=== PATIENT | male | born 1980 | race African-American/Black ===

== ENCOUNTER 2019-03-03 09:54 | Inpatient (IN) | payer OTHER ==
[2019-03-03 11:10] VITALS: BMI 28.0
--- NOTE | 2019-03-03 14:12 | HP ---
CIWA Score Nausea/Vomitin-No Nausea/No Vomiting Muscle Tremors: 3 Anxiety: 2 Agitation: 0-Normal Activity Paroxysmal Sweats: 2 Orientation: 0-Oriented Tacttile Disturbances: 1-Very Mild Itch/Numbness Auditory Disturbances: 0-None Visual Disturbances: 0-None Headache: 5-Severe (8/10 COLEMAN of frontal) CIWA-Ar Total Score: 13 - Admission Criteria OASAS Guidelines: Admission for Medically Managed Detox: Requires at least one of the followin. CIWA greater than 12 2. Seizures within the past 24 hours 3. Delirium tremens within the past 24 hours 4. Hallucinations within the past 24 hours 5. Acute intervention needed for co occurring medical disorder 6. Acute intervention needed for co occurring psychiatric disorder 7. Severe withdrawal that cannot be handled at a lower level of care (continued vomiting, continued diarrhea, abnormal vital signs) requiring intravenous medication and/or fluids 8. Admission ROS S - [facility] Chief Complaint: Detox from EtOH and cocaine Allergies/Adverse Reactions: Allergies Allergy/AdvReac Type Severity Reaction Status Date / Time No Known Allergies Allergy Verified 03/03/19 11:05 History of Present Illness: 38M w/ pmh of eczema, depression, bipolar, insomonia presenting to [facility] for detox from EtOH, cocaine. Yesterday, seen at [facility] for chest pain but testing was all neg except for blood in urine. Drinks x8-10 24oz cans. Last drink ~2300. Started drinking at 14y/o. Starts drinking after lunch. Crashed bike once, CT H neg. Denies blackouts, tremors, seizures. Uses cocaine(nasal), $ 20 x2bags; once every 6mo. Started cocaine at 29y/o. Last cocaine was 1wk prior. Occasional MJ for insomnia. Smokes 1/2ppd. Denies IVDU. Incarcerated from 2009 - 2013 for armed bank robbery. Not on probation. Has relapsed in last few year. Has a that drinks. Last detox was ~late 90's. Lives with but has been undomiciled for ~1week. Does not currently work. Exam Limitations: No Limitations - Ebola screening Have you traveled outside of the country in the last 21 days: No Have you had contact with anyone from an Ebola affected area: No Do you have a fever: No - Review of Systems EENT: denies: Blurred Vision, Double Vision Respiratory: denies: Cough, Wheezing Cardiac: denies: Chest Pain, Chest Tightness GI: denies: Abdominal Distended, Nausea, Vomiting : reports: Dysuria. denies: Urgency Neuro: reports: Headache (9/10 pain in the frontal and top of head) Endocrine: denies: [place] Psychiatric: reports: Orientated x3, Agitated, Anxious Patient History - Patient Medical History Hx Cancer: No Hx Cardiac Disorders: No Hx Hypercholesterolemia: No HX Cerebrovascular Accident: No Hx Seizures: No Hx Diabetes: No Hx Gastrointestinal Disorders: No - Patient Surgical History Past Surgical History: No Hx Neurologic Surgery: No Hx Appendectomy: No Hx Cholecystectomy: No - Smoking Cessation Smoking history: Current every day smoker Have you smoked in the past 12 months: Yes Aproximately how many cigarettes per day: 10 Initiated information on smoking cessation: No - Substance & Tx. History Hx Alcohol Use: Yes Hx Substance Use: Yes Substance Use Type: Cocaine, Marijuana - Substances abused Alcohol Substance route: Oral Frequency: Daily Amount used: LIQUOR- 4PTS/ 5- 24OZ BEERS Age of first use: 14 Date of last use: 03/02/19 Family Disease History - Family Disease History Family Disease History: Heart Disease: Mother ([place] [id number]), Other: Daughter Other Family History: Uncle with lung and oral Ca Admission Physical Exam S - Vital Signs Vital Signs: Vital Signs - 24 hr 03/03/19 11:05 Temperature 98.2 F Pulse Rate 52 L Respiratory 18 Rate Blood Pressure 122/79 - Physical General Appearance: Yes: No Apparent Distress, Nourished, Appropriately Dressed HEENTM: Yes: Normocephalic, Pale Conjunctivae R, Pale Conjunctivae L, Scleral Ictenus R, Scleral Ictenus L Respiratory: Yes: Within Normal Limits, Chest Non-Tender, Lungs Clear, No Respiratory Distress, No Accessory Muscle Use. No: Wheezing Neck: Yes: Trachea in good position Cardiology: Yes: S1, S2, Tachycardia. No: Bradycardia, Systolic Murmur Abdominal: Yes: Non Tender, Flat, Soft Extremities: Yes: Normal Range of Motion Neurological: Yes: Fully Oriented, Alert Breathalyzer - Breathalyzer Breathalyzer: 0 Urine Drug Screen - Test Device Lot number: [id number] Expiration date: 11/14/20 - Control Is test valid?: Yes - Results Drug screen NEGATIVE: Yes Urine drug screen results: THC-Marijuana Inpatient Rehab Admission - Rehab Decision to Admit Inpatient rehab admission?: No
[2019-03-03] MEDS ORDERED: MAGNESIUM HYDROX 2400MG/30ML ORAL SUSPENSION 30 ML CUP PO PRN (14:35)
[2019-03-03] MEDS ORDERED: diazePAM 5 MG TABLET PO PRN (14:35)
[2019-03-03] MEDS ORDERED: hydrOXYzine PAMOATE 25 MG CAPSULE (FP) PO PRN (14:35)
[2019-03-03] MEDS ORDERED: MAG HYDROX/AL HYDROX/SIMETH 30 ML UNIT-DOSE CUP PO PRN (14:35)
[2019-03-03] MEDS ORDERED: NICOTINE POLACRILEX 2 MG GUM BUC PRN (14:35)
[2019-03-03] MEDS ORDERED: MENTHOL/PHENOL 1 EACH UD MM PRN (14:35)
[2019-03-03] MEDS ORDERED: MAGNESIUM CITRATE 300 ML BOTTLE PO PRN (14:35)
[2019-03-03] MEDS ORDERED: ACETAMINOPHEN 325 MG TABLET (FP) PO PRN ×2 (14:35)
[2019-03-03] MEDS ORDERED: METHOCARBAMOL 500 MG TABLET PO PRN (14:35)
[2019-03-03] MEDS ORDERED: IBUPROFEN 400 MG TABLET (FP) PO PRN (14:35)
[2019-03-03] MEDS ORDERED: BISMUTH SUBSALICYLATE 524 MG/30 ML UD PO PRN (14:35)
--- NOTE | 2019-03-03 14:40 | PN ---
Teaching Attending Note Name of Resident: Romaine Naik ATTENDING PHYSICIAN STATEMENT I saw and evaluated the patient. I reviewed the resident's note and discussed the case with the resident. I agree with the resident's findings and plan as documented. SUBJECTIVE: 38 Y.O. MALE W/ ETOH DEPENDENCE , REPORTS DAILY ETOH USE , CURRENT SYMPTOMS ABOVE , DENIES SEIZURES / BLACKOUTS/ OCCASIONAL TREMORS . PT IS HOSTILE, IRRITABLE AND ALEX , STATES NOT INTERESTED IN OUTPT PROGRAM OR INPT REHAB . STATES WENT TO [facility] 1 WEEK AGO 2/2 CHEST PAIN , PER PT ALL WNL , WENT AGAIN LAST NIGHT AND DECIDED TO COME TO DETOX INSTEAD. OBJECTIVE: WNWD Vital Signs - 24 hr 03/03/19 11:05 Temperature 98.2 F Pulse Rate 52 L Respiratory 18 Rate Blood Pressure 122/79 ASSESSMENT AND PLAN: ETOH DEPENDENCE - VALIUM TAPER .
[2019-03-03] MEDS: diazePAM 5 MG TABLET PO SCH ×2 (15:33→22:03)
[2019-03-03 16:39] LABS: HEMOGLOBIN 12.6 GM/dL (11.7-16.9); MCH 27.6 pg (25.7-33.7); MCHC 32.3 g/dl (32.0-35.9); MEAN CELL VOLUME 85.5 fl (80-96); MEAN PLT VOLUME 8.4 fl (7.5-11.1); PLATELET COUNT 252 K/MM3 (134-434); RBC 4.56 M/mm3 (4.00-5.60); RDW 13.2 % (11.9-15.9); WHITE BLOOD COUNT 5.8 K/mm3 (4.0-10.0)
[2019-03-03 16:54] LABS: ALBUMIN 3.9 g/dl (3.4-5.0); BILIRUBIN,TOTAL 0.4 mg/dL (0.2-1); CALCIUM 8.9 mg/dL (8.5-10.1); CREATININE 0.9 mg/dL (0.55-1.3); POTASSIUM 4.3 mmol/L (3.5-5.1); TOT PROT 7.5 g/dl (6.4-8.2)
[2019-03-03] MEDS: THIAMINE HCL 100 MG TABLET (FP) PO SCH (22:02)
[2019-03-03] MEDS: MELATONIN 5 MG TABLETS PO PRN (22:03)
[2019-03-04] MEDS: diazePAM 5 MG TABLET PO SCH ×3 (05:52→22:05)
[2019-03-04] MEDS: PRENATAL VITAMINS W/ FOLIC ACID TABLET (FP) PO SCH (10:23)
--- NOTE | 2019-03-04 11:44 | PN ---
[facility] CIWA - CIWA Score Nausea/Vomitin-Mild Nausea/No Vomiting Muscle Tremors: 3 Anxiety: 1-Mildly Anxious Agitation: 1-Slight > Activity Paroxysmal Sweats: 2 Orientation: 0-Oriented Tacttile Disturbances: 1-Very Mild Itch/Numbness Auditory Disturbances: 0-None Visual Disturbances: 0-None Headache: 1-Very Mild CIWA-Ar Total Score: 10 S Progress Note (SOAP) Subjective: doing well with valium detox regimen resting on bed comfortably tremor and sweating Objective: 03/04/19 11:43 Vital Signs Temperature 97.0 F L 03/04/19 09:33 Pulse Rate 80 03/04/19 09:33 Respiratory Rate 18 03/04/19 09:33 Blood Pressure 115/61 03/04/19 09:33 O2 Sat by Pulse Oximetry (%) Laboratory Last Values WBC 5.8 K/mm3 (4.0-10.0) 03/03/19 15:00 RBC 4.56 M/mm3 (4.00-5.60) 03/03/19 15:00 Hgb 12.6 GM/dL (11.7-16.9) 03/03/19 15:00 Hct 39.0 % (35.4-49) 03/03/19 15:00 MCV 85.5 fl (80-96) 03/03/19 15:00 MCH 27.6 pg (25.7-33.7) 03/03/19 15:00 MCHC 32.3 g/dl (32.0-35.9) 03/03/19 15:00 RDW 13.2 % (11.9-15.9) 03/03/19 15:00 Plt Count 252 K/MM3 (134-434) 03/03/19 15:00 MPV 8.4 fl (7.5-11.1) 03/03/19 15:00 Sodium 139 mmol/L (136-145) 03/03/19 15:00 Potassium 4.3 mmol/L (3.5-5.1) 03/03/19 15:00 Chloride 105 mmol/L (98-107) 03/03/19 15:00 Carbon Dioxide 30 mmol/L (21-32) 03/03/19 15:00 Anion Gap 5 MMOL/L (8-16) L 03/03/19 15:00 BUN 8.0 mg/dL (7-18) 03/03/19 15:00 Creatinine 0.9 mg/dL (0.55-1.3) 03/03/19 15:00 Est GFR (CKD-EPI)AfAm 124.26 03/03/19 15:00 Est GFR (CKD-EPI)NonAf 107.21 03/03/19 15:00 Random Glucose 80 mg/dL (74-106) 03/03/19 15:00 Calcium 8.9 mg/dL (8.5-10.1) 03/03/19 15:00 Total Bilirubin 0.4 mg/dL (0.2-1) 03/03/19 15:00 AST 14 U/L (15-37) L 03/03/19 15:00 ALT 18 U/L (13-61) 03/03/19 15:00 Alkaline Phosphatase 54 U/L (45-117) 03/03/19 15:00 Total Protein 7.5 g/dl (6.4-8.2) 03/03/19 15:00 Albumin 3.9 g/dl (3.4-5.0) 03/03/19 15:00 RPR Titer Nonreactive (NONREACTIVE) 03/03/19 15:00 lab noted Assessment: 03/04/19 11:43 alcohol withdrawal sx Plan: continue valium detox regimen
[2019-03-04] MEDS: MELATONIN 5 MG TABLETS PO PRN (22:05)
[2019-03-04] MEDS: THIAMINE HCL 100 MG TABLET (FP) PO SCH (22:05)
[2019-03-05] MEDS ORDERED: diazePAM 5 MG TABLET PO ONE (06:00)
[2019-03-05] MEDS ORDERED: diazePAM 5 MG TABLET PO SCH (06:00)
[2019-03-05] MEDS: PRENATAL VITAMINS W/ FOLIC ACID TABLET (FP) PO SCH (10:33)
--- NOTE | 2019-03-05 12:58 | PN ---
[facility] CIWA - CIWA Score Nausea/Vomitin-No Nausea/No Vomiting Muscle Tremors: 2 Anxiety: 2 Agitation: 2 Paroxysmal Sweats: No Perspiration Orientation: 0-Oriented Tacttile Disturbances: 1-Very Mild Itch/Numbness Auditory Disturbances: 0-None Visual Disturbances: 0-None Headache: 0-None Present CIWA-Ar Total Score: 7 S Progress Note (SOAP) Subjective: doing well with valium detox regimen discuss aftercare with staff prefers [facility] Objective: 03/05/19 12:59 Vital Signs Temperature 97.0 F L 03/05/19 10:00 Pulse Rate 84 03/05/19 10:00 Respiratory Rate 16 03/05/19 10:00 Blood Pressure 103/62 03/05/19 10:00 O2 Sat by Pulse Oximetry (%) Laboratory Last Values WBC 5.8 K/mm3 (4.0-10.0) 03/03/19 15:00 RBC 4.56 M/mm3 (4.00-5.60) 03/03/19 15:00 Hgb 12.6 GM/dL (11.7-16.9) 03/03/19 15:00 Hct 39.0 % (35.4-49) 03/03/19 15:00 MCV 85.5 fl (80-96) 03/03/19 15:00 MCH 27.6 pg (25.7-33.7) 03/03/19 15:00 MCHC 32.3 g/dl (32.0-35.9) 03/03/19 15:00 RDW 13.2 % (11.9-15.9) 03/03/19 15:00 Plt Count 252 K/MM3 (134-434) 03/03/19 15:00 MPV 8.4 fl (7.5-11.1) 03/03/19 15:00 Sodium 139 mmol/L (136-145) 03/03/19 15:00 Potassium 4.3 mmol/L (3.5-5.1) 03/03/19 15:00 Chloride 105 mmol/L (98-107) 03/03/19 15:00 Carbon Dioxide 30 mmol/L (21-32) 03/03/19 15:00 Anion Gap 5 MMOL/L (8-16) L 03/03/19 15:00 BUN 8.0 mg/dL (7-18) 03/03/19 15:00 Creatinine 0.9 mg/dL (0.55-1.3) 03/03/19 15:00 Est GFR (CKD-EPI)AfAm 124.26 03/03/19 15:00 Est GFR (CKD-EPI)NonAf 107.21 03/03/19 15:00 Random Glucose 80 mg/dL (74-106) 03/03/19 15:00 Calcium 8.9 mg/dL (8.5-10.1) 03/03/19 15:00 Total Bilirubin 0.4 mg/dL (0.2-1) 03/03/19 15:00 AST 14 U/L (15-37) L 03/03/19 15:00 ALT 18 U/L (13-61) 03/03/19 15:00 Alkaline Phosphatase 54 U/L (45-117) 03/03/19 15:00 Total Protein 7.5 g/dl (6.4-8.2) 03/03/19 15:00 Albumin 3.9 g/dl (3.4-5.0) 03/03/19 15:00 RPR Titer Nonreactive (NONREACTIVE) 03/03/19 15:00 TB (QFT) Incubation (.) 03/03/19 15:00 TB Test (QFT) Nil 0.03 IU/mL (.) 03/03/19 15:00 TB Test (QFT) Mitogen >10.00 IU/mL (.) 03/03/19 15:00 TB Test (QFT) Antigen 0.03 IU/mL (.) 03/03/19 15:00 TB Test (QFT) Negative (Negative) 03/03/19 15:00 TB Positive Criteria (.) 03/03/19 15:00 lab noted Assessment: 03/05/19 12:59 alcohol withdrawal sx Plan: continue valium detox regimen
[2019-03-05] MEDS: THIAMINE HCL 100 MG TABLET (FP) PO SCH (22:04)
[2019-03-05] MEDS: MELATONIN 5 MG TABLETS PO PRN (22:04)
[2019-03-06] MEDS ORDERED: diazePAM 5 MG TABLET PO ONE (06:00)
[2019-03-06 09:35] VITALS: BP 134/78; PULSE 84; TEMP 98.1
--- NOTE | 2019-03-06 19:27 | DS ---
[facility] Detox Discharge Summary Admission Date: 03/03/19 Discharge Date: 03/06/19 - History Present History: Alcohol Dependence Additional Comments: PATIENT RETURNING HOME. PATIENT ADVISED TO CONSIDER LOCAL 12-STEP / AA OUTPATIENT SUPPORT GROUP PROGRAMS FOR AFTERCARE. PATIENT VERBALIZED UNDERSTANDING OF RECOMMENDATION. PATIENT WAS DISCHARGED FROM DETOX UNIT IN STABLE MEDICAL CONDITION. Pertinent Past History: Eczema, Depression, Bipolar Disorder, Insomnia. - Physical Exam Results Vital Signs: Vital Signs Temperature 98.1 F 03/06/19 09:34 Pulse Rate 84 03/06/19 09:34 Respiratory Rate 18 03/06/19 09:34 Blood Pressure 134/78 03/06/19 09:34 O2 Sat by Pulse Oximetry (%) Pertinent Admission Physical Exam Findings: WITHDRAWAL SYMPTOMS. Laboratory Tests 03/03/19 03/03/19 03/03/19 15:00 15:00 15:00 WBC 5.8 RBC 4.56 Hgb 12.6 Hct 39.0 MCV 85.5 MCH 27.6 MCHC 32.3 RDW 13.2 Plt Count 252 MPV 8.4 Sodium 139 Potassium 4.3 Chloride 105 Carbon Dioxide 30 Anion Gap 5 L BUN 8.0 Creatinine 0.9 Est GFR (CKD-EPI)AfAm 124.26 Est GFR (CKD-EPI)NonAf 107.21 Random Glucose 80 Calcium 8.9 Total Bilirubin 0.4 AST 14 L ALT 18 Alkaline Phosphatase 54 Total Protein 7.5 Albumin 3.9 RPR Titer TB (QFT) Incubation TB Test (QFT) Nil 0.03 TB Test (QFT) Mitogen >10.00 TB Test (QFT) Antigen 0.03 TB Test (QFT) Negative TB Positive Criteria 03/03/19 15:00 WBC RBC Hgb Hct MCV MCH MCHC RDW Plt Count MPV Sodium Potassium Chloride Carbon Dioxide Anion Gap BUN Creatinine Est GFR (CKD-EPI)AfAm Est GFR (CKD-EPI)NonAf Random Glucose Calcium Total Bilirubin AST ALT Alkaline Phosphatase Total Protein Albumin RPR Titer Nonreactive TB (QFT) Incubation TB Test (QFT) Nil TB Test (QFT) Mitogen TB Test (QFT) Antigen TB Test (QFT) TB Positive Criteria LABS NOTED. - Treatment Hospital Course: Detox Protocol Followed, Detoxed Safely, Responded well, Discharged Condition Good Patient has Accepted a Rehab Referral to: PATIENT ADVISED TO CONSIDER LOCAL 12- STEP/AA OUTPATIENT SUPPORT GROUPS. - Medication Discharge Medications: Ambulatory Orders NK [No Known Home Medication] 03/03/19 - Diagnosis (1) Alcohol dependence with uncomplicated withdrawal Status: Acute - AMA Did Patient Leave Against Medical Advice: No S CIWA - CIWA Score Nausea/Vomitin-No Nausea/No Vomiting Muscle Tremors: None Anxiety: 0-No Anxiety, at Ease Agitation: 0-Normal Activity Paroxysmal Sweats: No Perspiration Orientation: 0-Oriented Tacttile Disturbances: 0-None Auditory Disturbances: 0-None Visual Disturbances: 0-None Headache: 0-None Present CIWA-Ar Total Score: 0
== END 2019-03-06 09:00 | disposition home or self-care (01) | DRG 774 ==
LOC: YASAS 09:54 → Y3N 14:45
PROVIDERS: ADMIT Surgery; ATTEND Surgery
PROC: HZ2ZZZZ Detoxification Services for Substance Abuse Treatment (ICD-10-PCS; principal; 2019-03-03)
DX: F10.230 Alcohol dependence with withdrawal, uncomplicated (principal); F14.20 Cocaine dependence, uncomplicated; F17.210 Nicotine dependence, cigarettes, uncomplicated; F31.9 Bipolar disorder, unspecified; G47.00 Insomnia, unspecified; L30.9 Dermatitis, unspecified
CPT/HCPCS: 36415; 80053; 85027; 86480; 86593

== ENCOUNTER 2019-03-20 12:36 | Inpatient (IN) | payer OTHER ==
[2019-03-20 14:22] VITALS: BMI 28.0
--- NOTE | 2019-03-20 16:12 | HP ---
CIWA Score Nausea/Vomitin-No Nausea/No Vomiting Muscle Tremors: 2 Anxiety: 2 Agitation: 0-Normal Activity Paroxysmal Sweats: 2 Orientation: 0-Oriented Tacttile Disturbances: 3-Moderate Itch/Numb/Burn Auditory Disturbances: 0-None Visual Disturbances: 1-Very Mild Sensitivity Headache: 3-Moderate CIWA-Ar Total Score: 13 - Admission Criteria OASAS Guidelines: Admission for Medically Managed Detox: Requires at least one of the followin. CIWA greater than 12 2. Seizures within the past 24 hours 3. Delirium tremens within the past 24 hours 4. Hallucinations within the past 24 hours 5. Acute intervention needed for co occurring medical disorder 6. Acute intervention needed for co occurring psychiatric disorder 7. Severe withdrawal that cannot be handled at a lower level of care (continued vomiting, continued diarrhea, abnormal vital signs) requiring intravenous medication and/or fluids 8. Patient presents the following: CIWA greater than 12 Admission Criteria Met: Admission criteria met Admitting History and Physical - Smoking History Smoking history: Current every day smoker Have you smoked in the past 12 months: Yes Aproximately how many cigarettes per day: 10 - Alcohol/Substance Use Hx Alcohol Use: Yes Admission ROS BHS - HPI Chief Complaint: alcohol withdrawal Allergies/Adverse Reactions: Allergies Allergy/AdvReac Type Severity Reaction Status Date / Time No Known Allergies Allergy Verified 03/20/19 14:08 History of Present Illness: Patient is a 38 yo AA, male, homeless, unemployed, with history of alcohol dependence is here seeking inpatient detox d/t withdrawal sx, patient was referred from [facility] after evaluated for chest pain. Denies hx of seizures and blackouts. Reports four year sobriety but relapse in 2013, patient is motivated at this time to attend rehab post detox. Last detox [facility] 03/03/19 -. PMHX: eczema. Psych: Bipolar and depression, denies SI/HI Denies hx of suicide attempt. Exam Limitations: No Limitations - Ebola screening Have you traveled outside of the country in the last 21 days: No Have you had contact with anyone from an Ebola affected area: No Do you have a fever: No - Review of Systems Constitutional: Changes in sleep, Unintentional Wgt. Loss EENT: reports: No Symptoms Reported Respiratory: reports: No Symptoms reported Cardiac: reports: See HPI, Lightheadedness GI: reports: Poor Appetite, Poor Fluid Intake : reports: No Symptoms Reported Musculoskeletal: reports: Back Pain Integumentary: reports: See HPI, Dryness, Pruritus Neuro: reports: Headache Endocrine: reports: No Symptoms Reported Hematology: reports: No Symptoms Reported Psychiatric: reports: Orientated x3, Anxious Other Systems: Reviewed and Negative Patient History - Patient Medical History Hx Anemia: No Hx Asthma: No Hx Chronic Obstructive Pulmonary Disease (COPD): No Hx Cancer: No Hx Cardiac Disorders: No Hx Congestive Heart Failure: No Hx Hypertension: No Hx Hypercholesterolemia: No Hx Pacemaker: No HX Cerebrovascular Accident: No Hx Seizures: No Hx Diabetes: No Hx Gastrointestinal Disorders: No Hx Liver Disease: No Hx Genitourinary Disorders: No Hx Sexually Transmitted Disorders: No Hx Renal Disease (ESRD): No Hx Thyroid Disease: No Hx Human Immunodeficiency Virus (HIV): No Hx Hepatitis C: No Hx Depression: Yes Hx Suicide Attempt: No Hx Bipolar Disorder: Yes Hx Schizophrenia: No - Patient Surgical History Past Surgical History: No Hx Neurologic Surgery: No Hx Cataract Extraction: No Hx Cardiac Surgery: No Hx Lung Surgery: No Hx Breast Surgery: No Hx Breast Biopsy: No Hx Abdominal Surgery: No Hx Appendectomy: No Hx Cholecystectomy: No Hx Genitourinary Surgery: No Hx Section: No Hx Orthopedic Surgery: No Anesthesia Reaction: No - PPD History Previous Implant?: No (NEgative Quantiferon 02/2019) Documented Results: Negative w/proof PPD to be Administered?: No - Smoking Cessation Smoking history: Current every day smoker Have you smoked in the past 12 months: Yes Aproximately how many cigarettes per day: 10 Hx Chewing Tobacco Use: No Initiated information on smoking cessation: Yes 'Breaking Loose' booklet given: 03/20/19 - Substance & Tx. History Hx Alcohol Use: Yes Hx Substance Use: Yes Substance Use Type: Alcohol, Cocaine, Marijuana Hx Substance Use Treatment: Yes ([facility] 03/03/19 -03/06/19) - Substances abused Alcohol Substance route: Oral Frequency: Daily Amount used: 2- 3 cans x 24 ounces of beer + 1/4 pint liquor Age of first use: 14 Date of last use: 03/19/19 Cocaine Substance route: Inhalation Frequency: 1-3 times last 30 days Amount used: 1 to 2 dime bag Age of first use: 29 Date of last use: 03/04/19 Marijuana/Hashish Substance route: Smoking Frequency: Daily Amount used: 3 bags Age of first use: 14 Date of last use: 03/17/19 Admission Physical Exam BHS - Vital Signs Vital Signs: Vital Signs - 24 hr 03/20/19 14:06 Temperature 97.7 F Pulse Rate 69 Respiratory 18 Rate Blood Pressure 109/69 - Physical General Appearance: Yes: Appropriately Dressed, Mild Distress, Anxious HEENTM: Yes: EOMI, Hearing grossly Normal, Normal ENT Inspection, Pharynx Normal , Tm's normal Respiratory: Yes: Chest Non-Tender, Lungs Clear, Normal Breath Sounds, No Respiratory Distress, No Accessory Muscle Use Neck: Yes: Within Normal Limits Breast: Yes: Breast Exam Deferred Cardiology: Yes: Regular Rhythm, Regular Rate Abdominal: Yes: Normal Bowel Sounds, Non Tender, Flat, Soft Genitourinary: Yes: Within Normal Limits Back: Yes: Normal Inspection Musculoskeletal: Yes: full range of Motion, Gait Steady, Pelvis Stable Extremities: Yes: Normal Capillary Refill, Normal Inspection, Normal Range of Motion, Non-Tender Neurological: Yes: batching operator II-XII NML intact, Fully Oriented, Alert, Motor Strength 5/5, Normal Mood/Affect, Normal Response Integumentary: Yes: Normal Color, Dry, Warm Lymphatic: Yes: Within Normal Limits - Diagnostic (1) Psychiatric disorder Current Visit: Yes Status: Suspected Comment: psych consult ordered (2) Eczema Current Visit: Yes Status: Chronic Qualifiers: Eczema type: flexural Qualified Code(s): L20.82 - Flexural eczema (3) Alcohol dependence with uncomplicated withdrawal Current Visit: Yes Status: Acute Comment: detox follow with rehab eductaed on MAT re: vivitrol benefits and risks harm reduction reviewed Breathalyzer - Breathalyzer Breathalyzer: 0 Urine Drug Screen - Test Device Lot number: [id number] Expiration date: 11/14/20 - Control Is test valid?: Yes - Results Drug screen NEGATIVE: Yes Urine drug screen results: THC-Marijuana Inpatient Rehab Admission - Rehab Decision to Admit Inpatient rehab admission?: No
[2019-03-20] MEDS ORDERED: MAG HYDROX/AL HYDROX/SIMETH 30 ML UNIT-DOSE CUP PO PRN (16:19)
[2019-03-20] MEDS ORDERED: chlordiazePOXIDE HCL 10 MG CAPSULE PO PRN (16:19)
[2019-03-20] MEDS ORDERED: MAGNESIUM HYDROX 2400MG/30ML ORAL SUSPENSION 30 ML CUP PO PRN (16:19)
[2019-03-20] MEDS ORDERED: hydrOXYzine PAMOATE 25 MG CAPSULE (FP) PO PRN (16:19)
[2019-03-20] MEDS ORDERED: METHOCARBAMOL 500 MG TABLET PO PRN (16:19)
[2019-03-20] MEDS ORDERED: ACETAMINOPHEN 325 MG TABLET (FP) PO PRN ×2 (16:19)
[2019-03-20] MEDS ORDERED: BISMUTH SUBSALICYLATE 524 MG/30 ML UD PO PRN (16:19)
[2019-03-20] MEDS ORDERED: IBUPROFEN 400 MG TABLET (FP) PO PRN (16:19)
[2019-03-20] MEDS ORDERED: MENTHOL/PHENOL 1 EACH UD MM PRN (16:19)
[2019-03-20] MEDS ORDERED: MAGNESIUM CITRATE 300 ML BOTTLE PO PRN (16:19)
[2019-03-20] MEDS ORDERED: diphenhydrAMINE HCL 50 MG CAPSULE PO PRN (16:20)
[2019-03-20] MEDS: chlordiazePOXIDE HCL 25 MG CAPSULE PO SCH (22:14)
[2019-03-20] MEDS: MELATONIN 5 MG TABLETS PO PRN (22:14)
[2019-03-20] MEDS: THIAMINE HCL 100 MG TABLET (FP) PO SCH (22:14)
[2019-03-21] MEDS: chlordiazePOXIDE HCL 25 MG CAPSULE PO SCH ×2 (05:53→13:10)
--- NOTE | 2019-03-21 09:47 | EKG ---
Test Reason : Blood Pressure : / mmHG Vent. Rate : 063 BPM Atrial Rate : 063 BPM P-R Int : 144 ms QRS Dur : 080 ms QT Int : 430 ms P-R-T Axes : 024 045 -09 degrees QTc Int : 440 ms NORMAL SINUS RHYTHM WITH SINUS ARRHYTHMIA NONSPECIFIC ST ABNORMALITY NO PREVIOUS ECGS AVAILABLE Confirmed by TIMOTHY SANCHEZ, DARRIN ([id number]) on 03/21/2019 9:47:29 AM Referred By: BHARATH LUNDY Confirmed By:DARRIN AGUIRRE MD
[2019-03-21] MEDS: PRENATAL VITAMINS W/ FOLIC ACID TABLET (FP) PO SCH (10:35)
[2019-03-21 11:20] LABS: HEMATOCRIT 36.7 % (35.4-49); HEMOGLOBIN 12.3 GM/dL (11.7-16.9); MCH 28.1 pg (25.7-33.7); MCHC 33.5 g/dl (32.0-35.9); MEAN PLT VOLUME 8.3 fl (7.5-11.1); PLATELET COUNT 250 K/MM3 (134-434); RBC 4.37 M/mm3 (4.00-5.60); RDW 13.6 % (11.9-15.9); WHITE BLOOD COUNT 5.5 K/mm3 (4.0-10.0)
[2019-03-21 11:26] LABS: ALBUMIN 3.6 g/dl (3.4-5.0); BILIRUBIN,TOTAL 0.4 mg/dL (0.2-1); BLOOD UREA NITROGEN 11.1 mg/dL (7-18); CALCIUM 8.4 mg/dL (8.5-10.1); CREATININE 0.9 mg/dL (0.55-1.3); TOT PROT 6.5 g/dl (6.4-8.2)
--- NOTE | 2019-03-21 14:21 | CONSULT ---
[facility] Psychiatric Consult - Data Date of interview: 03/21/19 Admission source: [facility] Identifying data: Patient is a 38 year old single male, without children, unemployed, domiciled, and is supported by food stamps. This is one of multiple admissions for patient. Patient admitted to for alcohol and cocaine dependence. Substance Abuse History: Smoking Cessation. Smoking history: Current every day smoker. Have you smoked in the past 12 months: Yes. Aproximately how many cigarettes per day: 10. Hx Chewing Tobacco Use: No. Initiated information on smoking cessation: Yes. 'Breaking Loose' booklet given: 03/20/19. - Substance & Tx. History. Hx Alcohol Use: Yes. Hx Substance Use: Yes. Substance Use Type : Alcohol, Cocaine, Marijuana. Hx Substance Use Treatment: Yes ([facility] 03/03/19 -). - Substances abused. Alcohol. Substance route: Oral. Frequency: Daily. Amount used: 2- 3 cans x 24 ounces of beer + 1/4 pint liquor. Age of first use: 14. Date of last use: 03/19/19. Cocaine. Substance route: Inhalation. Frequency: 1-3 times last 30 days. Amount used: 1 to 2 dime bag. Age of first use: 29. Date of last use: 03/04/19. Marijuana/Hashish. Substance route: Smoking. Frequency: Daily. Amount used: 3 bags. Age of first use: 14. Date of last use: 03/17/19 Medical History: denies. Psychiatric History: Patient denies history of psychiatric hospitalizations and suicide attempt. Mr. Andrade reports seeing a psychiatrist one time while in his 20's and reports being diagnosed with bipolar depression. Patient unable to recall the medications prescribed to him. At present patient reports stable mood but is experiencing diffficulty sleeping. Physical/Sexual Abuse/Trauma History: denies. Mental Status Exam - Mental Status Exam Alert and Oriented to: Time, Place, Person Cognitive Function: Good Patient Appearance: Well Groomed Mood: Euthymic Affect: Mood Congruent Patient Behavior: Cooperative Speech Pattern: Appropriate Voice Loudness: Normal Thought Process: Goal Oriented Thought Disorder: Not Present Hallucinations: Denies Suicidal Ideation: Denies Homicidal Ideation: Denies Insight/Judgement: Poor Sleep: Poorly Appetite: Fair Muscle strength/Tone: Normal Gait/Station: Normal Psychiatric Findings - Problem List ([place] 1, 2,3) (1) Cocaine dependence Current Visit: Yes Status: Acute (2) Alcohol dependence with uncomplicated withdrawal Current Visit: Yes Status: Acute Comment: detox follow with rehab eductaed on MAT re: vivitrol benefits and risks harm reduction reviewed (3) Substance-induced sleep disorder Current Visit: Yes Status: Acute (4) Substance induced mood disorder Current Visit: Yes Status: Suspected - Initial Treatment Plan Initial Treatment Plan: Psychoeducation provided. Detoxification in progress. Will order Seroquel 50mg (as per patient's requst) for insomnia. Patient reports favorable effects from previously accepting seroquel in the past. Benefits and side effects discussed. Verbal consent given.
[2019-03-21] MEDS ORDERED: diazePAM 5 MG TABLET PO ONE (14:34)
--- NOTE | 2019-03-21 14:44 | PN ---
S CIWA - CIWA Score Nausea/Vomitin-No Nausea/No Vomiting Muscle Tremors: 3 Anxiety: 3 Agitation: 0-Normal Activity Paroxysmal Sweats: No Perspiration Orientation: 0-Oriented Tacttile Disturbances: 1-Very Mild Itch/Numbness Auditory Disturbances: 0-None Visual Disturbances: 2-Mild Sensitivity Headache: 3-Moderate CIWA-Ar Total Score: 12 BHS Progress Note (SOAP) Subjective: Anxious, Tremors, Fatigue, H/A. Objective: PATIENT A & O X 3. IN NO ACUTE DISTRESS. 03/21/19 14:41 Vital Signs Temperature 98.1 F 03/21/19 14:38 Pulse Rate 68 03/21/19 14:38 Respiratory Rate 18 03/21/19 14:38 Blood Pressure 123/75 03/21/19 14:38 O2 Sat by Pulse Oximetry (%) Laboratory Tests 03/21/19 03/21/19 08:10 08:10 WBC 5.5 RBC 4.37 Hgb 12.3 Hct 36.7 MCV 84.0 MCH 28.1 MCHC 33.5 RDW 13.6 Plt Count 250 MPV 8.3 Sodium 141 Potassium 4.0 Chloride 105 Carbon Dioxide 29 Anion Gap 7 L BUN 11.1 Creatinine 0.9 Est GFR (CKD-EPI)AfAm 124.26 Est GFR (CKD-EPI)NonAf 107.21 Random Glucose 64 L Calcium 8.4 L Total Bilirubin 0.4 AST 19 ALT 23 Alkaline Phosphatase 59 Total Protein 6.5 Albumin 3.6 LABS NOTED. DETOX ADMISSION RPR RESULT PENDING. 03/21/19 14:44 Assessment: 03/21/19 14:41 WITHDRAWAL SYMPTOMS. Plan: CONTINUE DETOX. PATIENT REPORTS THAT LIBRIUM IS CAUSING HIM TO HAVE A HEADACHE AND THAT HAS HAPPENED IN THE PAST WHEN HE HAS TAKEN LIBRIUM, WELL. AT PATIENT'S REQUEST, LIBRIUM MEDICATION REGIMEN CHANGED TO VALIUM MEDICATION REGIMEN.
[2019-03-21] MEDS: MELATONIN 5 MG TABLETS PO PRN (22:22)
[2019-03-21] MEDS: THIAMINE HCL 100 MG TABLET (FP) PO SCH (22:22)
[2019-03-21] MEDS: QUEtiapine FUMARATE 50 MG TABLET PO SCH (22:22)
[2019-03-21] MEDS: diazePAM 5 MG TABLET PO SCH (22:22)
[2019-03-22] MEDS ORDERED: chlordiazePOXIDE 5 MG CAPSULE PO SCH (05:00)
[2019-03-22] MEDS: diazePAM 5 MG TABLET PO SCH ×3 (05:54→22:16)
[2019-03-22] MEDS: diazePAM 5 MG TABLET PO PRN (10:24)
[2019-03-22] MEDS: PRENATAL VITAMINS W/ FOLIC ACID TABLET (FP) PO SCH (10:24)
--- NOTE | 2019-03-22 10:38 | PN ---
[facility] CIWA - CIWA Score Nausea/Vomitin-No Nausea/No Vomiting Muscle Tremors: 2 Anxiety: 3 Agitation: 2 Paroxysmal Sweats: 1-Minimal Palms Moist Orientation: 0-Oriented Tacttile Disturbances: 0-None Auditory Disturbances: 0-None Visual Disturbances: 0-None Headache: 0-None Present CIWA-Ar Total Score: 8 S Progress Note (SOAP) Subjective: doing well with valium detox regimen ambulating on hallway social with peers in day room less tremor mild anxiety Objective: 03/22/19 10:38 Vital Signs Temperature 96.8 F L 03/22/19 09:09 Pulse Rate 83 03/22/19 09:09 Respiratory Rate 18 03/22/19 09:09 Blood Pressure 110/75 03/22/19 09:09 O2 Sat by Pulse Oximetry (%) Laboratory Last Values WBC 5.5 K/mm3 (4.0-10.0) 03/21/19 08:10 RBC 4.37 M/mm3 (4.00-5.60) 03/21/19 08:10 Hgb 12.3 GM/dL (11.7-16.9) 03/21/19 08:10 Hct 36.7 % (35.4-49) 03/21/19 08:10 MCV 84.0 fl (80-96) 03/21/19 08:10 MCH 28.1 pg (25.7-33.7) 03/21/19 08:10 MCHC 33.5 g/dl (32.0-35.9) 03/21/19 08:10 RDW 13.6 % (11.9-15.9) 03/21/19 08:10 Plt Count 250 K/MM3 (134-434) 03/21/19 08:10 MPV 8.3 fl (7.5-11.1) 03/21/19 08:10 Sodium 141 mmol/L (136-145) 03/21/19 08:10 Potassium 4.0 mmol/L (3.5-5.1) 03/21/19 08:10 Chloride 105 mmol/L (98-107) 03/21/19 08:10 Carbon Dioxide 29 mmol/L (21-32) 03/21/19 08:10 Anion Gap 7 MMOL/L (8-16) L 03/21/19 08:10 BUN 11.1 mg/dL (7-18) 03/21/19 08:10 Creatinine 0.9 mg/dL (0.55-1.3) 03/21/19 08:10 Est GFR (CKD-EPI)AfAm 124.26 03/21/19 08:10 Est GFR (CKD-EPI)NonAf 107.21 03/21/19 08:10 Random Glucose 64 mg/dL (74-106) L 03/21/19 08:10 Calcium 8.4 mg/dL (8.5-10.1) L 03/21/19 08:10 Total Bilirubin 0.4 mg/dL (0.2-1) 03/21/19 08:10 AST 19 U/L (15-37) 03/21/19 08:10 ALT 23 U/L (13-61) 03/21/19 08:10 Alkaline Phosphatase 59 U/L (45-117) 03/21/19 08:10 Total Protein 6.5 g/dl (6.4-8.2) 03/21/19 08:10 Albumin 3.6 g/dl (3.4-5.0) 03/21/19 08:10 RPR Titer Nonreactive (NONREACTIVE) 03/21/19 08:10 lab noted Assessment: 03/22/19 10:38 alcohol withdrawal sx Plan: continue valium detox regimen
[2019-03-22] MEDS: QUEtiapine FUMARATE 50 MG TABLET PO SCH (22:16)
[2019-03-22] MEDS: THIAMINE HCL 100 MG TABLET (FP) PO SCH (22:16)
[2019-03-22] MEDS: MELATONIN 5 MG TABLETS PO PRN (22:17)
[2019-03-23] MEDS ORDERED: chlordiazePOXIDE HCL 10 MG CAPSULE PO PRN
[2019-03-23] MEDS ORDERED: chlordiazePOXIDE HCL 10 MG CAPSULE PO SCH (05:00)
[2019-03-23] MEDS: diazePAM 5 MG TABLET PO SCH ×2 (05:46→17:28)
[2019-03-23] MEDS: diazePAM 5 MG TABLET PO PRN ×2 (08:39→13:32)
[2019-03-23] MEDS: PRENATAL VITAMINS W/ FOLIC ACID TABLET (FP) PO SCH (10:15)
[2019-03-23 13:17] VITALS: PULSE 75
--- NOTE | 2019-03-23 14:54 | PN ---
S CIWA - CIWA Score Nausea/Vomitin-No Nausea/No Vomiting Muscle Tremors: 2 Anxiety: 2 Agitation: 1-Slight > Activity Paroxysmal Sweats: 3 Orientation: 0-Oriented Tacttile Disturbances: 0-None Auditory Disturbances: 0-None Visual Disturbances: 0-None Headache: 0-None Present CIWA-Ar Total Score: 8 BHS Progress Note (SOAP) Subjective: Sweating, Anxious, Tremors. Patient reports That Current Withdrawal / Detox Symptoms have Subsided considerably in severity since time of admission to Detox Unit. Objective: PATIENT A & O X 3, OBSERVED AMBULATING ON DETOX UNIT UNASSISTED. IN NO ACUTE DISTRESS. 03/23/19 14:53 Vital Signs Temperature 99.3 F 03/23/19 13:16 Pulse Rate 75 03/23/19 13:16 Respiratory Rate 18 03/23/19 13:16 Blood Pressure 118/71 03/23/19 13:16 O2 Sat by Pulse Oximetry (%) Laboratory Tests 03/21/19 03/21/19 03/21/19 08:10 08:10 08:10 WBC 5.5 RBC 4.37 Hgb 12.3 Hct 36.7 MCV 84.0 MCH 28.1 MCHC 33.5 RDW 13.6 Plt Count 250 MPV 8.3 Sodium 141 Potassium 4.0 Chloride 105 Carbon Dioxide 29 Anion Gap 7 L BUN 11.1 Creatinine 0.9 Est GFR (CKD-EPI)AfAm 124.26 Est GFR (CKD-EPI)NonAf 107.21 Random Glucose 64 L Calcium 8.4 L Total Bilirubin 0.4 AST 19 ALT 23 Alkaline Phosphatase 59 Total Protein 6.5 Albumin 3.6 RPR Titer Nonreactive LABS NOTED. Assessment: 03/23/19 14:53 WITHDRAWAL SYMPTOMS. Plan: CONTINUE DETOX. PATIENT SCHEDULED FOR D/C FROM DETOX UNIT TOMORROW.
[2019-03-23 17:02] VITALS: BP 106/64; TEMP 97.7
--- NOTE | 2019-03-23 18:42 | PN ---
S Progress Note Note: Patient requesting to leave tonight instead of in a.m. Patient alert and oriented. Gait steady. CIWA-AR Score = 0. Vital Signs 03/23/19 03/23/19 13:16 17:01 Temperature 99.3 F 97.7 F Pulse Rate 75 75 Respiratory 18 18 Rate Blood Pressure 118/71 106/64 Laboratory Last Values WBC 5.5 K/mm3 (4.0-10.0) 03/21/19 08:10 RBC 4.37 M/mm3 (4.00-5.60) 03/21/19 08:10 Hgb 12.3 GM/dL (11.7-16.9) 03/21/19 08:10 Hct 36.7 % (35.4-49) 03/21/19 08:10 MCV 84.0 fl (80-96) 03/21/19 08:10 MCH 28.1 pg (25.7-33.7) 03/21/19 08:10 MCHC 33.5 g/dl (32.0-35.9) 03/21/19 08:10 RDW 13.6 % (11.9-15.9) 03/21/19 08:10 Plt Count 250 K/MM3 (134-434) 03/21/19 08:10 MPV 8.3 fl (7.5-11.1) 03/21/19 08:10 Sodium 141 mmol/L (136-145) 03/21/19 08:10 Potassium 4.0 mmol/L (3.5-5.1) 03/21/19 08:10 Chloride 105 mmol/L (98-107) 03/21/19 08:10 Carbon Dioxide 29 mmol/L (21-32) 03/21/19 08:10 Anion Gap 7 MMOL/L (8-16) L 03/21/19 08:10 BUN 11.1 mg/dL (7-18) 03/21/19 08:10 Creatinine 0.9 mg/dL (0.55-1.3) 03/21/19 08:10 Est GFR (CKD-EPI)AfAm 124.26 03/21/19 08:10 Est GFR (CKD-EPI)NonAf 107.21 03/21/19 08:10 Random Glucose 64 mg/dL (74-106) L 03/21/19 08:10 Calcium 8.4 mg/dL (8.5-10.1) L 03/21/19 08:10 Total Bilirubin 0.4 mg/dL (0.2-1) 03/21/19 08:10 AST 19 U/L (15-37) 03/21/19 08:10 ALT 23 U/L (13-61) 03/21/19 08:10 Alkaline Phosphatase 59 U/L (45-117) 03/21/19 08:10 Total Protein 6.5 g/dl (6.4-8.2) 03/21/19 08:10 Albumin 3.6 g/dl (3.4-5.0) 03/21/19 08:10 RPR Titer Nonreactive (NONREACTIVE) 03/21/19 08:10 Discussed alcohol use and risks for relapse. Patient encourage to continue cessation of illicit drugs. Discussed nicotine use and encouraged continued cessation. Patient agrees to NRT prescriptions. Patient requesting sleep aide and discussed w/ patient behavioral and dietary changes to promote sleep. Will provide a script for Melatonin. Patient has eczema and requesting cortisone cream.
--- NOTE | 2019-03-23 18:55 | DS ---
[facility] Detox Discharge Summary Admission Date: 03/20/19 Discharge Date: 03/23/19 - History Present History: Alcohol Dependence Additional Comments: patient admitted w/ alcohol withdrawal symptoms requesting detox. Pertinent Past History: Patient w/ co-occurring hx cannabis use disorder cocaine use. Patient w/ hx eczema and c/o insomnia. - Physical Exam Results Vital Signs: Vital Signs Temperature 97.7 F 03/23/19 17:01 Pulse Rate 75 03/23/19 17:01 Respiratory Rate 18 03/23/19 17:01 Blood Pressure 106/64 03/23/19 17:01 O2 Sat by Pulse Oximetry (%) Pertinent Admission Physical Exam Findings: Patient admitted to detox w/ alcohol withdrawal symptoms. Laboratory Last Values WBC 5.5 K/mm3 (4.0-10.0) 03/21/19 08:10 RBC 4.37 M/mm3 (4.00-5.60) 03/21/19 08:10 Hgb 12.3 GM/dL (11.7-16.9) 03/21/19 08:10 Hct 36.7 % (35.4-49) 03/21/19 08:10 MCV 84.0 fl (80-96) 03/21/19 08:10 MCH 28.1 pg (25.7-33.7) 03/21/19 08:10 MCHC 33.5 g/dl (32.0-35.9) 03/21/19 08:10 RDW 13.6 % (11.9-15.9) 03/21/19 08:10 Plt Count 250 K/MM3 (134-434) 03/21/19 08:10 MPV 8.3 fl (7.5-11.1) 03/21/19 08:10 Sodium 141 mmol/L (136-145) 03/21/19 08:10 Potassium 4.0 mmol/L (3.5-5.1) 03/21/19 08:10 Chloride 105 mmol/L (98-107) 03/21/19 08:10 Carbon Dioxide 29 mmol/L (21-32) 03/21/19 08:10 Anion Gap 7 MMOL/L (8-16) L 03/21/19 08:10 BUN 11.1 mg/dL (7-18) 03/21/19 08:10 Creatinine 0.9 mg/dL (0.55-1.3) 03/21/19 08:10 Est GFR (CKD-EPI)AfAm 124.26 03/21/19 08:10 Est GFR (CKD-EPI)NonAf 107.21 03/21/19 08:10 Random Glucose 64 mg/dL (74-106) L 03/21/19 08:10 Calcium 8.4 mg/dL (8.5-10.1) L 03/21/19 08:10 Total Bilirubin 0.4 mg/dL (0.2-1) 03/21/19 08:10 AST 19 U/L (15-37) 03/21/19 08:10 ALT 23 U/L (13-61) 03/21/19 08:10 Alkaline Phosphatase 59 U/L (45-117) 03/21/19 08:10 Total Protein 6.5 g/dl (6.4-8.2) 03/21/19 08:10 Albumin 3.6 g/dl (3.4-5.0) 03/21/19 08:10 RPR Titer Nonreactive (NONREACTIVE) 03/21/19 08:10 labs reviewed. - Treatment Hospital Course: Detox Protocol Followed, Detoxed Safely, Responded well, Discharged Condition Good - Medication Discharge Medications: Ambulatory Orders Diphenhydramine [Benadryl Capsule -] 50 mg PO HS PRN 03/20/19 Hydrocortisone 1% Cream [Hytone 1% Cream -] 1 applic TP BID #1 tube 03/23/19 Melatonin 10 mg PO HS PRN #30 tab 03/23/19 Nicotine Polacrilex [Nicotine Gum] 2 mg BC Q2H PRN #90 gum 03/23/19 Nicotine [Nicotine Patch 21 mg/24 hr] 1 each TD DAILY #30 patch.td24 03/23/19 - Diagnosis (1) Insomnia Status: Chronic Qualifiers: Insomnia type: unspecified Qualified Code(s): G47.00 - Insomnia, unspecified (2) Alcohol dependence with uncomplicated withdrawal Status: Acute (3) Cocaine dependence Status: Chronic Qualifiers: Substance use status: uncomplicated Qualified Code(s): F14.20 - Cocaine dependence, uncomplicated (4) Eczema Status: Chronic Qualifiers: Eczema type: unspecified Qualified Code(s): L30.9 - Dermatitis, unspecified - AMA Did Patient Leave Against Medical Advice: No (Discharge medications provided.)
[2019-03-24] MEDS ORDERED: chlordiazePOXIDE HCL 10 MG CAPSULE PO ONE (05:00)
[2019-03-24] MEDS ORDERED: diazePAM 5 MG TABLET PO ONE (06:00)
== END 2019-03-23 18:42 | disposition home or self-care (01) | DRG 774 ==
LOC: YASAS 12:36 → Y3N 16:49
PROVIDERS: ADMIT Allergy & Immunology; ATTEND Allergy & Immunology
PROC: HZ2ZZZZ Detoxification Services for Substance Abuse Treatment (ICD-10-PCS; principal; 2019-03-20)
DX: F10.230 Alcohol dependence with withdrawal, uncomplicated (principal); F14.20 Cocaine dependence, uncomplicated; F17.210 Nicotine dependence, cigarettes, uncomplicated; F19.24 Other psychoactive substance dependence with psychoactive substance-induced mood disorder; F19.282 Other psychoactive substance dependence with psychoactive substance-induced sleep disorder; F99 Mental disorder, not otherwise specified; G47.00 Insomnia, unspecified; L30.9 Dermatitis, unspecified; Z56.0 Unemployment, unspecified; Z59.0 Homelessness
CPT/HCPCS: 36415; 80053; 85027; 86593; 93005; 93010

== ENCOUNTER 2019-12-14 11:53 | Inpatient (IN) | payer OTHER ==
[2019-12-14 12:09] VITALS: BMI 28.7
--- NOTE | 2019-12-14 12:17 | PDOC ---
History of Present Illness - General Chief Complaint: Chest Pain Stated Complaint: Chest Pain - History of Present Illness Initial Comments: 12/14/19 12:27 39 year old man with a history of alcohol, cocaine and K2 dependence who presents from [facility] with nonradiating, pressure like 7/10 chest pain that started last night. The patient reports that pain initally at a 10/10, has persisted but subsided. The patient reports that he has had this pain on and off for hte past 6 months that occurs when walking and worse with walking uphill, resolved with sleeping, however this time his pain has persisted more than past episodes. He reports some shortness of breath on past episodes but not currently and he endorses some nausea. He has no other complaints. He last used K2 and cocaine two days ago He normally drinks 10 cans of 24oz beer, last drank was last night. ROS GENERAL/CONSTITUTIONAL: No fever or chills. No weakness. HEAD, EYES, EARS, NOSE AND THROAT: No change in vision. No ear pain or discharge. No sore throat. CARDIOVASCULAR: + chest pain or shortness of breath RESPIRATORY: No cough, wheezing, or hemoptysis. GASTROINTESTINAL: No nausea, vomiting, diarrhea or constipation. GENITOURINARY: No dysuria, frequency, or change in urination. MUSCULOSKELETAL: No joint or muscle swelling or pain. No neck or back pain. SKIN: No rash NEUROLOGIC: No headache, vertigo, loss of consciousness, or change in strength/sensation. ENDOCRINE: No increased thirst. No abnormal weight change HEMATOLOGIC/LYMPHATIC: No anemia, easy bleeding, or history of blood clots. ALLERGIC/IMMUNOLOGIC: No hives or skin allergy. PE GENERAL: Awake, alert, and fully oriented, in no acute distress HEAD: No signs of trauma, normocephalic, atraumatic EYES: EOMI, sclera anicteric, conjunctiva clear ENT: oropharynx clear without exudates. Moist mucosa, very slight tongue tremor NECK: Normal ROM, supple LUNGS: No distress, speaks full sentences, clear to auscultation bilaterally HEART: Regular rate and rhythm, normal S1 and S2, no murmurs, rubs or gallops, peripheral pulses normal and equal bilaterally. CHEST: nonreproducible on chest wall palpation ABDOMEN: Soft, nontender. No guarding, no rebound. No masses EXTREMITIES : Normal inspection, Normal range of motion, no edema. No clubbing or cyanosis. NEUROLOGICAL: Cranial nerves II through XII grossly intact. Normal speech, normal gait, no focal sensorimotor deficits SKIN: Warm, Dry, normal turgor, no rashes or lesions noted Assessment and Plan 39 year old man with a history of alcohol, cocaine and K2 dependence who presents from [facility] with nonradiating, pressure like 7/10 chest pain that started last night. Consider unstable anging/ACS vs gerd vs msk - cbc, cmp, ekg, cxr, trop, bnp CIWA 1 EKG: nsr @ 59bpm, T wave inversions in II, aVF - more prominent inversion in aVF from prior as last ekg showed flattening, QTc 433 labs wnl cxr wnl Plan for admission Ruchi Dye PGY2 Emergency Medicine Past History - Medical History Allergies/Adverse Reactions: Allergies Allergy/AdvReac Type Severity Reaction Status Date / Time acetaminophen [From Tylenol] Allergy Verified 12/15/19 14:45 chlordiazepoxide Allergy Verified 12/15/19 14:45 [From Librium] Home Medications: Ambulatory Orders NK [No Known Home Medication] 12/15/19 Anemia: No Asthma: No Cancer: No Cardiac Disorders: No CVA: No COPD: No CHF: No Diabetes: No GI Disorders: No Disorders: No HTN: No Hypercholesterolemia: No Kidney Stones: No Liver Disease: No Seizures: No Thyroid Disease: No - Surgical History Abdominal Surgery: No Appendectomy: No Cardiac Surgery: No Cholecystectomy: No Lung Surgery: No Neurologic Surgery: No Orthopedic Surgery: No - Reproductive History Testicular Surgery: No - Psycho-Social/Smoking History Smoking History: Current every day smoker Have you smoked in the past 12 months: Yes Number of Cigarettes Smoked Daily: 3 Information on smoking cessation initiated: Yes 'Breaking Loose' booklet given: 04/05/19 - Substance Abuse Hx (Audit-C & DAST Scrn) How often the patient has a drink containing alcohol: 4 0r more times/wk Number of drinks the patient has on a typical day: 7 to 9 How often the patient has six or more drinks on one occasion: Daily or almost daily Score: In Men: 4 or > Positive; In Women: 3 or > Positive: 11 Screen Result (Pos requires Nsg. Audit-10AR): Positive In the last yr the pt used illegal drug/Rx for NonMed reason: No Score: Yes response is considered Positive: 0 Screen Result (Positive result requires Nsg. DAST-10): Negative *Physical Exam - Vital Signs Last Vital Signs Temp Pulse Resp BP Pulse Ox 97.6 F 55 L 18 111/66 100 12/14/19 12:06 12/14/19 12:06 12/14/19 12:06 12/14/19 12:06 12/14/19 12:06 ED Treatment Course - LABORATORY CBC & Chemistry Diagram: 12/14/19 12:30 12/14/19 12:17 Discharge - Discharge Information Problems reviewed: Yes Clinical Impression/Diagnosis: Chest pain Qualifiers: Chest pain type: unspecified Qualified Code(s): R07.9 - Chest pain, unspecified Condition: Stable Disposition: HOME - Follow up/Referral - Patient Discharge Instructions - Post Discharge Activity
--- NOTE | 2019-12-14 12:26 | EKG ---
Test Reason : Blood Pressure : / mmHG Vent. Rate : 059 BPM Atrial Rate : 059 BPM P-R Int : 144 ms QRS Dur : 078 ms QT Int : 438 ms P-R-T Axes : 027 022 -20 degrees QTc Int : 433 ms SINUS BRADYCARDIA T WAVE ABNORMALITY, CONSIDER INFERIOR ISCHEMIA ABNORMAL ECG WHEN COMPARED WITH ECG OF 20-MAR-2019 17:12, NO SIGNIFICANT CHANGE WAS FOUND Confirmed by DARRIN AGUIRRE MD ([id number]) on 12/14/2019 12:25:42 PM Referred By: Confirmed By:DARRIN AGUIRRE MD
[2019-12-14 13:06] LABS: BASO % 0.8 % (0-2.0); EOS % 9.4 % (0-4.5); HEMATOCRIT 39.6 % (35.4-49); HEMOGLOBIN 12.7 GM/dL (11.7-16.9); MCH 27.3 pg (25.7-33.7); MCHC 32.1 g/dl (32.0-35.9); MEAN CELL VOLUME 84.8 fl (80-96); MEAN PLT VOLUME 7.9 fl (7.5-11.1); MONO % 14.2 % (3.8-10.2); NEUT % 48.6 % (42.8-82.8); PLATELET COUNT 215 K/MM3 (134-434); RBC 4.66 M/mm3 (4.00-5.60); RDW 13.4 % (11.9-15.9); WHITE BLOOD COUNT 5.1 K/mm3 (4.0-10.0)
[2019-12-14] MEDS ORDERED: LORazepam 2 MG/ML SDV VIAL ONE (13:11)
[2019-12-14 13:42] LABS: ALBUMIN 3.5 g/dl (3.4-5.0); ALK PHOS 55 U/L (45-117); ANION GAP 5 MMOL/L (8-16); BILIRUBIN,TOTAL 0.8 mg/dL (0.2-1); BLOOD UREA NITROGEN 12.2 mg/dL (7-18); CALCIUM 8.4 mg/dL (8.5-10.1); CHLORIDE 106 mmol/L (98-107); CO2 29 mmol/L (21-32); CREATININE 0.9 mg/dL (0.55-1.3); GLUCOSE,RANDOM 91 mg/dL (74-106); POTASSIUM 4.2 mmol/L (3.5-5.1); SGOT/AST 55 U/L (15-37); SGPT/ALT 39 U/L (13-61); SODIUM 140 mmol/L (136-145)
[2019-12-14 13:43] LABS: N-TERMINAL BNP 35.3 pg/ml (5-125)
[2019-12-14 15:30] LABS: CHOLESTEROL 144 mg/dL (50-200); HDL CHOLESTEROL 64 mg/dL (40-60); LDL CHOLESTEROL (ONLY SJRH) 64 mg/dL (5-100); TRIGLYCERIDES 67 mg/dL (0-150)
[2019-12-14 15:34] LABS: COCAINE, UR NEGATIVE ng/ml (CUTOFF=300); METHADONE, UR NEGATIVE ng/ml (CUTOFF=300); OPIATES, URI NEGATIVE ng/ml (CUTOFF=300); PHENCYCLIDINE,URINE NEGATIVE ng/ml (CUTOFF=25); URINE AMPHETAMINES NEGATIVE ng/ml (CUTOFF=500); URINE BARBITURATES NEGATIVE ng/ml (CUTOFF=200)
[2019-12-14 15:45] LABS: URINE BENZODIAZEPINES POSITIVE ng/ml (CUTOFF=200)
--- NOTE | 2019-12-14 16:28 | PDOC ---
Documentation entered by Virginia Sanchez SCRIBE, acting as scribe for Neal Canchola MD. Neal Canchola MD: This documentation has been prepared by the Laura churchill Xhesika, SCRIBE, under my direction and personally reviewed by me in its entirety. I confirm that the documentation accurately reflects all work, treatment, procedures, and medical decision making performed by me. Attending Attestation - Resident Resident Name: Ruchi Dye - ED Attending Attestation I have performed the following: I have examined & evaluated the patient, The case was reviewed & discussed with the resident, I agree w/resident's findings & plan, Exceptions are as noted - HPI HPI: 12/14/19 13:51 The patient is a 39y/o M with a PMH of alcohol, cocaine and K2 dependence who presents to the ED [facility] from [facility] with chest pain since last night. The patient reports that his pain initially was a 10/10, but is now 7/10, non radiating, associated with nausea, occurs when walking and worse with walking uphill. Pt notes he has had this pain in the past, but notes his episode was more persistent this time. Pt states he last used K2 and cocaine two days ago and last drink was last night. The patient denies shortness of breath, and dizziness. Denies fever, chills, cough, vomiting, and constipation. Denies dysuria, frequency, urgency and hematuria. Allergies: Chlordiazepoxide - Physicial Exam PE: 12/14/19 14:05 Vitals: Triage Vital signs reviewed General Appearance: no acute distress, well nourished well developed Chest Wall: Nontende Cardiac: Regular rate and rhythm, no murmurs, no rubs, no gallops, Lungs: Clear to auscultation bilateral, good air movement bilaterally, Abdomen: Soft, nondistended, normal bowel sounds, nontender to palpation Extremities: Full range of motion to all extremities, no cyanosis, clubbing, or edema Skin: Warm and dry, no rashes or lesions, no petechiae Psych: normal mood, normal affect - Medical Decision Making 12/14/19 16:28 39 years old past medical history of substance abuse presents with exertional chest pain EKG demonstrates normal sinus rhythm no ST elevations no T wave inversions Moderately suspicisouns story, will observe for further management. Full dose asa given Heart Score/ECG Review - History History: Moderately suspicious - Electrocardiogram EKG: Normal - Age Age: </= 45 - Risk Factors Risk Factors Heart Score: Yes Smoking History, Yes Positive family hx of cardiac disease Based on the list above the patient has:: 1-2 risk factors - Troponin Troponin: </= normal limit - Score Heart Score - Total: 2 Discharge - Discharge Information Problems reviewed: Yes Clinical Impression/Diagnosis: Chest pain Qualifiers: Chest pain type: unspecified Qualified Code(s): R07.9 - Chest pain, unspecified - Follow up/Referral - Patient Discharge Instructions - Post Discharge Activity
--- NOTE | 2019-12-14 16:39 | HP ---
CHIEF COMPLAINT: PCP: HISTORY OF PRESENT ILLNESS: 39 AA male h/o Etoh/cocaine/K2 dependence who presents from [facility] with non- radiating, pressure like 7/10 chest pain that started last night. Initially had 7/10 substernal CP on exertion then he endorses it escalated to 10/10 pain. VSS in ED, sent from [facility], last drink last night had 24oz beer. In ED EKG unremarkable for ACS, trops negx1. Resting comfortably after Ativan given for withdrawal. ER course was notable for: (1) Ativan given (2) Trops neg x1 (3) EKG unremarkable for ACS Recent Travel: denies PAST MEDICAL HISTORY: as above PAST SURGICAL HISTORY: denies Social History: Etoh/marijuana/K2/cocaine Allergies chlordiazepoxide [From Librium] Allergy (Verified 12/14/19 12:19) HOME MEDICATIONS: PHYSICAL EXAMINATION Vital Signs - 24 hr 12/14/19 12:06 Temperature 97.6 F Pulse Rate 55 L Respiratory 18 Rate Blood Pressure 111/66 O2 Sat by Pulse 100 Oximetry (%) GA comfortable, drowsy, AAOx3 HEENT NC/AT, EOMI, neck supple, dry MM Chest CTAB, no crackles CVS S1, S2+< RRR Abd SOft, NT, ND Ext No LE edema Laboratory Results - last 24 hr 12/14/19 12/14/19 12/14/19 12:17 12:30 14:37 WBC 5.1 RBC 4.66 Hgb 12.7 Hct 39.6 MCV 84.8 MCH 27.3 MCHC 32.1 RDW 13.4 Plt Count 215 MPV 7.9 Absolute Neuts (auto) 2.5 Neutrophils % 48.6 Lymphocytes % 27.0 Monocytes % 14.2 H Eosinophils % 9.4 H Basophils % 0.8 Nucleated RBC % 0 PT with INR INR PTT (Actin FS) Sodium 140 Potassium 4.2 Chloride 106 Carbon Dioxide 29 Anion Gap 5 L BUN 12.2 Creatinine 0.9 Est GFR (CKD-EPI)AfAm 123.39 Est GFR (CKD-EPI)NonAf 106.46 Random Glucose 91 Hemoglobin A1c % 5.6 Calcium 8.4 L Total Bilirubin 0.8 AST 55 H ALT 39 Alkaline Phosphatase 55 Troponin I < 0.02 B-Natriuretic Peptide 35.3 Total Protein 7.0 Albumin 3.5 Triglycerides 67 Cholesterol 144 Total LDL Cholesterol 64 HDL Cholesterol 64 H TSH 1.02 Opiates Screen Methadone Screen Barbiturate Screen Phencyclidine Screen Ur Amphetamines Screen MDMA (Ecstasy) Screen Benzodiazepines Screen Cocaine Screen U Marijuana (THC) Screen 12/14/19 12/14/19 14:53 14:53 WBC RBC Hgb Hct MCV MCH MCHC RDW Plt Count MPV Absolute Neuts (auto) Neutrophils % Lymphocytes % Monocytes % Eosinophils % Basophils % Nucleated RBC % PT with INR Cancelled INR Cancelled PTT (Actin FS) Cancelled Sodium Potassium Chloride Carbon Dioxide Anion Gap BUN Creatinine Est GFR (CKD-EPI)AfAm Est GFR (CKD-EPI)NonAf Random Glucose Hemoglobin A1c % Calcium Total Bilirubin AST ALT Alkaline Phosphatase Troponin I B-Natriuretic Peptide Total Protein Albumin Triglycerides Cholesterol Total LDL Cholesterol HDL Cholesterol TSH Opiates Screen Negative Methadone Screen Negative Barbiturate Screen Negative Phencyclidine Screen Negative Ur Amphetamines Screen Negative MDMA (Ecstasy) Screen Negative Benzodiazepines Screen Positive A* Cocaine Screen Negative U Marijuana (THC) Screen Positive A* Current Medications Generic Name Dose Route Start Last Admin Trade Name Freq PRN Reason Stop Dose Admin Folic Acid 1 mg 12/14/19 20:30 Folic Acid - PO DAILY FCO Lorazepam 2 mg 12/14/19 20:20 Ativan - PO Q8H PRN WITHDRAWAL(CONT SUBST) Multivitamins/Minerals/Vitamin C 1 tab 12/14/19 20:30 Tab-A-Vit - PO DAILY FCO Pantoprazole Sodium 40 mg 12/14/19 20:30 Protonix - PO DAILY FCO Thiamine HCl 100 mg 12/14/19 20:30 Vitamin B1 - PO DAILY FCO ASSESSMENT/PLAN: 39 M Exertional CP PSA Etoh intoxication and withdrawal r/o ACS Plan: Obtain trops x2, with EKG will need stress testing but first must be cleared from Etoh/cocaine thiamine/FA/MV, Ativan PRN for CIWA >8 A1c/lipids/TSH Cardiology evaluation Visit type - Emergency Visit Emergency Visit: Yes ED Registration Date: 12/14/19 Care time: The patient presented to the Emergency Department on the above date and was hospitalized for further evaluation of their emergent condition. - New Patient This patient is new to me today: Yes Date on this admission: 12/14/19 - Critical Care Critical Care patient: No
[2019-12-14] MEDS ORDERED: ASPIRIN 325 MG ENTERIC COATED TABLET (FP) PO ONE (18:38)
[2019-12-14] MEDS ORDERED: LORazepam 0.5 MG TABLET PO PRN (20:20)
[2019-12-14] MEDS ORDERED: THIAMINE HCL 100 MG TABLET (FP) ONE (21:58)
[2019-12-14] MEDS ORDERED: MULTIVITAMINS (DAILY MVI) TABLET (FP) ONE (21:58)
[2019-12-14] MEDS ORDERED: PANTOPRAZOLE 40 MG TABLET ONE (21:58)
[2019-12-14] MEDS ORDERED: FOLIC ACID 1 MG TABLET (FP) ONE (21:59)
[2019-12-14] MEDS: MULTIVITAMINS (DAILY MVI) TABLET (FP) PO SCH (22:02)
[2019-12-14] MEDS: FOLIC ACID 1 MG TABLET (FP) PO SCH (22:02)
[2019-12-14] MEDS: PANTOPRAZOLE 40 MG TABLET PO SCH (22:02)
[2019-12-14] MEDS: THIAMINE HCL 100 MG TABLET (FP) PO SCH (22:02)
[2019-12-15] MEDS ORDERED: PANTOPRAZOLE 40 MG TABLET ONE (10:12)
[2019-12-15] MEDS ORDERED: FOLIC ACID 1 MG TABLET (FP) ONE (10:12)
[2019-12-15] MEDS ORDERED: MULTIVITAMINS (DAILY MVI) TABLET (FP) ONE (10:12)
[2019-12-15] MEDS ORDERED: THIAMINE HCL 100 MG TABLET (FP) ONE (10:12)
--- NOTE | 2019-12-15 10:13 | EKG ---
Test Reason : Blood Pressure : / mmHG Vent. Rate : 046 BPM Atrial Rate : 046 BPM P-R Int : 146 ms QRS Dur : 080 ms QT Int : 476 ms P-R-T Axes : 071 022 -14 degrees QTc Int : 416 ms SINUS BRADYCARDIA OTHERWISE NORMAL ECG WHEN COMPARED WITH ECG OF 14-DEC-2019 12:09, NO SIGNIFICANT CHANGE WAS FOUND Confirmed by Herbie Hernandez MD ([id number]) on 12/15/2019 10:13:06 AM Referred By: Confirmed By:Herbie Hernandez MD
[2019-12-15] MEDS: PANTOPRAZOLE 40 MG TABLET PO SCH (10:16)
[2019-12-15] MEDS: FOLIC ACID 1 MG TABLET (FP) PO SCH (10:16)
[2019-12-15] MEDS: MULTIVITAMINS (DAILY MVI) TABLET (FP) PO SCH (10:16)
[2019-12-15] MEDS: THIAMINE HCL 100 MG TABLET (FP) PO SCH (10:16)
[2019-12-15] MEDS ORDERED: LORazepam 0.5 MG TABLET ONE (10:20)
--- NOTE | 2019-12-15 10:29 | CON.CARD ---
Consult Consult Specialty:: Cardiology Referred by:: Hospitalist Reason for Consultation:: Cardiac evaluation - History of Present Illness Chief Complaint: Chest pain History of Present Illness: Patient is a 39 year old male with history of polysubstance abuse including ETOH, Cocaine and K2 dependence who came from [facility] with chest pain mid sternum radiating to right shoulder. He is in the ER currently and appears comfortable. He denies shortness of breath or palpitations. He denies fever or chills. He denies nausea, vomiting, diarrhea or abdominal pain. He denies headache or lightheadedness. He says he drank 24 hours ago and used Cocaine and K2 2 days ago. - History Source History Provided By: Patient, Medical Record Limitations to Obtaining History: No Limitations - Past Surgical History Past Surgical History: Yes: None - Alcohol/Substance Use Hx Alcohol Use: Yes History of Substance Use: reports: Cocaine - Smoking History Smoking history: Current every day smoker Have you smoked in the past 12 months: Yes Aproximately how many cigarettes per day: 3 Home Medications - Allergies Allergies/Adverse Reactions: Allergies Allergy/AdvReac Type Severity Reaction Status Date / Time chlordiazepoxide Allergy Verified 12/14/19 12:19 [From Librium] Review of Systems - Review of Systems Constitutional: denies: Chills, Fever Cardiovascular: reports: Chest Pain. denies: Palpitations, Shortness of Breath Respiratory: denies: Cough, Hemoptysis, Orthopnea, PND, SOB, SOB on Exertion, Wheezing Gastrointestinal: denies: Abdominal Pain, Constipation, Diarrhea, Melena, Nausea, Rectal Bleeding, Vomiting Musculoskeletal: denies: Back Pain, Joint Pain Neurological: denies: Dizziness, Headache, Seizure, Syncope Vital Signs: Vital Signs Temperature 97.8 F 12/15/19 03:10 Pulse Rate 65 12/15/19 03:10 Respiratory Rate 14 12/15/19 03:10 Blood Pressure 115/68 12/15/19 03:10 O2 Sat by Pulse Oximetry (%) 99 12/15/19 03:10 Eyes: Yes: PERRL HENT: Yes: Atraumatic Neck: Yes: Supple Respiratory: Yes: CTA Bilaterally Gastrointestinal: Yes: Normal Bowel Sounds, Soft. No: Tenderness Cardiovascular: Yes: Regular Rate and Rhythm JVD: No PMI: Non-Displaced Heart Sounds: Yes: S1, S2 Edema: No - Other Data Labs, Other Data: CBC, BMP 12/14/19 12:30 12/14/19 12:17 INR, PTT INR Cancelled 12/14/19 14:53 Troponin, BNP 12/14/19 12/15/19 12:17 03:38 Troponin I < 0.02 < 0.02 B-Natriuretic Peptide 35.3 Sinus rhythm Imaging - Results Chest X-ray: Report Reviewed (Normal finding) EKG: Report Reviewed Problem List - Problems (1) Chest pain Code(s): R07.9 - CHEST PAIN, UNSPECIFIED Qualifiers: Chest pain type: unspecified Qualified Code(s): R07.9 - Chest pain, unspecified (2) Alcohol dependence with uncomplicated withdrawal Code(s): F10.230 - ALCOHOL DEPENDENCE WITH WITHDRAWAL, UNCOMPLICATED (3) Cocaine dependence Code(s): F14.20 - COCAINE DEPENDENCE, UNCOMPLICATED Qualifiers: Substance use status: uncomplicated Qualified Code(s): F14.20 - Cocaine dependence, uncomplicated Assessment/Plan 1. Poly-substance abuse including Cocaine 2. Chest pain due to above with negative troponins PLAN: 1. Trend troponin so far negative 2. Avoid beta ranjit 3. Detoxification for both ETOH and drug abuse 4. Echocardiography to assess LV/RV and valvular function León Dowell MD
--- NOTE | 2019-12-15 10:33 | ECHO ---
Name: ABEL BARTOLOME Exam:Adult Echocardiogram Study Date: 12/15/2019 08:00 AM Age: 39 yrs Reason For Study: evaluate ef MMode/2D Measurements & Calculations IVSd: 1.1 cm Ao root diam: 2.5 cm LVIDd: 4.2 cm LA dimension: 2.9 cm LVIDs: 3.1 cm LVPWd: 1.3 cm LVPWs: 1.5 cm EDV(Teich): 77.9 ml ESV(Teich): 36.5 ml LVOT diam: 1.9 cm TAPSE: 1.9 cm RV S Leon: 14.7 cm/sec Doppler Measurements & Calculations MV E max leon: 90.3 cm/sec Ao V2 max: 128.7 cm/sec MV A max leon: 50.8 cm/sec Ao max P.7 mmHg MV E/A: 1.8 CHECO(V,D): 1.8 cm2 MV dec time: 0.17 sec LV V1 max P.7 mmHg TR max leon: 237.5 cm/sec LV V1 max: 81.4 cm/sec TR max P.6 mmHg PA V2 max: 88.2 cm/sec PI end-d leon: 50.2 cm/sec PA max P.1 mmHg Med Peak E' Leon: 7.5 cm/sec Med E/e': 12.1 Lat Peak E' Leon: 11.5 cm/sec Lat E/e': 7.8 Left Ventricle The left ventricular size, thickness and function are normal. Ejection Fraction = 60%. E/A reversal c onsistent with but not diagnostic of poor LV compliance. The left ventricular wall motion is normal. Right Ventricle The right ventricle is normal in size and function. Atria Normal left and right atrial size and function. Mitral Valve The mitral valve is normal in structure and function. Tricuspid Valve The tricuspid valve is normal in structure and function. There is Trace to mild tricuspid regurgitati on. Right ventricular systolic pressure is 27 mmhg. Assuming the RA pressure is 5 mmHg. Aortic Valve The aortic valve is normal in structure and function. Pulmonic Valve The pulmonic valve is not well seen, but is grossly normal. Great Vessels The aortic root is normal size. Pericardium/Pleura There is no pericardial effusion. There is no pleural effusion. Interpretation Summary This was essentially a normal study. The left ventricular size, thickness and function are normal Ejection Fraction = 60%. MD Herbie Hernandez 12/15/2019 10:33 AM
[2019-12-15 11:29] VITALS: BP 106/54; PULSE 60; TEMP 98.3
--- NOTE | 2019-12-15 11:29 | DS ---
Physical Exam: SUBJECTIVE: Patient seen and examined at bedside. OBJECTIVE: Vital Signs Period Temp Pulse Resp BP Sys/Roth Pulse Ox Last 24 Hr 97.6 F-97.8 F 55-81 14-18 111-118/66-74 97-100 PHYSICAL EXAM GENERAL: The patient is awake, alert, and fully oriented, in no acute distress. HEAD: Normal with no signs of trauma. EYES: extraocular movements intact, sclera anicteric, conjunctiva clear. ENT: nares patent, oropharynx clear without exudates, moist mucous membranes. NECK: Trachea midline, full range of motion, supple. LUNGS: Breath sounds equal, clear to auscultation bilaterally, no wheezes, no crackles, no accessory muscle use. HEART: Regular rate and rhythm, S1, S2 without murmur, rub or gallop. ABDOMEN: Soft, very mild tenderness LLQ, nondistended, normoactive bowel sounds, no guarding, no rebound, no hepatosplenomegaly, no masses. EXTREMITIES: 2+ pulses, warm, well-perfused, no edema. NEUROLOGICAL: Cranial nerves II through XII grossly intact. Normal speech, gait not observed. PSYCH: Normal mood, normal affect. SKIN: Warm, dry, normal turgor, no rashes or lesions noted. LABS Laboratory Results - last 24 hr 12/14/19 12/14/19 12/14/19 12:17 12:30 14:37 WBC 5.1 RBC 4.66 Hgb 12.7 Hct 39.6 MCV 84.8 MCH 27.3 MCHC 32.1 RDW 13.4 Plt Count 215 MPV 7.9 Absolute Neuts (auto) 2.5 Neutrophils % 48.6 Lymphocytes % 27.0 Monocytes % 14.2 H Eosinophils % 9.4 H Basophils % 0.8 Nucleated RBC % 0 PT with INR INR PTT (Actin FS) Sodium 140 Potassium 4.2 Chloride 106 Carbon Dioxide 29 Anion Gap 5 L BUN 12.2 Creatinine 0.9 Est GFR (CKD-EPI)AfAm 123.39 Est GFR (CKD-EPI)NonAf 106.46 Random Glucose 91 Hemoglobin A1c % 5.6 Calcium 8.4 L Total Bilirubin 0.8 AST 55 H ALT 39 Alkaline Phosphatase 55 Troponin I < 0.02 B-Natriuretic Peptide 35.3 Total Protein 7.0 Albumin 3.5 Triglycerides 67 Cholesterol 144 Total LDL Cholesterol 64 HDL Cholesterol 64 H TSH 1.02 Opiates Screen Methadone Screen Barbiturate Screen Phencyclidine Screen Ur Amphetamines Screen MDMA (Ecstasy) Screen Benzodiazepines Screen Cocaine Screen U Marijuana (THC) Screen 12/14/19 12/14/19 12/15/19 14:53 14:53 03:38 WBC RBC Hgb Hct MCV MCH MCHC RDW Plt Count MPV Absolute Neuts (auto) Neutrophils % Lymphocytes % Monocytes % Eosinophils % Basophils % Nucleated RBC % PT with INR Cancelled INR Cancelled PTT (Actin FS) Cancelled Sodium Potassium Chloride Carbon Dioxide Anion Gap BUN Creatinine Est GFR (CKD-EPI)AfAm Est GFR (CKD-EPI)NonAf Random Glucose Hemoglobin A1c % Calcium Total Bilirubin AST ALT Alkaline Phosphatase Troponin I < 0.02 B-Natriuretic Peptide Total Protein Albumin Triglycerides Cholesterol Total LDL Cholesterol HDL Cholesterol TSH Opiates Screen Negative Methadone Screen Negative Barbiturate Screen Negative Phencyclidine Screen Negative Ur Amphetamines Screen Negative MDMA (Ecstasy) Screen Negative Benzodiazepines Screen Positive A* Cocaine Screen Negative U Marijuana (THC) Screen Positive A* HOSPITAL COURSE: Date of Admission:12/14/19 Date of Discharge: 12/15/19 Mr. Andrade is a 39 y/o M with no medical problems and a history of substance abuse (most notable for etoh - drinks 20 beers daily, but occasionally smokes cocaine and K2). He lives in a half-way for the last several months since being asked by his not to come home until he's sober. He went to detox for EtOH, complained of chest pain in the ED, and he was sent to [facility] ED. He had a mildly abnormal EKG with inferior T wave inversions. Troponin was negative x 2. Chest pain resolved. He had an echo, which was normal. He was seen by cardiology. Pt is stable to return to [facility]. Minutes to complete discharge: 30 Discharge Summary Problems reviewed: Yes Reason For Visit: UNSTABLE ANGINA PECTORIS Current Active Problems Chest pain (Acute) Condition: Stable - Instructions Diet, Activity, Other Instructions: You were in the hospital because of chest pain. You should follow up with your regular doctor. If you don't have a doctor, you can come to the resident's clinic. You are not being given any new medications. If your symptoms get worse, call your doctor or return to the emergency department. Referrals: Leon Fletcher DO [Staff Physician] - Disposition: TRANSFER ACUTE CARE/OTHER HOSP This patient is new to me today: Yes Date on this admission: 12/15/19 Emergency Visit: Yes ED Registration Date: 12/14/19 Care time: The patient presented to the Emergency Department on the above date and was hospitalized for further evaluation of their emergent condition. Critical Care patient: No - Discharge Referral Referred to [facility] No ATTENDING PHYSICIAN STATEMENT I saw and evaluated the patient. I reviewed the resident's note and discussed the case with the resident. I agree with the resident's findings and plan as documented. SUBJECTIVE: OBJECTIVE: ASSESSMENT AND PLAN:
--- NOTE | 2019-12-18 09:18 | PN ---
Teaching Attending Note Name of Resident: Celestine Taylor ATTENDING PHYSICIAN STATEMENT I saw and evaluated the patient. I reviewed the resident's note and discussed the case with the resident. I agree with the resident's findings and plan as documented. SUBJECTIVE: Patient seen and examined at bedside, feels well, denies CP, workup unremarkable for ACS, stable for DC back to [facility]. OBJECTIVE: GA comfortable, AAOx3 HEENT NC/AT, EOMI, neck supple, dry MM Chest CTAB, no crackles CVS S1, S2+< RRR Abd SOft, NT, ND Ext No LE edema Vital Signs (72 hours) 12/15/19 11:27 Temperature 98.3 F Pulse Rate [ 60 Right Radial] Respiratory 18 Rate Blood Pressure 106/54 L [Left Arm] O2 Sat by Pulse 97 Oximetry (%) Laboratory Tests 12/14/19 12/14/19 12/14/19 12:17 12:30 14:37 WBC 5.1 RBC 4.66 Hgb 12.7 Hct 39.6 MCV 84.8 MCH 27.3 MCHC 32.1 RDW 13.4 Plt Count 215 MPV 7.9 Absolute Neuts (auto) 2.5 Neutrophils % 48.6 Lymphocytes % 27.0 Monocytes % 14.2 H Eosinophils % 9.4 H Basophils % 0.8 Nucleated RBC % 0 PT with INR INR PTT (Actin FS) Sodium 140 Potassium 4.2 Chloride 106 Carbon Dioxide 29 Anion Gap 5 L BUN 12.2 Creatinine 0.9 Est GFR (CKD-EPI)AfAm 123.39 Est GFR (CKD-EPI)NonAf 106.46 Random Glucose 91 Hemoglobin A1c % 5.6 Calcium 8.4 L Total Bilirubin 0.8 AST 55 H ALT 39 Alkaline Phosphatase 55 Troponin I < 0.02 B-Natriuretic Peptide 35.3 Total Protein 7.0 Albumin 3.5 Triglycerides 67 Cholesterol 144 Total LDL Cholesterol 64 HDL Cholesterol 64 H TSH 1.02 Opiates Screen Methadone Screen Barbiturate Screen Phencyclidine Screen Ur Amphetamines Screen MDMA (Ecstasy) Screen Benzodiazepines Screen Cocaine Screen U Marijuana (THC) Screen COVID-19 ([facility]) 12/14/19 12/14/19 12/14/19 14:53 14:53 14:53 WBC RBC Hgb Hct MCV MCH MCHC RDW Plt Count MPV Absolute Neuts (auto) Neutrophils % Lymphocytes % Monocytes % Eosinophils % Basophils % Nucleated RBC % PT with INR Cancelled INR Cancelled PTT (Actin FS) Cancelled Sodium Potassium Chloride Carbon Dioxide Anion Gap BUN Creatinine Est GFR (CKD-EPI)AfAm Est GFR (CKD-EPI)NonAf Random Glucose Hemoglobin A1c % Calcium Total Bilirubin AST ALT Alkaline Phosphatase Troponin I B-Natriuretic Peptide Total Protein Albumin Triglycerides Cholesterol Total LDL Cholesterol HDL Cholesterol TSH Opiates Screen Negative Methadone Screen Negative Barbiturate Screen Negative Phencyclidine Screen Negative Ur Amphetamines Screen Negative MDMA (Ecstasy) Screen Negative Benzodiazepines Screen Positive A* Cocaine Screen Negative U Marijuana (THC) Screen Positive A* COVID-19 ([facility]) Not detected 12/15/19 03:38 WBC RBC Hgb Hct MCV MCH MCHC RDW Plt Count MPV Absolute Neuts (auto) Neutrophils % Lymphocytes % Monocytes % Eosinophils % Basophils % Nucleated RBC % PT with INR INR PTT (Actin FS) Sodium Potassium Chloride Carbon Dioxide Anion Gap BUN Creatinine Est GFR (CKD-EPI)AfAm Est GFR (CKD-EPI)NonAf Random Glucose Hemoglobin A1c % Calcium Total Bilirubin AST ALT Alkaline Phosphatase Troponin I < 0.02 B-Natriuretic Peptide Total Protein Albumin Triglycerides Cholesterol Total LDL Cholesterol HDL Cholesterol TSH Opiates Screen Methadone Screen Barbiturate Screen Phencyclidine Screen Ur Amphetamines Screen MDMA (Ecstasy) Screen Benzodiazepines Screen Cocaine Screen U Marijuana (THC) Screen COVID-19 ([facility]) Home Medications Medication Instructions Recorded NK [No Known Home Medication] 12/15/19 ASSESSMENT AND PLAN: 39 M Atyplical CP (ACS ruled out) PSA Etoh intoxication and withdrawal Plan: Workup negative for ACS, strongly counseled patient on refraining from further drug use Echo normal study, avoid BB per Cardio recs Stable for DC to [facility] to complete detox Follow up with PMD upon DC from [facility]
== END 2019-12-15 13:30 | disposition short-term general hospital (02) | DRG 774 ==
LOC: JER 11:53 → JERBED 12:35
DX: F14.20 Cocaine dependence, uncomplicated (principal); R07.89 Other chest pain; F17.210 Nicotine dependence, cigarettes, uncomplicated; F10.239 Alcohol dependence with withdrawal, unspecified; F19.20 Other psychoactive substance dependence, uncomplicated; R06.02 Shortness of breath
CPT/HCPCS: 36415; 71045-TC-FY; 80053; 80061; 80307; 83036; 83721; 83880; 84443; 84484; 85025; 93005; 93010; 93306-TC; 99285-25; U0003

== ENCOUNTER 2019-12-15 14:24 | Inpatient (IN) | payer OTHER ==
--- NOTE | 2019-12-15 14:37 | HP ---
CIWA Score Nausea/Vomitin-No Nausea/No Vomiting Muscle Tremors: 3 Anxiety: 1-Mildly Anxious Agitation: 0-Normal Activity Paroxysmal Sweats: 1-Minimal Palms Moist Orientation: 2-Disoriented Date<2 days Tacttile Disturbances: 0-None Auditory Disturbances: 0-None Visual Disturbances: 2-Mild Sensitivity Headache: 4-Moderately Severe CIWA-Ar Total Score: 13 - Admission Criteria OASAS Guidelines: Admission for Medically Managed Detox: Requires at least one of the followin. CIWA greater than 12 2. Seizures within the past 24 hours 3. Delirium tremens within the past 24 hours 4. Hallucinations within the past 24 hours 5. Acute intervention needed for co occurring medical disorder 6. Acute intervention needed for co occurring psychiatric disorder 7. Severe withdrawal that cannot be handled at a lower level of care (continued vomiting, continued diarrhea, abnormal vital signs) requiring intravenous medication and/or fluids 8. Admitting History and Physical - Admission Chief Complaint: Mr. Andrade is a 39 yo man who returns from [facility] for detox admission for alcohol use disorder. History of Present Illness: Mr. Andrade is a 39 yo man who returns from [facility] for detox admission for alcohol use disorder. He went to [facility] yesteday morning for chest pain. His workup including cardiac enzymes was negative for acute coronary syndrome. PMH: ? CAD, eczema PSH: none Psych: bipolar on no meds SOC: homeless on the streets Legal: none Substance use hx Alcohol: 5-10 cans of 25 ounce beers, last use 12/13, first use age 14 y. No seizures. Blackout 12/12. Admits to [id number] Crack: $10 one time per year, last use one week ago. First use age 29y Cannabis: dime bag, last use 2 days ago. First use age 14 y Nicotine: 2-3 cigs per day, first use age 14 y. Last use 12/11 Review of [facility] records Labs: Hg 12.7 Temp 98.3 /BP 106/54 WBC 5.1, BUN 12 glucose 91 HgA1c 5.6 Troponin negative AST/ALT: 55/39 chol 144 Tox screen: negative except for benzo, marijuana 12/14: Echo essentially normal History Source: Patient Limitations to Obtaining History: No Limitations - Past Surgical History Past Surgical History: Yes: None - Smoking History Smoking history: Current every day smoker Have you smoked in the past 12 months: Yes Aproximately how many cigarettes per day: 3 - Alcohol/Substance Use Hx Alcohol Use: Yes History of Substance Use: reports: Cocaine Admission ROS S - HPI Allergies/Adverse Reactions: Allergies Allergy/AdvReac Type Severity Reaction Status Date / Time acetaminophen [From Tylenol] Allergy Verified 12/15/19 14:45 chlordiazepoxide Allergy Verified 12/15/19 14:45 [From Librium] Exam Limitations: No Limitations - Ebola screening Have you traveled outside of the country in the last 21 days: No Have you been sick,other than usual withdrawal symptoms: No Do you have a fever: No - Review of Systems Constitutional: Loss of Appetite EENT: reports: Hearing Loss (right ear) Respiratory: reports: No Symptoms reported Cardiac: reports: No Symptoms Reported GI: reports: No Symptoms Reported : reports: No Symptoms Reported Musculoskeletal: reports: Back Pain Integumentary: reports: Dryness Neuro: reports: Headache Endocrine: reports: No Symptoms Reported Hematology: reports: No Symptoms Reported Psychiatric: reports: Anxious Patient History - Patient Medical History Hx Anemia: No Hx Asthma: No Hx Chronic Obstructive Pulmonary Disease (COPD): No Hx Cancer: No Hx Cardiac Disorders: No Hx Congestive Heart Failure: No Hx Hypertension: No Hx Hypercholesterolemia: No Hx Pacemaker: No HX Cerebrovascular Accident: No Hx Seizures: No Hx Diabetes: No Hx Gastrointestinal Disorders: No Hx Liver Disease: No Hx Genitourinary Disorders: No Hx Sexually Transmitted Disorders: No Hx Renal Disease (ESRD): No Hx Thyroid Disease: No Hx Human Immunodeficiency Virus (HIV): No Hx Hepatitis C: No Hx Depression: Yes Hx Suicide Attempt: No Hx Bipolar Disorder: Yes Hx Schizophrenia: No - Patient Surgical History Past Surgical History: No Hx Neurologic Surgery: No Hx Cataract Extraction: No Hx Cardiac Surgery: No Hx Lung Surgery: No Hx Breast Surgery: No Hx Breast Biopsy: No Hx Abdominal Surgery: No Hx Appendectomy: No Hx Cholecystectomy: No Hx Genitourinary Surgery: No Hx Section: No Hx Orthopedic Surgery: No Anesthesia Reaction: No - Smoking Cessation Smoking history: Current every day smoker Have you smoked in the past 12 months: Yes Aproximately how many cigarettes per day: 3 Hx Chewing Tobacco Use: No Initiated information on smoking cessation: Yes 'Breaking Loose' booklet given: 06/30/20 Admission Physical Exam BHS - Physical General Appearance: Yes: No Apparent Distress, Nourished, Appropriately Dressed HEENTM: Yes: EOMI, Hearing grossly Normal, Normocephalic, Normal Voice Respiratory: Yes: Lungs Clear, Normal Breath Sounds Neck: Yes: Within Normal Limits, Supple Breast: Yes: Breast Exam Deferred Cardiology: Yes: Regular Rhythm, Regular Rate, S1, S2 Abdominal: Yes: Flat, Soft (left lower quadrant, mild), Decreased BS, Tenderness Genitourinary: Yes: Other (deferred) Back: Yes: Normal Inspection Musculoskeletal: Yes: Gait Steady Extremities: Yes: Normal Inspection, Non-Tender Neurological: Yes: Alert, Normal Mood/Affect, Normal Response Integumentary: Yes: Normal Color, Dry, Warm - Diagnostic (1) Cannabis use disorder, mild, abuse Current Visit: Yes Status: Acute (2) Nicotine dependence Current Visit: Yes Status: Acute Qualifiers: Nicotine product type: cigarettes Substance use status: uncomplicated Qualified Code(s): F17.210 - Nicotine dependence, cigarettes, uncomplicated (3) Alcohol dependence with uncomplicated withdrawal Current Visit: Yes Status: Acute Comment: detox follow with rehab eductaed on MAT re: vivitrol benefits and risks harm reduction reviewed (4) Cocaine dependence Current Visit: Yes Status: Acute Qualifiers: Substance use status: uncomplicated Qualified Code(s): F14.20 - Cocaine dependence, uncomplicated Breathalyzer - Breathalyzer Breathalyzer: 0 Urine Drug Screen - Test Device Lot number: [id number] Expiration date: 02/14/21 - Control Is test valid?: Yes - Results Drug screen NEGATIVE: No Urine drug screen results: THC-Marijuana, TEMI-Cocaine, BZO-Benzodiazepines Inpatient Rehab Admission - Rehab Decision to Admit Inpatient rehab admission?: No
[2019-12-15] MEDS ORDERED: MENTHOL/PHENOL 1 EACH UD MM PRN (14:49)
[2019-12-15] MEDS ORDERED: BISMUTH SUBSALICYLATE 262 MG/15 ML BTL PO PRN (14:49)
[2019-12-15] MEDS ORDERED: IBUPROFEN 400 MG TABLET (FP) PO PRN (14:49)
[2019-12-15] MEDS ORDERED: LORazepam 1 MG TABLET PO PRN (14:49)
[2019-12-15] MEDS ORDERED: METHOCARBAMOL 500 MG TABLET PO PRN (14:49)
[2019-12-15] MEDS ORDERED: MAG HYDROX/AL HYDROX/SIMETH 30 ML UNIT-DOSE CUP PO PRN (14:49)
[2019-12-15] MEDS ORDERED: MAGNESIUM CITRATE 300 ML BOTTLE PO PRN (14:49)
[2019-12-15] MEDS ORDERED: ONDANSETRON *ODT* 4 MG TABLET SL PRN (14:49)
[2019-12-15] MEDS ORDERED: NICOTINE POLACRILEX 2 MG GUM BUC PRN (14:49)
[2019-12-15] MEDS ORDERED: MAGNESIUM HYDROX 2400MG/30ML ORAL SUSPENSION 30 ML CUP PO PRN (14:49)
[2019-12-15 15:13] VITALS: BMI 28.1
[2019-12-15] MEDS: NICOTINE 7 MG/24 HOURS TOPICAL PATCH TD SCH (15:29)
[2019-12-15] MEDS: LORazepam 2 MG TABLET PO SCH ×2 (18:17→22:10)
[2019-12-15] MEDS: hydrOXYzine PAMOATE 25 MG CAPSULE (FP) PO SCH ×2 (18:18→22:11)
[2019-12-15] MEDS: THIAMINE HCL 100 MG TABLET (FP) PO SCH (22:10)
[2019-12-15] MEDS: MELATONIN 5 MG TABLETS PO SCH (22:11)
[2019-12-16] MEDS: LORazepam 2 MG TABLET PO SCH ×4 (05:08→22:18)
[2019-12-16] MEDS: hydrOXYzine PAMOATE 25 MG CAPSULE (FP) PO SCH ×3 (05:08→14:52)
[2019-12-16] MEDS: NICOTINE 7 MG/24 HOURS TOPICAL PATCH TD SCH (10:49)
[2019-12-16] MEDS: PRENATAL VITAMINS W/ FOLIC ACID TABLET (FP) PO SCH (10:49)
--- NOTE | 2019-12-16 11:12 | PN ---
S CIWA - CIWA Score Nausea/Vomitin Muscle Tremors: 2 Anxiety: 2 Agitation: 2 Paroxysmal Sweats: No Perspiration Orientation: 0-Oriented Tacttile Disturbances: 1-Very Mild Itch/Numbness Auditory Disturbances: 0-None Visual Disturbances: 0-None Headache: 2-Mild CIWA-Ar Total Score: 11 S Progress Note (SOAP) Subjective: alert,irritable,anxious,interrupted sleep,tremor,pain in the back,no chest pain,no sob Objective: 12/16/19 11:09 Vital Signs Temperature 97.7 F 12/16/19 08:37 Pulse Rate 73 12/16/19 08:37 Respiratory Rate 20 12/16/19 08:37 Blood Pressure 124/77 12/16/19 08:37 O2 Sat by Pulse Oximetry (%) 97 12/16/19 05:39 patient had Covid 19 test done at [facility] on 12/14/2019 not detected Assessment: 12/16/19 11:11 withdrawal symptom Plan: continue detox ativan regimen
[2019-12-16] MEDS ORDERED: hydrOXYzine PAMOATE 25 MG CAPSULE (FP) PO PRN (14:48)
[2019-12-16] MEDS: THIAMINE HCL 100 MG TABLET (FP) PO SCH (22:16)
[2019-12-16] MEDS: MELATONIN 5 MG TABLETS PO SCH (22:17)
[2019-12-17] MEDS: LORazepam 1 MG TABLET PO SCH ×4 (06:11→22:22)
--- NOTE | 2019-12-17 09:16 | PN ---
S CIWA - CIWA Score Nausea/Vomitin-Mild Nausea/No Vomiting Muscle Tremors: 2 Anxiety: 2 Agitation: 2 Paroxysmal Sweats: No Perspiration Orientation: 0-Oriented Tacttile Disturbances: 1-Very Mild Itch/Numbness Auditory Disturbances: 0-None Visual Disturbances: 0-None Headache: 2-Mild CIWA-Ar Total Score: 10 BHS Progress Note (SOAP) Subjective: alert,irritable,anxious,interrupted sleep,tremor,pain in the body,nausea Objective: 12/17/19 09:15 Vital Signs Temperature 97.1 F L 12/17/19 08:40 Pulse Rate 83 12/17/19 08:40 Respiratory Rate 18 12/17/19 08:40 Blood Pressure 136/71 12/17/19 08:40 O2 Sat by Pulse Oximetry (%) 96 12/17/19 05:45 Assessment: 12/17/19 09:15 withdrawal symptom Plan: continue detox ativan regimen
[2019-12-17] MEDS: NICOTINE 7 MG/24 HOURS TOPICAL PATCH TD SCH (10:35)
[2019-12-17] MEDS: PRENATAL VITAMINS W/ FOLIC ACID TABLET (FP) PO SCH (10:35)
[2019-12-17] MEDS: MELATONIN 5 MG TABLETS PO SCH (22:22)
[2019-12-17] MEDS: THIAMINE HCL 100 MG TABLET (FP) PO SCH (22:22)
[2019-12-18] MEDS ORDERED: LORazepam 0.5 MG TABLET PO PRN
[2019-12-18] MEDS ORDERED: LORazepam 0.5 MG TABLET PO SCH (05:00)
[2019-12-18 09:06] VITALS: BP 128/74; PULSE 89; TEMP 97.5
--- NOTE | 2019-12-18 09:20 | PN ---
[facility] CIWA - CIWA Score Nausea/Vomitin-No Nausea/No Vomiting Muscle Tremors: None Anxiety: 1-Mildly Anxious Agitation: 0-Normal Activity Paroxysmal Sweats: No Perspiration Orientation: 0-Oriented Tacttile Disturbances: 0-None Auditory Disturbances: 0-None Visual Disturbances: 0-None Headache: 0-None Present CIWA-Ar Total Score: 1 S Progress Note (SOAP) Subjective: alert,no complaint Objective: 12/18/19 09:19 Vital Signs Temperature 97.5 F L 12/18/19 08:26 Pulse Rate 89 12/18/19 08:26 Respiratory Rate 18 12/18/19 08:26 Blood Pressure 128/74 12/18/19 08:26 O2 Sat by Pulse Oximetry (%) 100 12/18/19 06:12 Assessment: 12/18/19 09:19 no withdrawal symptom Plan: stable for discharge today,follow up with after care program as arrangement
--- NOTE | 2019-12-18 09:23 | DS ---
[facility] Detox Discharge Summary Admission Date: 12/15/19 Discharge Date: 12/18/19 - History Present History: Alcohol Dependence, Cannabis Dependence, Cocaine Dependence Additional Comments: alert,oriented x 3 ambulation on the unit lung clear on auscultation bilaterally abdomen soft,no distension,no pain no edema of the leg no withdrawal symptom stable for discharge follow up with after care program as arrangement ,counseling service no suicidal,no homicidal left the unit in stable condition declined rehab total time discharge spending 35 minutes Pertinent Past History: nicotine dependence - Physical Exam Results Vital Signs: Vital Signs Temperature 97.5 F L 12/18/19 08:26 Pulse Rate 89 12/18/19 08:26 Respiratory Rate 18 12/18/19 08:26 Blood Pressure 128/74 12/18/19 08:26 O2 Sat by Pulse Oximetry (%) 100 12/18/19 06:12 Pertinent Admission Physical Exam Findings: withdrawal signs and symptom Laboratory Last Values Syphilis Serology Non-reactive (NONREACTIVE) 12/17/19 08:30 covid 19 test at [facility] on 12/14/2019 not detected - Treatment Hospital Course: Detox Protocol Followed, Detoxed Safely, Responded well, Discharged Condition Good Patient has Accepted a Rehab Referral to: declined - Medication Discharge Medications: Ambulatory Orders NK [No Known Home Medication] 12/15/19 - Diagnosis (1) Alcohol dependence with uncomplicated withdrawal Current Visit: Yes Status: Acute (2) Cannabis use disorder, mild, abuse Current Visit: Yes Status: Acute (3) Cocaine dependence Current Visit: Yes Status: Acute Qualifiers: Substance use status: uncomplicated Qualified Code(s): F14.20 - Cocaine dependence, uncomplicated (4) Nicotine dependence Current Visit: Yes Status: Acute Qualifiers: Nicotine product type: cigarettes Substance use status: uncomplicated Qualified Code(s): F17.210 - Nicotine dependence, cigarettes, uncomplicated - AMA Did Patient Leave Against Medical Advice: No
[2019-12-19] MEDS ORDERED: LORazepam 0.5 MG TABLET PO ONE (05:00)
== END 2019-12-18 09:05 | disposition home or self-care (01) | DRG 774 ==
LOC: YASAS 14:24 → Y6N 14:52
PROVIDERS: ADMIT Allergy & Immunology; ATTEND Allergy & Immunology
PROC: HZ2ZZZZ Detoxification Services for Substance Abuse Treatment (ICD-10-PCS; principal; 2019-12-15)
DX: F10.230 Alcohol dependence with withdrawal, uncomplicated (principal); F14.20 Cocaine dependence, uncomplicated; F12.20 Cannabis dependence, uncomplicated; F17.210 Nicotine dependence, cigarettes, uncomplicated; F31.9 Bipolar disorder, unspecified; H91.91 Unspecified hearing loss, right ear; L30.9 Dermatitis, unspecified; L85.3 Xerosis cutis; R07.9 Chest pain, unspecified; Z88.6 Allergy status to analgesic agent; Z88.8 Allergy status to other drugs, medicaments and biological substances; Z59.0 Homelessness
CPT/HCPCS: 86780

== ENCOUNTER 2021-03-15 10:18 | Inpatient (IN) | payer OTHER ==
[2021-03-15 11:40] VITALS: BMI 27.6
[2021-03-15] MEDS ORDERED: MAGNESIUM HYDROX 2400MG/30ML ORAL SUSPENSION 30 ML CUP PO PRN (11:40)
[2021-03-15] MEDS ORDERED: IBUPROFEN 400 MG TABLET (FP) PO PRN (11:40)
[2021-03-15] MEDS ORDERED: NICOTINE 10 MG CARTRIDGE (INHALER) IH PRN (11:40)
[2021-03-15] MEDS ORDERED: METHOCARBAMOL 500 MG TABLET PO PRN (11:40)
[2021-03-15] MEDS ORDERED: BISMUTH SUBSALICYLATE 524 MG/30 ML PO PRN (11:40)
[2021-03-15] MEDS ORDERED: ONDANSETRON *ODT* 4 MG TABLET SL PRN (11:40)
[2021-03-15] MEDS ORDERED: MAG HYDROX/AL HYDROX/SIMETH 30 ML UNIT-DOSE CUP PO PRN (11:40)
[2021-03-15] MEDS ORDERED: MENTHOL/PHENOL 1 EACH UD MM PRN (11:40)
[2021-03-15] MEDS ORDERED: MAGNESIUM CITRATE 300 ML BOTTLE PO PRN (11:40)
[2021-03-15] MEDS ORDERED: ACETAMINOPHEN 325 MG TABLET (FP) PO PRN ×2 (11:40)
[2021-03-15] MEDS ORDERED: diazePAM 5 MG TABLET PO PRN (11:40)
[2021-03-15] MEDS: diazePAM 5 MG TABLET PO SCH ×3 (13:25→22:30)
[2021-03-15] MEDS: hydrOXYzine PAMOATE 25 MG CAPSULE (FP) PO SCH ×3 (13:27→22:29)
[2021-03-15] MEDS: NICOTINE 14 MG/24 HOURS TOPICAL PATCH TD SCH (13:38)
[2021-03-15] MEDS: PRENATAL VITAMINS W/ FOLIC ACID TABLET (FP) PO SCH (13:38)
[2021-03-15 13:56] LABS: HEMATOCRIT 37.6 % (35.4-49); HEMOGLOBIN 12.4 GM/dL (11.7-16.9); MCH 28.2 pg (25.7-33.7); MCHC 33.1 g/dl (32.0-35.9); MEAN CELL VOLUME 85.2 fl (80-96); MEAN PLT VOLUME 8.3 fl (7.5-11.1); PLATELET COUNT 261 10^3/uL (134-434); RBC 4.41 M/mm3 (4.00-5.60); RDW 12.7 % (11.9-15.9); WHITE BLOOD COUNT 8.4 K/mm3 (4.0-10.0)
[2021-03-15 14:14] LABS: CALCIUM 8.3 mg/dL (8.5-10.1)
[2021-03-15 14:15] LABS: ALBUMIN 3.5 g/dl (3.4-5.0); BLOOD UREA NITROGEN 11.8 mg/dL (7-18)
[2021-03-15 14:18] LABS: CREATININE 1.1 mg/dL (0.55-1.3)
[2021-03-15 14:19] LABS: BILIRUBIN,TOTAL 0.7 mg/dL (0.2-1); TOT PROT 7.2 g/dl (6.4-8.2)
[2021-03-15] MEDS: DIVALPROEX SODIUM 250 MG TABLET E.C. PO SCH (22:29)
[2021-03-15] MEDS: MELATONIN 5 MG TABLETS PO SCH (22:30)
[2021-03-15] MEDS: QUEtiapine FUMARATE 100 MG TABLET (FP) PO SCH (22:30)
[2021-03-15] MEDS: THIAMINE HCL 100 MG TABLET (FP) PO SCH (22:30)
[2021-03-16] MEDS: hydrOXYzine PAMOATE 25 MG CAPSULE (FP) PO SCH (07:06)
[2021-03-16] MEDS: diazePAM 5 MG TABLET PO SCH ×4 (07:06→22:20)
[2021-03-16] MEDS ORDERED: hydrOXYzine PAMOATE 25 MG CAPSULE (FP) PO PRN (08:47)
[2021-03-16] MEDS: NICOTINE 14 MG/24 HOURS TOPICAL PATCH TD SCH (10:53)
[2021-03-16] MEDS: DIVALPROEX SODIUM 250 MG TABLET E.C. PO SCH ×2 (10:53→22:20)
[2021-03-16] MEDS: PRENATAL VITAMINS W/ FOLIC ACID TABLET (FP) PO SCH (10:54)
[2021-03-16] MEDS: BETAMETHASONE DIP 0.05% TP LOTION 30 ML BOTTLE TP SCH (10:55)
[2021-03-16] MEDS ORDERED: FLU VACC QS2021-22(6MOS UP)/PF 60 MCG/0.5 ML SYRINGE IM ONE (12:00)
[2021-03-16] MEDS: QUEtiapine FUMARATE 100 MG TABLET (FP) PO SCH (22:20)
[2021-03-16] MEDS: MELATONIN 5 MG TABLETS PO SCH (22:21)
[2021-03-16] MEDS: THIAMINE HCL 100 MG TABLET (FP) PO SCH (23:11)
[2021-03-17] MEDS: diazePAM 5 MG TABLET PO SCH ×3 (07:17→23:29)
[2021-03-17] MEDS: PRENATAL VITAMINS W/ FOLIC ACID TABLET (FP) PO SCH (09:47)
[2021-03-17] MEDS: DIVALPROEX SODIUM 250 MG TABLET E.C. PO SCH ×2 (09:47→23:28)
[2021-03-17] MEDS: BETAMETHASONE DIP 0.05% TP LOTION 30 ML BOTTLE TP SCH (11:43)
[2021-03-17] MEDS: NICOTINE 14 MG/24 HOURS TOPICAL PATCH TD SCH (11:43)
[2021-03-17] MEDS: QUEtiapine FUMARATE 100 MG TABLET (FP) PO SCH (23:28)
[2021-03-17] MEDS: MELATONIN 5 MG TABLETS PO SCH (23:28)
[2021-03-17] MEDS: THIAMINE HCL 100 MG TABLET (FP) PO SCH (23:29)
[2021-03-18] MEDS ORDERED: diazePAM 5 MG TABLET PO SCH (06:00)
[2021-03-18] MEDS: DIVALPROEX SODIUM 250 MG TABLET E.C. PO SCH (10:31)
[2021-03-18] MEDS: PRENATAL VITAMINS W/ FOLIC ACID TABLET (FP) PO SCH (10:31)
[2021-03-18] MEDS: NICOTINE 14 MG/24 HOURS TOPICAL PATCH TD SCH (10:32)
[2021-03-18] MEDS: BETAMETHASONE DIP 0.05% TP LOTION 30 ML BOTTLE TP SCH (10:32)
[2021-03-18 14:02] VITALS: BP 116/70; PULSE 96; TEMP 97.8
[2021-03-19] MEDS ORDERED: diazePAM 5 MG TABLET PO ONE (06:00)
== END 2021-03-18 15:40 | disposition home or self-care (01) | DRG 774 ==
LOC: YASAS 10:18 → Y3N 12:06
PROVIDERS: ADMIT Allergy & Immunology; ATTEND Allergy & Immunology
PROC: HZ2ZZZZ Detoxification Services for Substance Abuse Treatment (ICD-10-PCS; principal; 2021-03-15)
DX: F10.230 Alcohol dependence with withdrawal, uncomplicated (principal); F14.20 Cocaine dependence, uncomplicated; F12.20 Cannabis dependence, uncomplicated; F17.210 Nicotine dependence, cigarettes, uncomplicated; F19.24 Other psychoactive substance dependence with psychoactive substance-induced mood disorder; F31.9 Bipolar disorder, unspecified; G47.00 Insomnia, unspecified; L30.9 Dermatitis, unspecified; Z56.0 Unemployment, unspecified; Z59.01 Sheltered homelessness
CPT/HCPCS: 36415; 80053; 85027; 86780; 90686; C9803; G0008; U0003; U0005

== ENCOUNTER 2021-04-24 11:25 | Inpatient (IN) | payer OTHER ==
[2021-04-24] MEDS ORDERED: MAGNESIUM HYDROX 2400MG/30ML ORAL SUSPENSION 30 ML CUP PO PRN (14:30)
[2021-04-24] MEDS ORDERED: MAG HYDROX/AL HYDROX/SIMETH 30 ML UNIT-DOSE CUP PO PRN (14:30)
[2021-04-24] MEDS ORDERED: BISMUTH SUBSALICYLATE 262 MG/15 ML BTL PO PRN (14:30)
[2021-04-24] MEDS ORDERED: NICOTINE 10 MG CARTRIDGE (INHALER) IH PRN (14:30)
[2021-04-24] MEDS ORDERED: IBUPROFEN 400 MG TABLET (FP) PO PRN (14:30)
[2021-04-24] MEDS ORDERED: ONDANSETRON *ODT* 4 MG TABLET SL PRN (14:30)
[2021-04-24] MEDS ORDERED: MENTHOL/PHENOL 1 EACH UD MM PRN (14:30)
[2021-04-24] MEDS ORDERED: ACETAMINOPHEN 325 MG TABLET (FP) PO PRN ×2 (14:30)
[2021-04-24] MEDS ORDERED: diazePAM 5 MG TABLET PO PRN (14:30)
[2021-04-24] MEDS ORDERED: MAGNESIUM CITRATE 300 ML BOTTLE PO PRN (14:30)
[2021-04-24 14:49] VITALS: BMI 28.7
[2021-04-24] MEDS: hydrOXYzine PAMOATE 25 MG CAPSULE (FP) PO SCH ×2 (17:14→22:12)
[2021-04-24] MEDS: diazePAM 5 MG TABLET PO SCH ×2 (17:15→22:12)
[2021-04-24] MEDS: THIAMINE HCL 100 MG TABLET (FP) PO SCH (22:12)
[2021-04-24] MEDS: MELATONIN 5 MG TABLETS PO SCH (22:12)
[2021-04-25] MEDS: diazePAM 5 MG TABLET PO SCH ×4 (05:23→22:05)
[2021-04-25] MEDS: hydrOXYzine PAMOATE 25 MG CAPSULE (FP) PO SCH ×5 (05:23→22:05)
[2021-04-25] MEDS: PRENATAL VITAMINS W/ FOLIC ACID TABLET (FP) PO SCH (10:19)
[2021-04-25] MEDS: METHOCARBAMOL 500 MG TABLET PO PRN ×2 (10:19→17:11)
[2021-04-25 10:59] LABS: HEMATOCRIT 37.8 % (35.4-49); HEMOGLOBIN 12.4 GM/dL (11.7-16.9); MCH 27.8 pg (25.7-33.7); MCHC 32.9 g/dl (32.0-35.9); MEAN CELL VOLUME 84.4 fl (80-96); MEAN PLT VOLUME 8.6 fl (7.5-11.1); PLATELET COUNT 221 10^3/uL (134-434); RBC 4.48 M/mm3 (4.00-5.60); RDW 13.3 % (11.9-15.9); WHITE BLOOD COUNT 5.6 K/mm3 (4.0-10.0)
[2021-04-25 11:03] LABS: BLOOD UREA NITROGEN 13.6 mg/dL (7-18)
[2021-04-25 11:04] LABS: ALBUMIN 2.8 g/dl (3.4-5.0); CALCIUM 8.3 mg/dL (8.5-10.1)
[2021-04-25 11:05] LABS: TOT PROT 6.4 g/dl (6.4-8.2)
[2021-04-25 11:07] LABS: BILIRUBIN,TOTAL 0.8 mg/dL (0.2-1); CREATININE 1.1 mg/dL (0.55-1.3)
[2021-04-25] MEDS: MELATONIN 5 MG TABLETS PO SCH (22:05)
[2021-04-25] MEDS: THIAMINE HCL 100 MG TABLET (FP) PO SCH (22:05)
[2021-04-26] MEDS: diazePAM 5 MG TABLET PO SCH ×3 (05:47→22:40)
[2021-04-26] MEDS: hydrOXYzine PAMOATE 25 MG CAPSULE (FP) PO SCH ×5 (05:47→22:40)
[2021-04-26] MEDS: PRENATAL VITAMINS W/ FOLIC ACID TABLET (FP) PO SCH (10:09)
[2021-04-26] MEDS: METHOCARBAMOL 500 MG TABLET PO PRN (10:09)
[2021-04-26] MEDS: MELATONIN 5 MG TABLETS PO SCH (22:40)
[2021-04-26] MEDS: THIAMINE HCL 100 MG TABLET (FP) PO SCH (22:40)
[2021-04-27] MEDS: hydrOXYzine PAMOATE 25 MG CAPSULE (FP) PO SCH ×5 (05:42→21:14)
[2021-04-27] MEDS: diazePAM 5 MG TABLET PO SCH ×2 (05:43→17:34)
[2021-04-27] MEDS: PRENATAL VITAMINS W/ FOLIC ACID TABLET (FP) PO SCH (10:20)
[2021-04-27] MEDS: THIAMINE HCL 100 MG TABLET (FP) PO SCH (21:14)
[2021-04-27] MEDS: MELATONIN 5 MG TABLETS PO SCH (21:14)
[2021-04-28] MEDS: hydrOXYzine PAMOATE 25 MG CAPSULE (FP) PO SCH (05:28)
[2021-04-28] MEDS ORDERED: diazePAM 5 MG TABLET PO ONE (06:00)
[2021-04-28 09:06] VITALS: BP 132/65; PULSE 102; TEMP 98.6
== END 2021-04-28 08:44 | disposition home or self-care (01) | DRG 774 ==
LOC: YASAS 11:25 → Y6N 15:36
PROVIDERS: ADMIT Allergy & Immunology; ATTEND Allergy & Immunology
PROC: HZ2ZZZZ Detoxification Services for Substance Abuse Treatment (ICD-10-PCS; principal; 2021-04-24)
DX: F10.230 Alcohol dependence with withdrawal, uncomplicated (principal); F14.20 Cocaine dependence, uncomplicated; F12.20 Cannabis dependence, uncomplicated; F17.210 Nicotine dependence, cigarettes, uncomplicated; F19.282 Other psychoactive substance dependence with psychoactive substance-induced sleep disorder; F31.9 Bipolar disorder, unspecified; F39 Unspecified mood [affective] disorder; L30.9 Dermatitis, unspecified; Z86.59 Personal history of other mental and behavioral disorders; Z59.00 Homelessness unspecified; Z88.8 Allergy status to other drugs, medicaments and biological substances
CPT/HCPCS: 36415; 80053; 80164; 82962; 85027; 86780; C9803; U0003; U0005

== ENCOUNTER 2021-07-25 10:07 | Inpatient (IN) | payer OTHER ==
[2021-07-25] MEDS ORDERED: MAG HYDROX/AL HYDROX/SIMETH 30 ML UNIT-DOSE CUP PO PRN (10:49)
[2021-07-25] MEDS ORDERED: MAGNESIUM HYDROX 2400MG/30ML ORAL SUSPENSION 30 ML CUP PO PRN (10:49)
[2021-07-25] MEDS ORDERED: MAGNESIUM CITRATE 300 ML BOTTLE PO PRN (10:49)
[2021-07-25] MEDS ORDERED: diazePAM 5 MG TABLET PO PRN (10:49)
[2021-07-25] MEDS ORDERED: NICOTINE 10 MG CARTRIDGE (INHALER) IH PRN (10:49)
[2021-07-25] MEDS ORDERED: BISMUTH SUBSALICYLATE 524 MG/30 ML PO PRN (10:49)
[2021-07-25] MEDS ORDERED: ONDANSETRON *ODT* 4 MG TABLET SL PRN (10:49)
[2021-07-25] MEDS ORDERED: MENTHOL/PHENOL 1 EACH UD MM PRN (10:49)
[2021-07-25] MEDS ORDERED: ACETAMINOPHEN 325 MG TABLET (FP) PO PRN ×2 (10:49)
[2021-07-25] MEDS ORDERED: IBUPROFEN 400 MG TABLET (FP) PO PRN (10:49)
[2021-07-25 11:09] VITALS: BMI 28.5
[2021-07-25] MEDS: METHOCARBAMOL 500 MG TABLET PO PRN (12:31)
[2021-07-25] MEDS: diazePAM 5 MG TABLET PO SCH ×3 (12:32→22:32)
[2021-07-25] MEDS: hydrOXYzine PAMOATE 25 MG CAPSULE (FP) PO SCH ×3 (14:40→22:31)
[2021-07-25] MEDS: PRENATAL VITAMINS W/ FOLIC ACID TABLET (FP) PO SCH (14:40)
[2021-07-25 17:42] LABS: HEMATOCRIT 37.8 % (35.4-49); HEMOGLOBIN 12.2 GM/dL (11.7-16.9); MCHC 32.4 g/dl (32.0-35.9); MEAN CELL VOLUME 83.3 fl (80-96); MEAN PLT VOLUME 8.3 fl (7.5-11.1); PLATELET COUNT 270 10^3/uL (134-434); RBC 4.53 M/mm3 (4.00-5.60); RDW 13.8 % (11.9-15.9); WHITE BLOOD COUNT 5.9 K/mm3 (4.0-10.0)
[2021-07-25 18:08] LABS: ALBUMIN 3.7 g/dl (3.4-5.0); BLOOD UREA NITROGEN 15.8 mg/dL (7-18)
[2021-07-25 18:10] LABS: CALCIUM 8.9 mg/dL (8.5-10.1)
[2021-07-25 18:11] LABS: CREATININE 1.1 mg/dL (0.55-1.3)
[2021-07-25 18:12] LABS: BILIRUBIN,TOTAL 0.6 mg/dL (0.2-1); TOT PROT 7.4 g/dl (6.4-8.2)
[2021-07-25] MEDS: MELATONIN 5 MG TABLETS PO SCH (22:31)
[2021-07-25] MEDS: THIAMINE HCL 100 MG TABLET (FP) PO SCH (22:31)
[2021-07-26] MEDS: hydrOXYzine PAMOATE 25 MG CAPSULE (FP) PO SCH ×5 (06:19→22:37)
[2021-07-26] MEDS: diazePAM 5 MG TABLET PO SCH ×4 (06:19→22:36)
[2021-07-26] MEDS: PRENATAL VITAMINS W/ FOLIC ACID TABLET (FP) PO SCH (10:13)
[2021-07-26] MEDS ORDERED: FLU VACC QS2021-22(6MOS UP)/PF 60 MCG/0.5 ML SYRINGE IM ONE (12:00)
[2021-07-26] MEDS: MELATONIN 5 MG TABLETS PO SCH (22:37)
[2021-07-26] MEDS: THIAMINE HCL 100 MG TABLET (FP) PO SCH (22:37)
[2021-07-27] MEDS: diazePAM 5 MG TABLET PO SCH ×3 (05:43→22:36)
[2021-07-27] MEDS: hydrOXYzine PAMOATE 25 MG CAPSULE (FP) PO SCH ×5 (05:44→22:35)
[2021-07-27] MEDS: PRENATAL VITAMINS W/ FOLIC ACID TABLET (FP) PO SCH (10:16)
[2021-07-27] MEDS: METHOCARBAMOL 500 MG TABLET PO PRN (17:56)
[2021-07-27] MEDS: THIAMINE HCL 100 MG TABLET (FP) PO SCH (22:35)
[2021-07-27] MEDS: MELATONIN 5 MG TABLETS PO SCH (22:35)
[2021-07-28] MEDS: hydrOXYzine PAMOATE 25 MG CAPSULE (FP) PO SCH (05:32)
[2021-07-28] MEDS ORDERED: diazePAM 5 MG TABLET PO SCH (06:00)
[2021-07-28 09:11] VITALS: BP 123/85; PULSE 109; TEMP 98
[2021-07-29] MEDS ORDERED: diazePAM 5 MG TABLET PO ONE (06:00)
== END 2021-07-28 09:48 | disposition home or self-care (01) | DRG 774 ==
LOC: YASAS 10:07 → Y6N 11:24
PROVIDERS: ADMIT Allergy & Immunology; ATTEND Allergy & Immunology
PROC: HZ2ZZZZ Detoxification Services for Substance Abuse Treatment (ICD-10-PCS; principal; 2021-07-25)
DX: F10.230 Alcohol dependence with withdrawal, uncomplicated (principal); F14.20 Cocaine dependence, uncomplicated; F12.20 Cannabis dependence, uncomplicated; F17.210 Nicotine dependence, cigarettes, uncomplicated; F39 Unspecified mood [affective] disorder; F19.282 Other psychoactive substance dependence with psychoactive substance-induced sleep disorder; F31.9 Bipolar disorder, unspecified; L30.9 Dermatitis, unspecified; Z88.6 Allergy status to analgesic agent; Z88.8 Allergy status to other drugs, medicaments and biological substances; Z56.0 Unemployment, unspecified; Z59.02 Unsheltered homelessness
CPT/HCPCS: 36415; 80053; 85027; 86780; C9803; U0003; U0005

== ENCOUNTER 2021-09-22 09:28 | Inpatient (IN) | payer OTHER ==
[2021-09-22] MEDS ORDERED: MAGNESIUM HYDROX 2400MG/30ML ORAL SUSPENSION 30 ML CUP PO PRN (09:38)
[2021-09-22] MEDS ORDERED: LOPERAMIDE HCL 2 MG CAPSULE PO PRN (09:38)
[2021-09-22] MEDS ORDERED: ACETAMINOPHEN 325 MG TABLET (FP) PO PRN ×2 (09:38)
[2021-09-22] MEDS ORDERED: ONDANSETRON *ODT* 4 MG TABLET SL PRN (09:38)
[2021-09-22] MEDS ORDERED: METHOCARBAMOL 500 MG TABLET PO PRN (09:38)
[2021-09-22] MEDS ORDERED: MAGNESIUM CITRATE 300 ML BOTTLE PO PRN (09:38)
[2021-09-22] MEDS ORDERED: DICYCLOMINE HCL 10 MG CAPSULE PO PRN (09:38)
[2021-09-22] MEDS ORDERED: chlordiazePOXIDE HCL 25 MG CAPSULE PO PRN (09:38)
[2021-09-22] MEDS ORDERED: MAG HYDROX/AL HYDROX/SIMETH 30 ML UNIT-DOSE CUP PO PRN (09:38)
[2021-09-22] MEDS ORDERED: IBUPROFEN 400 MG TABLET (FP) PO PRN (09:38)
[2021-09-22] MEDS ORDERED: BENZOCAINE/MENTHOL (CHLORASEPTIC ) LOZENGE MM PRN (09:38)
[2021-09-22] MEDS ORDERED: BISMUTH SUBSALICYLATE 262 MG/15 ML BTL PO PRN (09:38)
[2021-09-22 10:06] VITALS: BMI 28.1
[2021-09-22] MEDS ORDERED: diazePAM 5 MG TABLET PO PRN (12:00)
[2021-09-22] MEDS: hydrOXYzine PAMOATE 25 MG CAPSULE (FP) PO SCH ×3 (15:04→22:32)
[2021-09-22] MEDS: PRENATAL VITAMINS W/ FOLIC ACID TABLET (FP) PO SCH (15:05)
[2021-09-22] MEDS ORDERED: chlordiazePOXIDE HCL 25 MG CAPSULE PO SCH (17:00)
[2021-09-22] MEDS: diazePAM 5 MG TABLET PO SCH ×2 (18:05→22:32)
[2021-09-22] MEDS: MELATONIN 5 MG TABLETS PO SCH (22:32)
[2021-09-22] MEDS: THIAMINE HCL 100 MG TABLET (FP) PO SCH (22:32)
[2021-09-23] MEDS: diazePAM 5 MG TABLET PO SCH ×4 (06:20→23:17)
[2021-09-23] MEDS: hydrOXYzine PAMOATE 25 MG CAPSULE (FP) PO SCH ×5 (06:21→23:16)
[2021-09-23] MEDS: PRENATAL VITAMINS W/ FOLIC ACID TABLET (FP) PO SCH (10:13)
[2021-09-23 13:20] LABS: ALBUMIN 2.8 g/dl (3.4-5.0); BLOOD UREA NITROGEN 14.3 mg/dL (7-18); CALCIUM 8.5 mg/dL (8.5-10.1)
[2021-09-23 13:24] LABS: CREATININE 0.9 mg/dL (0.55-1.3)
[2021-09-23 13:25] LABS: BILIRUBIN,TOTAL 0.4 mg/dL (0.2-1); TOT PROT 6.5 g/dl (6.4-8.2)
[2021-09-23 13:28] LABS: HEMATOCRIT 37.1 % (35.4-49); MCH 27.5 pg (25.7-33.7); MCHC 32.4 g/dl (32.0-35.9); MEAN CELL VOLUME 84.8 fl (80-96); MEAN PLT VOLUME 8.4 fl (7.5-11.1); PLATELET COUNT 276 10^3/uL (134-434); RBC 4.37 M/mm3 (4.00-5.60); RDW 14.6 % (11.9-15.9); WHITE BLOOD COUNT 6.6 K/mm3 (4.0-10.0)
[2021-09-23] MEDS: MELATONIN 5 MG TABLETS PO SCH (23:16)
[2021-09-23] MEDS: THIAMINE HCL 100 MG TABLET (FP) PO SCH (23:17)
[2021-09-24] MEDS ORDERED: chlordiazePOXIDE HCL 25 MG CAPSULE PO SCH (05:00)
[2021-09-24] MEDS: hydrOXYzine PAMOATE 25 MG CAPSULE (FP) PO SCH ×5 (05:24→22:28)
[2021-09-24] MEDS: diazePAM 5 MG TABLET PO SCH ×3 (05:24→22:28)
[2021-09-24] MEDS: PRENATAL VITAMINS W/ FOLIC ACID TABLET (FP) PO SCH (10:44)
[2021-09-24 16:07] LABS: SARS-CoV-2 NAA Not Detected (Not Detected)
[2021-09-24] MEDS: THIAMINE HCL 100 MG TABLET (FP) PO SCH (22:28)
[2021-09-24] MEDS: MELATONIN 5 MG TABLETS PO SCH (22:28)
[2021-09-25] MEDS ORDERED: chlordiazePOXIDE HCL 10 MG CAPSULE PO PRN
[2021-09-25] MEDS ORDERED: chlordiazePOXIDE HCL 10 MG CAPSULE PO SCH (05:00)
[2021-09-25] MEDS: diazePAM 5 MG TABLET PO SCH ×2 (05:08→17:52)
[2021-09-25] MEDS: hydrOXYzine PAMOATE 25 MG CAPSULE (FP) PO SCH ×5 (05:09→22:02)
[2021-09-25] MEDS: PRENATAL VITAMINS W/ FOLIC ACID TABLET (FP) PO SCH (10:24)
[2021-09-25] MEDS ORDERED: QUEtiapine FUMARATE 100 MG TABLET (FP) PO SCH (22:00)
[2021-09-25] MEDS: MELATONIN 5 MG TABLETS PO SCH (22:02)
[2021-09-25] MEDS: THIAMINE HCL 100 MG TABLET (FP) PO SCH (22:02)
[2021-09-26] MEDS ORDERED: chlordiazePOXIDE HCL 10 MG CAPSULE PO SCH (05:00)
[2021-09-26] MEDS: hydrOXYzine PAMOATE 25 MG CAPSULE (FP) PO SCH ×2 (05:19→10:17)
[2021-09-26] MEDS ORDERED: diazePAM 5 MG TABLET PO ONE (06:00)
[2021-09-26] MEDS: PRENATAL VITAMINS W/ FOLIC ACID TABLET (FP) PO SCH (10:16)
[2021-09-26 12:33] VITALS: BP 119/69; PULSE 99; TEMP 97
[2021-09-27] MEDS ORDERED: chlordiazePOXIDE HCL 10 MG CAPSULE PO ONE (05:00)
== END 2021-09-26 11:13 | disposition home or self-care (01) | DRG 774 ==
LOC: YASAS 09:28 → Y3N 12:50
PROVIDERS: ADMIT Allergy & Immunology; ATTEND Allergy & Immunology
PROC: HZ2ZZZZ Detoxification Services for Substance Abuse Treatment (ICD-10-PCS; principal; 2021-09-22)
DX: F10.20 Alcohol dependence, uncomplicated (principal); F14.20 Cocaine dependence, uncomplicated; F12.20 Cannabis dependence, uncomplicated; F31.9 Bipolar disorder, unspecified; E88.09 Other disorders of plasma-protein metabolism, not elsewhere classified; G47.00 Insomnia, unspecified; L30.9 Dermatitis, unspecified; R73.9 Hyperglycemia, unspecified; Z87.891 Personal history of nicotine dependence; Z88.8 Allergy status to other drugs, medicaments and biological substances; Z56.0 Unemployment, unspecified; Z59.01 Sheltered homelessness; Z91.19 Patient's noncompliance with other medical treatment and regimen
CPT/HCPCS: 36415; 80053; 82947; 83036; 85027; 86780; 87811; C9803-CS; U0003; U0005

== ENCOUNTER 2021-10-19 10:55 | Inpatient (IN) | payer OTHER ==
[2021-10-19 11:22] VITALS: BMI 29.4
[2021-10-19] MEDS ORDERED: IBUPROFEN 400 MG TABLET (FP) PO PRN (13:02)
[2021-10-19] MEDS ORDERED: MAGNESIUM CITRATE 300 ML BOTTLE PO PRN (13:02)
[2021-10-19] MEDS ORDERED: NICOTINE 10 MG CARTRIDGE (INHALER) IH PRN (13:02)
[2021-10-19] MEDS ORDERED: chlordiazePOXIDE HCL 25 MG CAPSULE PO PRN (13:02)
[2021-10-19] MEDS ORDERED: LOPERAMIDE HCL 2 MG CAPSULE PO PRN (13:02)
[2021-10-19] MEDS ORDERED: DICYCLOMINE HCL 10 MG CAPSULE PO PRN (13:02)
[2021-10-19] MEDS ORDERED: BISMUTH SUBSALICYLATE 262 MG/15 ML BTL PO PRN (13:02)
[2021-10-19] MEDS ORDERED: ACETAMINOPHEN 325 MG TABLET (FP) PO PRN ×2 (13:02)
[2021-10-19] MEDS ORDERED: MAG HYDROX/AL HYDROX/SIMETH 30 ML UNIT-DOSE CUP PO PRN (13:02)
[2021-10-19] MEDS ORDERED: ONDANSETRON *ODT* 4 MG TABLET SL PRN (13:02)
[2021-10-19] MEDS ORDERED: BENZOCAINE/MENTHOL (CHLORASEPTIC ) LOZENGE MM PRN (13:02)
[2021-10-19] MEDS ORDERED: MAGNESIUM HYDROX 2400MG/30ML ORAL SUSPENSION 30 ML CUP PO PRN (13:02)
[2021-10-19] MEDS ORDERED: hydrOXYzine PAMOATE 25 MG CAPSULE (FP) PO ONE (13:53)
[2021-10-19] MEDS ORDERED: diazePAM 5 MG TABLET ONE (13:53)
[2021-10-19] MEDS: diazePAM 5 MG TABLET PO PRN (13:57)
[2021-10-19] MEDS: METHOCARBAMOL 500 MG TABLET PO PRN (14:19)
[2021-10-19] MEDS: PRENATAL VITAMINS W/ FOLIC ACID TABLET (FP) PO SCH (14:19)
[2021-10-19] MEDS: hydrOXYzine PAMOATE 25 MG CAPSULE (FP) PO SCH ×3 (14:19→22:30)
[2021-10-19 16:58] LABS: HEMATOCRIT 34.3 % (35.4-49); HEMOGLOBIN 11.2 GM/dL (11.7-16.9); MCH 27.5 pg (25.7-33.7); MCHC 32.6 g/dl (32.0-35.9); MEAN CELL VOLUME 84.2 fl (80-96); MEAN PLT VOLUME 8.7 fl (7.5-11.1); PLATELET COUNT 236 10^3/uL (134-434); RBC 4.07 M/mm3 (4.00-5.60); RDW 14.5 % (11.9-15.9); WHITE BLOOD COUNT 5.9 K/mm3 (4.0-10.0)
[2021-10-19] MEDS ORDERED: chlordiazePOXIDE HCL 25 MG CAPSULE PO SCH (17:00)
[2021-10-19 17:10] LABS: CALCIUM 8.4 mg/dL (8.5-10.1)
[2021-10-19 17:11] LABS: ALBUMIN 3.5 g/dl (3.4-5.0); BLOOD UREA NITROGEN 15.2 mg/dL (7-18)
[2021-10-19 17:14] LABS: CREATININE 1.1 mg/dL (0.55-1.3)
[2021-10-19 17:17] LABS: BILIRUBIN,TOTAL 0.3 mg/dL (0.2-1)
[2021-10-19] MEDS: diazePAM 5 MG TABLET PO SCH ×2 (17:43→22:31)
[2021-10-19] MEDS: THIAMINE HCL 100 MG TABLET (FP) PO SCH (22:31)
[2021-10-19] MEDS: MELATONIN 5 MG TABLETS PO SCH (22:31)
[2021-10-20] MEDS: diazePAM 5 MG TABLET PO SCH ×4 (06:28→22:28)
[2021-10-20] MEDS: hydrOXYzine PAMOATE 25 MG CAPSULE (FP) PO SCH ×5 (06:29→22:27)
[2021-10-20] MEDS: PRENATAL VITAMINS W/ FOLIC ACID TABLET (FP) PO SCH (10:50)
[2021-10-20] MEDS: METHOCARBAMOL 500 MG TABLET PO PRN (10:51)
[2021-10-20] MEDS: diazePAM 5 MG TABLET PO ONE (18:15)
[2021-10-20] MEDS: MELATONIN 5 MG TABLETS PO SCH (22:27)
[2021-10-20] MEDS: THIAMINE HCL 100 MG TABLET (FP) PO SCH (22:27)
[2021-10-21] MEDS ORDERED: chlordiazePOXIDE HCL 25 MG CAPSULE PO SCH (05:00)
[2021-10-21] MEDS: hydrOXYzine PAMOATE 25 MG CAPSULE (FP) PO SCH ×5 (06:27→22:28)
[2021-10-21] MEDS: diazePAM 5 MG TABLET PO SCH ×3 (06:27→22:27)
[2021-10-21] MEDS: diazePAM 5 MG TABLET PO PRN ×2 (10:35→18:13)
[2021-10-21] MEDS: PRENATAL VITAMINS W/ FOLIC ACID TABLET (FP) PO SCH (10:35)
[2021-10-21 12:09] LABS: SARS-CoV-2 NAA Not Detected (Not Detected)
[2021-10-21] MEDS: THIAMINE HCL 100 MG TABLET (FP) PO SCH (22:27)
[2021-10-21] MEDS: MELATONIN 5 MG TABLETS PO SCH (22:28)
[2021-10-22] MEDS ORDERED: chlordiazePOXIDE HCL 10 MG CAPSULE PO PRN
[2021-10-22] MEDS ORDERED: chlordiazePOXIDE HCL 10 MG CAPSULE PO SCH (05:00)
[2021-10-22] MEDS: diazePAM 5 MG TABLET PO SCH ×2 (05:19→18:45)
[2021-10-22] MEDS: hydrOXYzine PAMOATE 25 MG CAPSULE (FP) PO SCH ×5 (05:19→22:17)
[2021-10-22] MEDS: PRENATAL VITAMINS W/ FOLIC ACID TABLET (FP) PO SCH (10:17)
[2021-10-22] MEDS: diazePAM 5 MG TABLET PO PRN (10:18)
[2021-10-22] MEDS: THIAMINE HCL 100 MG TABLET (FP) PO SCH (22:17)
[2021-10-22] MEDS: MELATONIN 5 MG TABLETS PO SCH (22:17)
[2021-10-23] MEDS ORDERED: chlordiazePOXIDE HCL 10 MG CAPSULE PO SCH (05:00)
[2021-10-23] MEDS: hydrOXYzine PAMOATE 25 MG CAPSULE (FP) PO SCH (05:21)
[2021-10-23] MEDS: diazePAM 5 MG TABLET PO ONE (05:21)
[2021-10-23 07:08] VITALS: BP 116/74; PULSE 73; TEMP 96.8
[2021-10-24] MEDS ORDERED: chlordiazePOXIDE HCL 10 MG CAPSULE PO ONE (05:00)
== END 2021-10-23 08:55 | disposition home or self-care (01) | DRG 774 ==
LOC: YASAS 10:55 → Y6N 13:51
PROVIDERS: ADMIT Allergy & Immunology; ATTEND Allergy & Immunology
PROC: HZ2ZZZZ Detoxification Services for Substance Abuse Treatment (ICD-10-PCS; principal; 2021-10-19)
DX: F10.230 Alcohol dependence with withdrawal, uncomplicated (principal); F14.20 Cocaine dependence, uncomplicated; F12.20 Cannabis dependence, uncomplicated; F17.210 Nicotine dependence, cigarettes, uncomplicated; F19.282 Other psychoactive substance dependence with psychoactive substance-induced sleep disorder; F31.9 Bipolar disorder, unspecified; F41.9 Anxiety disorder, unspecified; Z28.311 Partially vaccinated for COVID-19; Z88.6 Allergy status to analgesic agent; Z88.0 Allergy status to penicillin; Z59.02 Unsheltered homelessness
CPT/HCPCS: 36415; 80053; 85027; 86780; 87811; C9803-CS; U0003; U0005

== ENCOUNTER 2022-01-04 08:26 | Inpatient (IN) | payer OTHER ==
[2022-01-04 09:16] VITALS: BMI 30.1
[2022-01-04] MEDS ORDERED: ONDANSETRON *ODT* 4 MG TABLET SL PRN (09:55)
[2022-01-04] MEDS ORDERED: DICYCLOMINE HCL 10 MG CAPSULE PO PRN (09:55)
[2022-01-04] MEDS ORDERED: IBUPROFEN 600 MG TABLET (FP) PO PRN (09:55)
[2022-01-04] MEDS ORDERED: ACETAMINOPHEN 325 MG TABLET (FP) PO PRN ×2 (09:55)
[2022-01-04] MEDS ORDERED: MAGNESIUM CITRATE 300 ML BOTTLE PO PRN (09:55)
[2022-01-04] MEDS ORDERED: NICOTINE 10 MG CARTRIDGE (INHALER) IH PRN (09:55)
[2022-01-04] MEDS ORDERED: BISMUTH SUBSALICYLATE 262 MG/15 ML BTL PO PRN (09:55)
[2022-01-04] MEDS ORDERED: LOPERAMIDE HCL 2 MG CAPSULE PO PRN (09:55)
[2022-01-04] MEDS ORDERED: IBUPROFEN 400 MG TABLET (FP) PO PRN (09:55)
[2022-01-04] MEDS ORDERED: MAG HYDROX/AL HYDROX/SIMETH 30 ML UNIT-DOSE CUP PO PRN (09:55)
[2022-01-04] MEDS ORDERED: MAGNESIUM HYDROX 2400MG/30ML ORAL SUSPENSION 30 ML CUP PO PRN (09:55)
[2022-01-04] MEDS ORDERED: BENZOCAINE/MENTHOL (CHLORASEPTIC ) LOZENGE MM PRN (09:55)
[2022-01-04] MEDS ORDERED: diazePAM 5 MG TABLET PO PRN (09:55)
[2022-01-04] MEDS: PRENATAL VITAMINS W/ FOLIC ACID TABLET (FP) PO SCH (11:43)
[2022-01-04] MEDS: hydrOXYzine PAMOATE 25 MG CAPSULE (FP) PO SCH ×4 (11:43→22:50)
[2022-01-04] MEDS: diazePAM 5 MG TABLET PO SCH ×2 (19:16→22:49)
[2022-01-04] MEDS: QUEtiapine FUMARATE 50 MG TABLET PO SCH (22:49)
[2022-01-04] MEDS: DIVALPROEX SODIUM 250 MG TABLET E.C. PO SCH (22:50)
[2022-01-04] MEDS: MELATONIN 5 MG TABLETS PO SCH (22:50)
[2022-01-04] MEDS: THIAMINE HCL 100 MG TABLET (FP) PO SCH (22:50)
[2022-01-05] MEDS: diazePAM 5 MG TABLET PO SCH ×4 (06:24→22:26)
[2022-01-05] MEDS: hydrOXYzine PAMOATE 25 MG CAPSULE (FP) PO SCH ×5 (06:24→22:26)
[2022-01-05] MEDS: DIVALPROEX SODIUM 250 MG TABLET E.C. PO SCH ×2 (10:56→22:26)
[2022-01-05] MEDS: PRENATAL VITAMINS W/ FOLIC ACID TABLET (FP) PO SCH (10:56)
[2022-01-05 12:24] LABS: HEMOGLOBIN 12.1 GM/dL (11.7-16.9); MCH 26.8 pg (25.7-33.7); MCHC 32.7 g/dl (32.0-35.9); MEAN CELL VOLUME 81.9 fl (80-96); MEAN PLT VOLUME 8.4 fl (7.5-11.1); PLATELET COUNT 301 10^3/uL (134-434); RBC 4.52 M/mm3 (4.00-5.60); RDW 14.4 % (11.9-15.9); WHITE BLOOD COUNT 5.5 K/mm3 (4.0-10.0)
[2022-01-05 12:55] LABS: CALCIUM 8.2 mg/dL (8.5-10.1)
[2022-01-05 12:56] LABS: BLOOD UREA NITROGEN 16.4 mg/dL (7-18)
[2022-01-05 12:59] LABS: CREATININE 0.9 mg/dL (0.55-1.3)
[2022-01-05 13:01] LABS: BILIRUBIN,TOTAL 0.2 mg/dL (0.2-1); TOT PROT 6.5 g/dl (6.4-8.2)
[2022-01-05] MEDS: THIAMINE HCL 100 MG TABLET (FP) PO SCH (22:26)
[2022-01-05] MEDS: MELATONIN 5 MG TABLETS PO SCH (22:26)
[2022-01-05] MEDS: QUEtiapine FUMARATE 50 MG TABLET PO SCH (22:27)
[2022-01-06] MEDS: hydrOXYzine PAMOATE 25 MG CAPSULE (FP) PO SCH ×5 (06:26→22:46)
[2022-01-06] MEDS: diazePAM 5 MG TABLET PO SCH ×3 (06:26→22:46)
[2022-01-06] MEDS: PRENATAL VITAMINS W/ FOLIC ACID TABLET (FP) PO SCH (10:24)
[2022-01-06] MEDS: DIVALPROEX SODIUM 250 MG TABLET E.C. PO SCH ×2 (10:24→22:46)
[2022-01-06] MEDS: METHOCARBAMOL 500 MG TABLET PO PRN ×2 (10:25→22:47)
[2022-01-06 21:48] VITALS: RESP 18
[2022-01-06] MEDS: QUEtiapine FUMARATE 50 MG TABLET PO SCH (22:46)
[2022-01-06] MEDS: MELATONIN 5 MG TABLETS PO SCH (22:46)
[2022-01-06] MEDS: THIAMINE HCL 100 MG TABLET (FP) PO SCH (22:46)
[2022-01-07] MEDS: hydrOXYzine PAMOATE 25 MG CAPSULE (FP) PO SCH ×2 (05:29→10:22)
[2022-01-07] MEDS ORDERED: diazePAM 5 MG TABLET PO SCH (06:00)
[2022-01-07 09:11] VITALS: BP 121/77; PULSE 96; TEMP 98.4
[2022-01-07] MEDS: DIVALPROEX SODIUM 250 MG TABLET E.C. PO SCH (10:22)
[2022-01-07] MEDS: PRENATAL VITAMINS W/ FOLIC ACID TABLET (FP) PO SCH (10:22)
[2022-01-08] MEDS ORDERED: diazePAM 5 MG TABLET PO ONE (06:00)
== END 2022-01-07 11:45 | disposition home or self-care (01) | DRG 774 ==
LOC: YASAS 08:26 → Y3N 10:14
PROVIDERS: ADMIT Allergy & Immunology; ATTEND Surgery
PROC: HZ2ZZZZ Detoxification Services for Substance Abuse Treatment (ICD-10-PCS; principal; 2022-01-04)
DX: F10.230 Alcohol dependence with withdrawal, uncomplicated (principal); F14.20 Cocaine dependence, uncomplicated; F12.20 Cannabis dependence, uncomplicated; F17.213 Nicotine dependence, cigarettes, with withdrawal; F31.9 Bipolar disorder, unspecified; Z87.891 Personal history of nicotine dependence; Z88.8 Allergy status to other drugs, medicaments and biological substances; Z88.6 Allergy status to analgesic agent; Z56.0 Unemployment, unspecified; Z59.01 Sheltered homelessness
CPT/HCPCS: 36415; 80053; 80164; 85027; 86780; C9803-CS; U0003; U0005

== ENCOUNTER 2022-01-30 09:43 | Inpatient (IN) | payer OTHER ==
[2022-01-30 11:45] VITALS: BMI 31.8
[2022-01-30] MEDS ORDERED: ACETAMINOPHEN 325 MG TABLET (FP) PO PRN ×2 (11:57)
[2022-01-30] MEDS ORDERED: MAGNESIUM HYDROX 2400MG/30ML ORAL SUSPENSION 30 ML CUP PO PRN (11:57)
[2022-01-30] MEDS ORDERED: IBUPROFEN 600 MG TABLET (FP) PO PRN (11:57)
[2022-01-30] MEDS ORDERED: LOPERAMIDE HCL 2 MG CAPSULE PO PRN (11:57)
[2022-01-30] MEDS ORDERED: BENZOCAINE/MENTHOL (CHLORASEPTIC ) LOZENGE MM PRN (11:57)
[2022-01-30] MEDS ORDERED: MAGNESIUM CITRATE 300 ML BOTTLE PO PRN (11:57)
[2022-01-30] MEDS ORDERED: ONDANSETRON *ODT* 4 MG TABLET SL PRN (11:57)
[2022-01-30] MEDS ORDERED: diazePAM 5 MG TABLET PO PRN (11:57)
[2022-01-30] MEDS ORDERED: IBUPROFEN 400 MG TABLET (FP) PO PRN (11:57)
[2022-01-30] MEDS ORDERED: BISMUTH SUBSALICYLATE 524 MG/30 ML PO PRN (11:57)
[2022-01-30] MEDS ORDERED: DICYCLOMINE HCL 10 MG CAPSULE PO PRN (11:57)
[2022-01-30] MEDS ORDERED: MAG HYDROX/AL HYDROX/SIMETH 30 ML UNIT-DOSE CUP PO PRN (11:57)
[2022-01-30] MEDS ORDERED: METHOCARBAMOL 500 MG TABLET PO PRN (11:57)
[2022-01-30] MEDS: PRENATAL VITAMINS W/ FOLIC ACID TABLET (FP) PO SCH (12:53)
[2022-01-30] MEDS: hydrOXYzine PAMOATE 25 MG CAPSULE (FP) PO SCH ×3 (15:07→22:12)
[2022-01-30 16:37] LABS: HEMATOCRIT 38.7 % (35.4-49); HEMOGLOBIN 12.8 GM/dL (11.7-16.9); MCH 27.1 pg (25.7-33.7); MCHC 33.1 g/dl (32.0-35.9); MEAN CELL VOLUME 81.7 fl (80-96); MEAN PLT VOLUME 8.3 fl (7.5-11.1); PLATELET COUNT 202 10^3/uL (134-434); RBC 4.73 M/mm3 (4.00-5.60); RDW 15.4 % (11.9-15.9); WHITE BLOOD COUNT 4.8 K/mm3 (4.0-10.0)
[2022-01-30 16:41] LABS: ALBUMIN 3.5 g/dl (3.4-5.0); BLOOD UREA NITROGEN 11.6 mg/dL (7-18); CALCIUM 8.3 mg/dL (8.5-10.1)
[2022-01-30 16:43] LABS: BILIRUBIN,TOTAL 0.4 mg/dL (0.2-1)
[2022-01-30 16:45] LABS: TOT PROT 7.2 g/dl (6.4-8.2)
[2022-01-30] MEDS: diazePAM 5 MG TABLET PO SCH ×2 (18:09→22:12)
[2022-01-30] MEDS: MELATONIN 5 MG TABLETS PO SCH (22:12)
[2022-01-30] MEDS: THIAMINE HCL 100 MG TABLET (FP) PO SCH (22:12)
[2022-01-31] MEDS: diazePAM 5 MG TABLET PO SCH ×4 (06:47→22:38)
[2022-01-31] MEDS: hydrOXYzine PAMOATE 25 MG CAPSULE (FP) PO SCH ×5 (06:48→22:38)
[2022-01-31] MEDS: PRENATAL VITAMINS W/ FOLIC ACID TABLET (FP) PO SCH (10:38)
[2022-01-31] MEDS: DIVALPROEX SODIUM 250 MG TABLET E.C. PO SCH (22:37)
[2022-01-31] MEDS: QUEtiapine FUMARATE 50 MG TABLET PO SCH (22:37)
[2022-01-31] MEDS: THIAMINE HCL 100 MG TABLET (FP) PO SCH (22:38)
[2022-01-31] MEDS: MELATONIN 5 MG TABLETS PO SCH (22:40)
[2022-02-01] MEDS: diazePAM 5 MG TABLET PO SCH ×3 (06:18→22:23)
[2022-02-01] MEDS: hydrOXYzine PAMOATE 25 MG CAPSULE (FP) PO SCH ×5 (06:18→22:24)
[2022-02-01] MEDS: PRENATAL VITAMINS W/ FOLIC ACID TABLET (FP) PO SCH (10:18)
[2022-02-01] MEDS: DIVALPROEX SODIUM 250 MG TABLET E.C. PO SCH ×2 (10:18→22:24)
[2022-02-01] MEDS: QUEtiapine FUMARATE 50 MG TABLET PO SCH (22:23)
[2022-02-01] MEDS: THIAMINE HCL 100 MG TABLET (FP) PO SCH (22:24)
[2022-02-01] MEDS: MELATONIN 5 MG TABLETS PO SCH (22:24)
[2022-02-02] MEDS: diazePAM 5 MG TABLET PO SCH ×2 (05:20→18:23)
[2022-02-02] MEDS: hydrOXYzine PAMOATE 25 MG CAPSULE (FP) PO SCH ×5 (05:20→22:31)
[2022-02-02] MEDS: PRENATAL VITAMINS W/ FOLIC ACID TABLET (FP) PO SCH (10:09)
[2022-02-02] MEDS: DIVALPROEX SODIUM 250 MG TABLET E.C. PO SCH (10:10)
[2022-02-02] MEDS: QUEtiapine FUMARATE 50 MG TABLET PO SCH (22:30)
[2022-02-02] MEDS: THIAMINE HCL 100 MG TABLET (FP) PO SCH (22:30)
[2022-02-02] MEDS: MELATONIN 5 MG TABLETS PO SCH (22:30)
[2022-02-02] MEDS: DIVALPROEX SODIUM 500 MG TABLET E.C. PO SCH (22:30)
[2022-02-03] MEDS: hydrOXYzine PAMOATE 25 MG CAPSULE (FP) PO SCH ×2 (05:14→10:09)
[2022-02-03] MEDS ORDERED: diazePAM 5 MG TABLET PO ONE (06:00)
[2022-02-03 10:01] VITALS: BP 118/63; PULSE 77; RESP 16; TEMP 98.1
[2022-02-03] MEDS: DIVALPROEX SODIUM 500 MG TABLET E.C. PO SCH (10:07)
[2022-02-03] MEDS: PRENATAL VITAMINS W/ FOLIC ACID TABLET (FP) PO SCH (10:07)
== END 2022-02-03 10:32 | disposition home or self-care (01) | DRG 774 ==
LOC: YASAS 09:43 → Y3N 12:24
PROVIDERS: ADMIT Allergy & Immunology; ATTEND Surgery
PROC: HZ2ZZZZ Detoxification Services for Substance Abuse Treatment (ICD-10-PCS; principal; 2022-01-30)
DX: F10.230 Alcohol dependence with withdrawal, uncomplicated (principal); F14.20 Cocaine dependence, uncomplicated; F12.20 Cannabis dependence, uncomplicated; F31.9 Bipolar disorder, unspecified; F19.282 Other psychoactive substance dependence with psychoactive substance-induced sleep disorder; G47.00 Insomnia, unspecified; Z87.891 Personal history of nicotine dependence; Z56.0 Unemployment, unspecified; Z59.00 Homelessness unspecified; Z91.19 Patient's noncompliance with other medical treatment and regimen; Z88.8 Allergy status to other drugs, medicaments and biological substances; Z88.6 Allergy status to analgesic agent
CPT/HCPCS: 36415; 80053; 80164; 85027; 86780; C9803-CS; U0003; U0005

== ENCOUNTER 2022-04-10 10:34 | Inpatient (IN) | payer OTHER ==
[2022-04-10 11:16] VITALS: BMI 32.5
[2022-04-10] MEDS ORDERED: LOPERAMIDE HCL 2 MG CAPSULE PO PRN (12:06)
[2022-04-10] MEDS ORDERED: NICOTINE 10 MG CARTRIDGE (INHALER) IH PRN (12:06)
[2022-04-10] MEDS ORDERED: hydrOXYzine PAMOATE 25 MG CAPSULE (FP) PO PRN (12:06)
[2022-04-10] MEDS ORDERED: BISMUTH SUBSALICYLATE 524 MG/30 ML PO PRN (12:06)
[2022-04-10] MEDS ORDERED: BENZOCAINE/MENTHOL (CHLORASEPTIC ) LOZENGE MM PRN (12:06)
[2022-04-10] MEDS ORDERED: ONDANSETRON *ODT* 4 MG TABLET SL PRN (12:06)
[2022-04-10] MEDS ORDERED: IBUPROFEN 400 MG TABLET (FP) PO PRN (12:06)
[2022-04-10] MEDS ORDERED: MAG HYDROX/AL HYDROX/SIMETH 30 ML UNIT-DOSE CUP PO PRN (12:06)
[2022-04-10] MEDS ORDERED: ACETAMINOPHEN 325 MG TABLET (FP) PO PRN ×2 (12:06)
[2022-04-10] MEDS ORDERED: DICYCLOMINE HCL 10 MG CAPSULE PO PRN (12:06)
[2022-04-10] MEDS ORDERED: MAGNESIUM CITRATE 300 ML BOTTLE PO PRN (12:06)
[2022-04-10] MEDS ORDERED: MAGNESIUM HYDROX 2400MG/30ML ORAL SUSPENSION 30 ML CUP PO PRN (12:06)
[2022-04-10] MEDS ORDERED: IBUPROFEN 600 MG TABLET (FP) PO PRN (12:06)
[2022-04-10] MEDS ORDERED: NALOXONE HCL (KLOXXADO) 8 MG SPRAY NS PRN (12:06)
[2022-04-10] MEDS: PANTOPRAZOLE 40 MG TABLET PO SCH (13:39)
[2022-04-10 15:37] LABS: HEMATOCRIT 38.4 % (35.4-49); HEMOGLOBIN 12.5 GM/dL (11.7-16.9); MCH 27.1 pg (25.7-33.7); MCHC 32.5 g/dl (32.0-35.9); MEAN CELL VOLUME 83.3 fl (80-96); MEAN PLT VOLUME 8.3 fl (7.5-11.1); PLATELET COUNT 311 10^3/uL (134-434); RBC 4.61 M/mm3 (4.00-5.60); RDW 13.9 % (11.9-15.9); WHITE BLOOD COUNT 6.8 K/mm3 (4.0-10.0)
[2022-04-10 15:43] LABS: BLOOD UREA NITROGEN 13.4 mg/dL (7-18); CALCIUM 8.6 mg/dL (8.5-10.1)
[2022-04-10 15:44] LABS: ALBUMIN 3.4 g/dl (3.4-5.0)
[2022-04-10 15:48] LABS: BILIRUBIN,TOTAL 0.2 mg/dL (0.2-1); TOT PROT 7.1 g/dl (6.4-8.2)
[2022-04-10] MEDS: THIAMINE HCL 100 MG TABLET (FP) PO SCH (22:33)
[2022-04-10] MEDS: MELATONIN 5 MG TABLETS PO SCH (22:33)
[2022-04-10] MEDS: METHOCARBAMOL 500 MG TABLET PO PRN (22:34)
[2022-04-11] MEDS ORDERED: diazePAM 5 MG TABLET PO PRN (09:17)
[2022-04-11] MEDS: METHOCARBAMOL 500 MG TABLET PO PRN (10:39)
[2022-04-11] MEDS: diazePAM 5 MG TABLET PO SCH ×3 (10:39→22:18)
[2022-04-11] MEDS: PRENATAL VITAMINS W/ FOLIC ACID TABLET (FP) PO SCH (10:39)
[2022-04-11] MEDS: PANTOPRAZOLE 40 MG TABLET PO SCH (10:39)
[2022-04-11] MEDS ORDERED: QUEtiapine FUMARATE 100 MG TABLET (FP) PO SCH (22:00)
[2022-04-11] MEDS: MELATONIN 5 MG TABLETS PO SCH (22:18)
[2022-04-11] MEDS: THIAMINE HCL 100 MG TABLET (FP) PO SCH (22:18)
[2022-04-12] MEDS: diazePAM 5 MG TABLET PO SCH ×2 (05:26→10:40)
[2022-04-12 05:48] VITALS: TEMP 97.7
[2022-04-12 09:58] VITALS: BP 119/65; PULSE 82; RESP 20
[2022-04-12] MEDS: PRENATAL VITAMINS W/ FOLIC ACID TABLET (FP) PO SCH (10:40)
[2022-04-12] MEDS: PANTOPRAZOLE 40 MG TABLET PO SCH (10:40)
[2022-04-13] MEDS ORDERED: diazePAM 5 MG TABLET PO SCH (06:00)
[2022-04-14] MEDS ORDERED: diazePAM 5 MG TABLET PO SCH (06:00)
[2022-04-15] MEDS ORDERED: diazePAM 5 MG TABLET PO ONE (06:00)
== END 2022-04-12 11:05 | disposition left against medical advice (07) | DRG 770 ==
LOC: YASAS 10:34 → UNDOADMIN 12:11 → Y3N 12:11 → UNDODISIN 04-12 11:05
PROVIDERS: ADMIT Allergy & Immunology; ATTEND Surgery
PROC: HZ2ZZZZ Detoxification Services for Substance Abuse Treatment (ICD-10-PCS; principal; 2022-04-10)
DX: F10.230 Alcohol dependence with withdrawal, uncomplicated (principal); F12.20 Cannabis dependence, uncomplicated; F17.210 Nicotine dependence, cigarettes, uncomplicated; F31.9 Bipolar disorder, unspecified; G47.00 Insomnia, unspecified; L30.9 Dermatitis, unspecified; Z88.6 Allergy status to analgesic agent; Z88.8 Allergy status to other drugs, medicaments and biological substances; Z91.199 Patient's noncompliance with other medical treatment and regimen due to unspecified reason
CPT/HCPCS: 36415; 80053; 85027; 86780; 87811; C9803-CS; U0003; U0005

== ENCOUNTER 2022-05-26 09:58 | Inpatient (IN) | payer OTHER ==
[2022-05-26 12:11] VITALS: BMI 29.9
[2022-05-26] MEDS ORDERED: ONDANSETRON *ODT* 4 MG TABLET SL PRN (12:26)
[2022-05-26] MEDS ORDERED: hydrOXYzine PAMOATE 25 MG CAPSULE (FP) PO PRN (12:26)
[2022-05-26] MEDS ORDERED: POLYETHYLENE GLYCOL (HEALTHYLAX) 3350 17 GM PACKET PO PRN (12:26)
[2022-05-26] MEDS ORDERED: BISMUTH SUBSALICYLATE 524 MG/30 ML PO PRN (12:26)
[2022-05-26] MEDS ORDERED: BENZOCAINE/MENTHOL (CHLORASEPTIC ) LOZENGE MM PRN (12:26)
[2022-05-26] MEDS ORDERED: NICOTINE 10 MG CARTRIDGE (INHALER) IH PRN (12:26)
[2022-05-26] MEDS ORDERED: NALOXONE HCL (KLOXXADO) 8 MG SPRAY NS PRN (12:26)
[2022-05-26] MEDS ORDERED: DICYCLOMINE HCL 10 MG CAPSULE PO PRN (12:26)
[2022-05-26] MEDS ORDERED: LOPERAMIDE HCL 2 MG CAPSULE PO PRN (12:26)
[2022-05-26] MEDS ORDERED: IBUPROFEN 600 MG TABLET (FP) PO PRN (12:26)
[2022-05-26] MEDS ORDERED: METHOCARBAMOL 500 MG TABLET PO PRN (12:26)
[2022-05-26] MEDS ORDERED: LORazepam 1 MG TABLET PO PRN (12:26)
[2022-05-26] MEDS ORDERED: IBUPROFEN 400 MG TABLET (FP) PO PRN (12:26)
[2022-05-26] MEDS ORDERED: MAG HYDROX/AL HYDROX/SIMETH 30 ML UNIT-DOSE CUP PO PRN (12:26)
[2022-05-26] MEDS ORDERED: MAGNESIUM HYDROX 2400MG/30ML ORAL SUSPENSION 30 ML CUP PO PRN (12:26)
[2022-05-26] MEDS: LORazepam 2 MG TABLET PO SCH ×2 (18:09→22:46)
[2022-05-26] MEDS: QUEtiapine FUMARATE 100 MG TABLET (FP) PO SCH (22:45)
[2022-05-26] MEDS: MELATONIN 5 MG TABLETS PO SCH (22:45)
[2022-05-26] MEDS: THIAMINE HCL 100 MG TABLET (FP) PO SCH (22:45)
[2022-05-27] MEDS: LORazepam 2 MG TABLET PO SCH ×4 (05:38→23:33)
[2022-05-27 09:45] LABS: HEMATOCRIT 41.8 % (35.4-49); HEMOGLOBIN 13.3 GM/dL (11.7-16.9); MCH 26.6 pg (25.7-33.7); MCHC 31.7 g/dl (32.0-35.9); MEAN CELL VOLUME 83.8 fl (80-96); MEAN PLT VOLUME 8.4 fl (7.5-11.1); PLATELET COUNT 225 10^3/uL (134-434); RBC 4.99 M/mm3 (4.00-5.60); RDW 14.3 % (11.9-15.9); WHITE BLOOD COUNT 4.9 K/mm3 (4.0-10.0)
[2022-05-27 10:06] LABS: ALBUMIN 3.3 g/dl (3.4-5.0); BLOOD UREA NITROGEN 9.6 mg/dL (7-18); CALCIUM 8.9 mg/dL (8.5-10.1)
[2022-05-27 10:10] LABS: BILIRUBIN,TOTAL 0.6 mg/dL (0.2-1); CREATININE 1.1 mg/dL (0.55-1.3); TOT PROT 6.8 g/dl (6.4-8.2)
[2022-05-27] MEDS: PRENATAL VITAMINS W/ FOLIC ACID TABLET (FP) PO SCH (10:53)
[2022-05-27] MEDS ORDERED: PNEUMOC 20-VAL CONJ-DIP CRM/PF 0.5 ML SYRINGE IM ONE (12:43)
[2022-05-27] MEDS ORDERED: FLU VACC QS2022-23(6MOS UP)/PF 60 MCG/0.5 ML SYRINGE IM ONE (12:43)
[2022-05-27] MEDS: MELATONIN 5 MG TABLETS PO SCH (23:32)
[2022-05-27] MEDS: QUEtiapine FUMARATE 100 MG TABLET (FP) PO SCH (23:33)
[2022-05-27] MEDS: THIAMINE HCL 100 MG TABLET (FP) PO SCH (23:34)
[2022-05-28] MEDS: LORazepam 1 MG TABLET PO SCH ×4 (05:40→22:14)
[2022-05-28 09:40] VITALS: RESP 18
[2022-05-28] MEDS: PRENATAL VITAMINS W/ FOLIC ACID TABLET (FP) PO SCH (10:29)
[2022-05-28] MEDS: MELATONIN 5 MG TABLETS PO SCH (22:12)
[2022-05-28] MEDS: THIAMINE HCL 100 MG TABLET (FP) PO SCH (22:12)
[2022-05-28] MEDS: QUEtiapine FUMARATE 100 MG TABLET (FP) PO SCH (22:12)
[2022-05-29] MEDS ORDERED: LORazepam 0.5 MG TABLET PO PRN
[2022-05-29] MEDS ORDERED: LORazepam 0.5 MG TABLET PO SCH (05:00)
[2022-05-29 05:50] VITALS: BP 129/79; PULSE 70; TEMP 98
[2022-05-30] MEDS ORDERED: LORazepam 0.5 MG TABLET PO ONE (05:00)
== END 2022-05-29 09:14 | disposition home or self-care (01) | DRG 774 ==
LOC: YASAS 09:58 → Y3N 12:38
PROVIDERS: ADMIT Allergy & Immunology; ATTEND Surgery
PROC: HZ2ZZZZ Detoxification Services for Substance Abuse Treatment (ICD-10-PCS; principal; 2022-05-26)
DX: F10.230 Alcohol dependence with withdrawal, uncomplicated (principal); F14.20 Cocaine dependence, uncomplicated; F12.20 Cannabis dependence, uncomplicated; F17.213 Nicotine dependence, cigarettes, with withdrawal; F31.9 Bipolar disorder, unspecified; F19.282 Other psychoactive substance dependence with psychoactive substance-induced sleep disorder; F41.9 Anxiety disorder, unspecified; K21.9 Gastro-esophageal reflux disease without esophagitis; L30.9 Dermatitis, unspecified; Z88.8 Allergy status to other drugs, medicaments and biological substances; Z59.02 Unsheltered homelessness
CPT/HCPCS: 36415; 80053; 85027; 86780; 90677; C9803-CS; G0008; Q2036; U0003; U0005

== ENCOUNTER 2022-07-02 11:09 | Inpatient (IN) | payer OTHER ==
[2022-07-02 12:17] VITALS: BMI 30.3
[2022-07-02] MEDS ORDERED: MAGNESIUM HYDROX 2400MG/30ML ORAL SUSPENSION 30 ML CUP PO PRN (13:13)
[2022-07-02] MEDS ORDERED: LOPERAMIDE HCL 2 MG CAPSULE PO PRN (13:13)
[2022-07-02] MEDS ORDERED: NALOXONE HCL (KLOXXADO) 8 MG SPRAY NS PRN (13:13)
[2022-07-02] MEDS ORDERED: ONDANSETRON *ODT* 4 MG TABLET SL PRN (13:13)
[2022-07-02] MEDS ORDERED: hydrOXYzine PAMOATE 25 MG CAPSULE (FP) PO PRN (13:13)
[2022-07-02] MEDS ORDERED: MAG HYDROX/AL HYDROX/SIMETH 30 ML UNIT-DOSE CUP PO PRN (13:13)
[2022-07-02] MEDS ORDERED: BENZOCAINE/MENTHOL (CHLORASEPTIC ) LOZENGE MM PRN (13:13)
[2022-07-02] MEDS ORDERED: IBUPROFEN 400 MG TABLET (FP) PO PRN (13:13)
[2022-07-02] MEDS ORDERED: ACETAMINOPHEN 325 MG TABLET (FP) PO PRN ×2 (13:13)
[2022-07-02] MEDS ORDERED: BISMUTH SUBSALICYLATE 524 MG/30 ML PO PRN (13:13)
[2022-07-02] MEDS ORDERED: IBUPROFEN 600 MG TABLET (FP) PO PRN (13:13)
[2022-07-02] MEDS ORDERED: POLYETHYLENE GLYCOL (HEALTHYLAX) 3350 17 GM PACKET PO PRN (13:13)
[2022-07-02] MEDS ORDERED: DICYCLOMINE HCL 10 MG CAPSULE PO PRN (13:13)
[2022-07-02] MEDS ORDERED: diazePAM 5 MG TABLET PO PRN (13:13)
[2022-07-02] MEDS: PRENATAL VITAMINS W/ FOLIC ACID TABLET (FP) PO SCH (14:53)
[2022-07-02] MEDS: diazePAM 5 MG TABLET PO SCH ×2 (17:30→22:21)
[2022-07-02] MEDS: VITAMINS A AND D TOPICAL OINTMENT 60 GM TUBE TP SCH ×2 (20:02→23:12)
[2022-07-02] MEDS: METHOCARBAMOL 500 MG TABLET PO PRN (22:20)
[2022-07-02] MEDS: THIAMINE HCL 100 MG TABLET (FP) PO SCH (22:20)
[2022-07-02] MEDS: MELATONIN 5 MG TABLETS PO SCH ×2 (22:20→22:21)
[2022-07-02] MEDS: QUEtiapine FUMARATE 100 MG TABLET (FP) PO SCH (22:32)
[2022-07-02] MEDS: DIVALPROEX SODIUM 250 MG TABLET E.C. PO SCH (22:32)
[2022-07-03] MEDS: diazePAM 5 MG TABLET PO SCH ×4 (05:47→22:19)
[2022-07-03] MEDS: VITAMINS A AND D TOPICAL OINTMENT 60 GM TUBE TP SCH ×3 (05:48→17:37)
[2022-07-03] MEDS: DIVALPROEX SODIUM 250 MG TABLET E.C. PO SCH ×2 (10:11→22:18)
[2022-07-03] MEDS: PRENATAL VITAMINS W/ FOLIC ACID TABLET (FP) PO SCH (10:11)
[2022-07-03 12:04] LABS: HEMATOCRIT 39.7 % (35.4-49); HEMOGLOBIN 12.9 GM/dL (11.7-16.9); MCH 27.1 pg (25.7-33.7); MCHC 32.6 g/dl (32.0-35.9); MEAN PLT VOLUME 8.2 fl (7.5-11.1); PLATELET COUNT 241 10^3/uL (134-434); RBC 4.78 M/mm3 (4.00-5.60); RDW 14.5 % (11.9-15.9); WHITE BLOOD COUNT 4.3 K/mm3 (4.0-10.0)
[2022-07-03 12:18] LABS: ALBUMIN 3.1 g/dl (3.4-5.0)
[2022-07-03 12:19] LABS: CALCIUM 8.6 mg/dL (8.5-10.1)
[2022-07-03 12:23] LABS: CREATININE 1.1 mg/dL (0.55-1.3)
[2022-07-03 12:24] LABS: BILIRUBIN,TOTAL 0.2 mg/dL (0.2-1); TOT PROT 6.8 g/dl (6.4-8.2)
[2022-07-03] MEDS: LACTULOSE 20 GM/30 ML UDC (FOR ORAL USE ONLY) PO SCH ×2 (14:34→22:17)
[2022-07-03] MEDS: MELATONIN 5 MG TABLETS PO SCH (22:18)
[2022-07-03] MEDS: QUEtiapine FUMARATE 100 MG TABLET (FP) PO SCH (22:18)
[2022-07-03] MEDS: METHOCARBAMOL 500 MG TABLET PO PRN (22:18)
[2022-07-03] MEDS: THIAMINE HCL 100 MG TABLET (FP) PO SCH (22:18)
[2022-07-04] MEDS: VITAMINS A AND D TOPICAL OINTMENT 60 GM TUBE TP SCH ×4 (00:50→17:31)
[2022-07-04] MEDS: LACTULOSE 20 GM/30 ML UDC (FOR ORAL USE ONLY) PO SCH ×3 (05:44→22:34)
[2022-07-04] MEDS: diazePAM 5 MG TABLET PO SCH ×3 (05:45→22:35)
[2022-07-04] MEDS: DIVALPROEX SODIUM 250 MG TABLET E.C. PO SCH ×2 (10:42→22:34)
[2022-07-04] MEDS: PRENATAL VITAMINS W/ FOLIC ACID TABLET (FP) PO SCH (10:42)
[2022-07-04] MEDS: METHOCARBAMOL 500 MG TABLET PO PRN (17:29)
[2022-07-04] MEDS: THIAMINE HCL 100 MG TABLET (FP) PO SCH (22:34)
[2022-07-04] MEDS: QUEtiapine FUMARATE 100 MG TABLET (FP) PO SCH (22:34)
[2022-07-04] MEDS: MELATONIN 5 MG TABLETS PO SCH (22:34)
[2022-07-05] MEDS: VITAMINS A AND D TOPICAL OINTMENT 60 GM TUBE TP SCH ×4 (00:44→17:14)
[2022-07-05] MEDS: LACTULOSE 20 GM/30 ML UDC (FOR ORAL USE ONLY) PO SCH ×3 (05:37→22:30)
[2022-07-05] MEDS: diazePAM 5 MG TABLET PO SCH ×2 (05:38→17:15)
[2022-07-05] MEDS: DIVALPROEX SODIUM 250 MG TABLET E.C. PO SCH ×2 (10:10→22:28)
[2022-07-05] MEDS: PRENATAL VITAMINS W/ FOLIC ACID TABLET (FP) PO SCH (10:10)
[2022-07-05] MEDS: MELATONIN 5 MG TABLETS PO SCH (22:28)
[2022-07-05] MEDS: METHOCARBAMOL 500 MG TABLET PO PRN (22:28)
[2022-07-05] MEDS: THIAMINE HCL 100 MG TABLET (FP) PO SCH (22:29)
[2022-07-05] MEDS: QUEtiapine FUMARATE 100 MG TABLET (FP) PO SCH (22:29)
[2022-07-06] MEDS: VITAMINS A AND D TOPICAL OINTMENT 60 GM TUBE TP SCH ×2 (00:22→05:26)
[2022-07-06] MEDS: LACTULOSE 20 GM/30 ML UDC (FOR ORAL USE ONLY) PO SCH (05:25)
[2022-07-06] MEDS ORDERED: diazePAM 5 MG TABLET PO ONE (06:00)
[2022-07-06 06:23] VITALS: TEMP 97.1
[2022-07-06 09:12] VITALS: BP 115/72; PULSE 97; RESP 18
[2022-07-06] MEDS: PRENATAL VITAMINS W/ FOLIC ACID TABLET (FP) PO SCH (10:09)
[2022-07-06] MEDS: DIVALPROEX SODIUM 250 MG TABLET E.C. PO SCH (10:10)
== END 2022-07-06 13:08 | disposition other institution (70) | DRG 774 ==
LOC: YASAS 11:09 → Y3N 13:41
PROVIDERS: ADMIT Allergy & Immunology; ATTEND Surgery
PROC: HZ2ZZZZ Detoxification Services for Substance Abuse Treatment (ICD-10-PCS; principal; 2022-07-02)
DX: F10.230 Alcohol dependence with withdrawal, uncomplicated (principal); F14.20 Cocaine dependence, uncomplicated; F12.20 Cannabis dependence, uncomplicated; F31.9 Bipolar disorder, unspecified; F41.9 Anxiety disorder, unspecified; E72.20 Disorder of urea cycle metabolism, unspecified; G47.00 Insomnia, unspecified; K21.9 Gastro-esophageal reflux disease without esophagitis; L30.9 Dermatitis, unspecified; Z87.891 Personal history of nicotine dependence; Z59.01 Sheltered homelessness; Z56.0 Unemployment, unspecified; Z88.6 Allergy status to analgesic agent; Z88.8 Allergy status to other drugs, medicaments and biological substances
CPT/HCPCS: 36415; 80053; 80164; 82140; 85027; 86780; C9803-CS; U0003; U0005

== ENCOUNTER 2022-07-06 12:39 | Inpatient (IN) | payer OTHER ==
[2022-07-06] MEDS ORDERED: IBUPROFEN 400 MG TABLET (FP) PO PRN (14:49)
[2022-07-06] MEDS ORDERED: hydrOXYzine PAMOATE 25 MG CAPSULE (FP) PO PRN (14:49)
[2022-07-06] MEDS ORDERED: LOPERAMIDE HCL 2 MG CAPSULE PO PRN (14:49)
[2022-07-06] MEDS ORDERED: guaiFENesin 200 MG/10 ML 10 ML UNIT-DOSE CUPS PO PRN (14:49)
[2022-07-06] MEDS ORDERED: POLYETHYLENE GLYCOL (HEALTHYLAX) 3350 17 GM PACKET PO PRN (14:49)
[2022-07-06] MEDS ORDERED: P-EPHED 60MG/TRIPROLIDI 2.5MG TABLET PO PRN (14:49)
[2022-07-06] MEDS ORDERED: BENZOCAINE/MENTHOL (CHLORASEPTIC ) LOZENGE MM PRN (14:49)
[2022-07-06] MEDS ORDERED: NICOTINE 10 MG CARTRIDGE (INHALER) IH PRN (14:49)
[2022-07-06] MEDS ORDERED: ACETAMINOPHEN 325 MG TABLET (FP) PO PRN (14:49)
[2022-07-06] MEDS ORDERED: MAG HYDROX/AL HYDROX/SIMETH 30 ML UNIT-DOSE CUP PO PRN (14:49)
[2022-07-06] MEDS ORDERED: MAGNESIUM HYDROX 2400MG/30ML ORAL SUSPENSION 30 ML CUP PO PRN (14:49)
[2022-07-06] MEDS: VITAMINS A AND D TOPICAL OINTMENT 60 GM TUBE TP SCH ×2 (17:15→23:57)
[2022-07-06] MEDS: MELATONIN 5 MG TABLETS PO SCH (21:57)
[2022-07-06] MEDS: THIAMINE HCL 100 MG TABLET (FP) PO SCH (21:57)
[2022-07-07] MEDS: VITAMINS A AND D TOPICAL OINTMENT 60 GM TUBE TP SCH ×3 (06:20→21:20)
[2022-07-07] MEDS: PRENATAL VITAMINS W/ FOLIC ACID TABLET (FP) PO SCH (09:44)
[2022-07-07] MEDS: NICOTINE 7 MG/24 HOURS TOPICAL PATCH TD SCH (09:44)
[2022-07-07] MEDS: MELATONIN 5 MG TABLETS PO SCH (21:20)
[2022-07-07] MEDS: THIAMINE HCL 100 MG TABLET (FP) PO SCH (21:20)
[2022-07-08] MEDS: VITAMINS A AND D TOPICAL OINTMENT 60 GM TUBE TP SCH ×4 (01:22→18:58)
[2022-07-08] MEDS: NICOTINE 7 MG/24 HOURS TOPICAL PATCH TD SCH (09:13)
[2022-07-08] MEDS: PRENATAL VITAMINS W/ FOLIC ACID TABLET (FP) PO SCH (09:13)
[2022-07-08] MEDS: THIAMINE HCL 100 MG TABLET (FP) PO SCH (21:24)
[2022-07-08] MEDS: MELATONIN 5 MG TABLETS PO SCH (21:24)
[2022-07-09] MEDS: VITAMINS A AND D TOPICAL OINTMENT 60 GM TUBE TP SCH ×4 (00:30→18:17)
[2022-07-09] MEDS ORDERED: NICOTINE 7 MG/24 HOURS TOPICAL PATCH TD PRN (09:26)
[2022-07-09] MEDS: PRENATAL VITAMINS W/ FOLIC ACID TABLET (FP) PO SCH (10:24)
[2022-07-09 20:05] LABS: HIV INTERPRETATION PRESUMPTIVE POSITIVE (NEGATIVE)
[2022-07-09] MEDS: MELATONIN 5 MG TABLETS PO SCH (21:22)
[2022-07-09] MEDS: THIAMINE HCL 100 MG TABLET (FP) PO SCH (21:22)
[2022-07-10] MEDS: VITAMINS A AND D TOPICAL OINTMENT 60 GM TUBE TP SCH ×4 (01:03→18:12)
[2022-07-10] MEDS: PRENATAL VITAMINS W/ FOLIC ACID TABLET (FP) PO SCH (10:03)
[2022-07-10] MEDS: LACTULOSE 20 GM/30 ML UDC (FOR ORAL USE ONLY) PO PRN ×2 (14:51→21:05)
[2022-07-10] MEDS: MELATONIN 5 MG TABLETS PO SCH (21:05)
[2022-07-10] MEDS: THIAMINE HCL 100 MG TABLET (FP) PO SCH (21:05)
[2022-07-11] MEDS: VITAMINS A AND D TOPICAL OINTMENT 60 GM TUBE TP SCH ×4 (01:10→18:30)
[2022-07-11] MEDS: PRENATAL VITAMINS W/ FOLIC ACID TABLET (FP) PO SCH (09:53)
[2022-07-11] MEDS: LACTULOSE 20 GM/30 ML UDC (FOR ORAL USE ONLY) PO SCH ×2 (13:55→21:13)
[2022-07-11] MEDS: THIAMINE HCL 100 MG TABLET (FP) PO SCH (21:12)
[2022-07-11] MEDS: MELATONIN 5 MG TABLETS PO SCH (21:12)
[2022-07-11] MEDS: QUEtiapine FUMARATE 200 MG TABLET PO SCH (21:13)
[2022-07-11] MEDS: DIVALPROEX SODIUM 250 MG TABLET E.C. PO SCH (21:13)
[2022-07-12] MEDS: VITAMINS A AND D TOPICAL OINTMENT 60 GM TUBE TP SCH ×4 (01:37→19:06)
[2022-07-12] MEDS: LACTULOSE 20 GM/30 ML UDC (FOR ORAL USE ONLY) PO SCH ×3 (07:24→21:13)
[2022-07-12] MEDS: PRENATAL VITAMINS W/ FOLIC ACID TABLET (FP) PO SCH (09:40)
[2022-07-12] MEDS: THIAMINE HCL 100 MG TABLET (FP) PO SCH (21:12)
[2022-07-12] MEDS: MELATONIN 5 MG TABLETS PO SCH (21:12)
[2022-07-12] MEDS: QUEtiapine FUMARATE 200 MG TABLET PO SCH (21:13)
[2022-07-12] MEDS: DIVALPROEX SODIUM 250 MG TABLET E.C. PO SCH (21:13)
[2022-07-13] MEDS: VITAMINS A AND D TOPICAL OINTMENT 60 GM TUBE TP SCH ×3 (01:24→12:01)
[2022-07-13] MEDS: LACTULOSE 20 GM/30 ML UDC (FOR ORAL USE ONLY) PO SCH (06:15)
[2022-07-13 07:04] VITALS: BP 122/73; PULSE 90; RESP 17; TEMP 97.8
[2022-07-13] MEDS: PRENATAL VITAMINS W/ FOLIC ACID TABLET (FP) PO SCH (09:48)
== END 2022-07-13 13:09 | disposition home or self-care (01) | DRG 772 ==
LOC: YASAS 12:39 → Y3E 12:40
PROVIDERS: ADMIT Allergy & Immunology; ATTEND Psychiatry & Neurology Pain Medicine
PROC: HZ42ZZZ Group Counseling for Substance Abuse Treatment, Cognitive-Behavioral (ICD-10-PCS; principal; 2022-07-06)
DX: F10.20 Alcohol dependence, uncomplicated (principal); F14.20 Cocaine dependence, uncomplicated; F12.20 Cannabis dependence, uncomplicated; F19.282 Other psychoactive substance dependence with psychoactive substance-induced sleep disorder; F31.9 Bipolar disorder, unspecified; E72.20 Disorder of urea cycle metabolism, unspecified; G47.00 Insomnia, unspecified; K21.9 Gastro-esophageal reflux disease without esophagitis; L30.9 Dermatitis, unspecified; Z87.891 Personal history of nicotine dependence; Z59.02 Unsheltered homelessness; Z88.8 Allergy status to other drugs, medicaments and biological substances
CPT/HCPCS: 36415; 82140; 86803; 87389

== ENCOUNTER 2022-10-19 11:06 | Inpatient (IN) | payer OTHER ==
[2022-10-19 11:44] VITALS: BMI 30.2
[2022-10-19] MEDS ORDERED: IBUPROFEN 400 MG TABLET (FP) PO PRN (12:48)
[2022-10-19] MEDS ORDERED: MAG HYDROX/AL HYDROX/SIMETH 30 ML UNIT-DOSE CUP PO PRN (12:48)
[2022-10-19] MEDS ORDERED: BENZOCAINE/MENTHOL (CHLORASEPTIC ) LOZENGE MM PRN (12:48)
[2022-10-19] MEDS ORDERED: hydrOXYzine PAMOATE 25 MG CAPSULE (FP) PO PRN (12:48)
[2022-10-19] MEDS ORDERED: POLYETHYLENE GLYCOL (HEALTHYLAX) 3350 17 GM PACKET PO PRN (12:48)
[2022-10-19] MEDS ORDERED: BENZONATATE 200 MG CAPSULE PO PRN (12:48)
[2022-10-19] MEDS ORDERED: guaiFENesin 600 MG TABLET.ER (FP) PO PRN (12:48)
[2022-10-19] MEDS ORDERED: ACETAMINOPHEN 325 MG TABLET (FP) PO PRN (12:48)
[2022-10-19] MEDS ORDERED: NICOTINE 10 MG CARTRIDGE (INHALER) IH PRN (12:48)
[2022-10-19] MEDS ORDERED: NALOXONE HCL 0.4 MG/ML VIAL IM PRN (12:48)
[2022-10-19] MEDS ORDERED: MAGNESIUM HYDROX 2400MG/30ML ORAL SUSPENSION 30 ML CUP PO PRN (12:48)
[2022-10-19] MEDS ORDERED: BISMUTH SUBSALICYLATE 524 MG/30 ML PO PRN (12:48)
[2022-10-19] MEDS ORDERED: LOPERAMIDE HCL 2 MG CAPSULE PO PRN (12:48)
[2022-10-19] MEDS ORDERED: ONDANSETRON *ODT* 4 MG TABLET SL PRN (12:48)
[2022-10-19] MEDS ORDERED: LORazepam 1 MG TABLET PO PRN (12:48)
[2022-10-19] MEDS ORDERED: DICYCLOMINE HCL 10 MG CAPSULE PO PRN (12:48)
[2022-10-19] MEDS ORDERED: METHOCARBAMOL 500 MG TABLET PO PRN (12:48)
[2022-10-19] MEDS ORDERED: NALOXONE HCL (KLOXXADO) 8 MG SPRAY NS PRN (12:48)
[2022-10-19] MEDS: NICOTINE 14 MG/24 HOURS TOPICAL PATCH TD SCH (14:14)
[2022-10-19] MEDS: PRENATAL VITAMINS W/ FOLIC ACID TABLET (FP) PO SCH (14:14)
[2022-10-19] MEDS ORDERED: NICOTINE 14 MG/24 HOURS TOPICAL PATCH TD ONE (14:15)
[2022-10-19 16:33] LABS: HEMATOCRIT 35.3 % (35.4-49); HEMOGLOBIN 11.9 GM/dL (11.7-16.9); MCH 27.6 pg (25.7-33.7); MCHC 33.6 g/dl (32.0-35.9); MEAN CELL VOLUME 81.9 fl (80-96); MEAN PLT VOLUME 8.8 fl (7.5-11.1); PLATELET COUNT 219 10^3/uL (134-434); RBC 4.31 M/mm3 (4.00-5.60); RDW 13.2 % (11.9-15.9); WHITE BLOOD COUNT 3.6 K/mm3 (4.0-10.0)
[2022-10-19 16:38] LABS: CALCIUM 8.4 mg/dL (8.5-10.1)
[2022-10-19 16:40] LABS: ALBUMIN 3.1 g/dl (3.4-5.0); BLOOD UREA NITROGEN 12.2 mg/dL (7-18)
[2022-10-19 16:42] LABS: CREATININE 0.9 mg/dL (0.55-1.3)
[2022-10-19 16:44] LABS: BILIRUBIN,TOTAL 0.5 mg/dL (0.2-1)
[2022-10-19] MEDS: LORazepam 2 MG TABLET PO SCH ×2 (17:28→22:20)
[2022-10-19] MEDS: MELATONIN 5 MG TABLETS PO SCH (22:20)
[2022-10-19] MEDS: THIAMINE HCL 100 MG TABLET (FP) PO SCH (22:20)
[2022-10-19] MEDS: QUEtiapine FUMARATE 100 MG TABLET (FP) PO SCH (22:20)
[2022-10-20] MEDS: LORazepam 2 MG TABLET PO SCH ×4 (05:48→22:32)
[2022-10-20] MEDS: PRENATAL VITAMINS W/ FOLIC ACID TABLET (FP) PO SCH (10:04)
[2022-10-20] MEDS: IBUPROFEN 600 MG TABLET (FP) PO PRN (10:05)
[2022-10-20] MEDS: NICOTINE 14 MG/24 HOURS TOPICAL PATCH TD SCH (10:06)
[2022-10-20] MEDS: QUEtiapine FUMARATE 100 MG TABLET (FP) PO SCH (22:31)
[2022-10-20] MEDS: THIAMINE HCL 100 MG TABLET (FP) PO SCH (22:31)
[2022-10-20] MEDS: MELATONIN 5 MG TABLETS PO SCH (22:31)
[2022-10-21] MEDS: LORazepam 1 MG TABLET PO SCH ×4 (05:29→22:19)
[2022-10-21] MEDS: IBUPROFEN 600 MG TABLET (FP) PO PRN (10:32)
[2022-10-21] MEDS: PRENATAL VITAMINS W/ FOLIC ACID TABLET (FP) PO SCH (10:34)
[2022-10-21] MEDS: NICOTINE 14 MG/24 HOURS TOPICAL PATCH TD SCH (10:34)
[2022-10-21] MEDS: THIAMINE HCL 100 MG TABLET (FP) PO SCH (22:19)
[2022-10-21] MEDS: MELATONIN 5 MG TABLETS PO SCH (22:19)
[2022-10-21] MEDS: QUEtiapine FUMARATE 100 MG TABLET (FP) PO SCH (22:20)
[2022-10-22] MEDS ORDERED: LORazepam 0.5 MG TABLET PO PRN
[2022-10-22] MEDS: LORazepam 0.5 MG TABLET PO SCH ×4 (05:24→22:13)
[2022-10-22] MEDS: PRENATAL VITAMINS W/ FOLIC ACID TABLET (FP) PO SCH (10:09)
[2022-10-22] MEDS: NICOTINE 14 MG/24 HOURS TOPICAL PATCH TD SCH (10:10)
[2022-10-22 13:03] VITALS: RESP 18
[2022-10-22] MEDS: THIAMINE HCL 100 MG TABLET (FP) PO SCH (22:13)
[2022-10-22] MEDS: QUEtiapine FUMARATE 100 MG TABLET (FP) PO SCH (22:13)
[2022-10-22] MEDS: MELATONIN 5 MG TABLETS PO SCH (22:13)
[2022-10-23] MEDS ORDERED: LORazepam 0.5 MG TABLET PO ONE (05:00)
[2022-10-23 05:52] VITALS: BP 114/66; PULSE 68; TEMP 97.6
== END 2022-10-23 08:58 | disposition home or self-care (01) | DRG 774 ==
LOC: YASAS 11:06 → Y6N 13:30
PROVIDERS: ADMIT Allergy & Immunology; ATTEND Surgery
PROC: HZ2ZZZZ Detoxification Services for Substance Abuse Treatment (ICD-10-PCS; principal; 2022-10-19)
DX: F10.230 Alcohol dependence with withdrawal, uncomplicated (principal); F14.20 Cocaine dependence, uncomplicated; F12.20 Cannabis dependence, uncomplicated; F17.210 Nicotine dependence, cigarettes, uncomplicated; F31.9 Bipolar disorder, unspecified; G47.00 Insomnia, unspecified; K21.9 Gastro-esophageal reflux disease without esophagitis; L30.9 Dermatitis, unspecified; Z56.0 Unemployment, unspecified; Z59.01 Sheltered homelessness; Z88.6 Allergy status to analgesic agent; Z88.8 Allergy status to other drugs, medicaments and biological substances
CPT/HCPCS: 36415; 80053; 82140; 85027; 86780; 87811; C9803-CS; Q0162; U0003; U0005

== ENCOUNTER 2022-11-07 11:31 | Inpatient (IN) | payer OTHER ==
[2022-11-07 11:57] VITALS: BMI 30.1
[2022-11-07] MEDS ORDERED: IBUPROFEN 400 MG TABLET (FP) PO PRN (12:40)
[2022-11-07] MEDS ORDERED: METHOCARBAMOL 500 MG TABLET PO PRN (12:40)
[2022-11-07] MEDS ORDERED: BENZONATATE 200 MG CAPSULE PO PRN (12:40)
[2022-11-07] MEDS ORDERED: ONDANSETRON *ODT* 4 MG TABLET SL PRN (12:40)
[2022-11-07] MEDS ORDERED: BENZOCAINE/MENTHOL (CHLORASEPTIC ) LOZENGE MM PRN (12:40)
[2022-11-07] MEDS ORDERED: MAG HYDROX/AL HYDROX/SIMETH 30 ML UNIT-DOSE CUP PO PRN (12:40)
[2022-11-07] MEDS ORDERED: NALOXONE HCL 0.4 MG/ML VIAL IM PRN (12:40)
[2022-11-07] MEDS ORDERED: ACETAMINOPHEN 325 MG TABLET (FP) PO PRN (12:40)
[2022-11-07] MEDS ORDERED: diazePAM 5 MG TABLET PO PRN (12:40)
[2022-11-07] MEDS ORDERED: hydrOXYzine PAMOATE 25 MG CAPSULE (FP) PO PRN (12:40)
[2022-11-07] MEDS ORDERED: LOPERAMIDE HCL 2 MG CAPSULE PO PRN (12:40)
[2022-11-07] MEDS ORDERED: POLYETHYLENE GLYCOL (HEALTHYLAX) 3350 17 GM PACKET PO PRN (12:40)
[2022-11-07] MEDS ORDERED: NALOXONE HCL (KLOXXADO) 8 MG SPRAY NS PRN (12:40)
[2022-11-07] MEDS ORDERED: DICYCLOMINE HCL 10 MG CAPSULE PO PRN (12:40)
[2022-11-07] MEDS ORDERED: IBUPROFEN 600 MG TABLET (FP) PO PRN (12:40)
[2022-11-07] MEDS ORDERED: guaiFENesin 600 MG TABLET.ER (FP) PO PRN (12:40)
[2022-11-07] MEDS ORDERED: MAGNESIUM HYDROX 2400MG/30ML ORAL SUSPENSION 30 ML CUP PO PRN (12:40)
[2022-11-07] MEDS ORDERED: BISMUTH SUBSALICYLATE 524 MG/30 ML PO PRN (12:40)
[2022-11-07] MEDS: PRENATAL VITAMINS W/ FOLIC ACID TABLET (FP) PO SCH (13:11)
[2022-11-07 16:02] LABS: HEMATOCRIT 40.1 % (35.4-49); HEMOGLOBIN 13.3 GM/dL (11.7-16.9); MCHC 33.1 g/dl (32.0-35.9); MEAN CELL VOLUME 81.7 fl (80-96); MEAN PLT VOLUME 8.2 fl (7.5-11.1); PLATELET COUNT 238 10^3/uL (134-434); RBC 4.91 M/mm3 (4.00-5.60); RDW 13.6 % (11.9-15.9); WHITE BLOOD COUNT 4.4 K/mm3 (4.0-10.0)
[2022-11-07 16:18] LABS: BLOOD UREA NITROGEN 13.8 mg/dL (7-18); CALCIUM 9.1 mg/dL (8.5-10.1)
[2022-11-07 16:20] LABS: ALBUMIN 3.8 g/dl (3.4-5.0)
[2022-11-07 16:23] LABS: BILIRUBIN,TOTAL 0.4 mg/dL (0.2-1); CREATININE 1.1 mg/dL (0.55-1.3); TOT PROT 8.1 g/dl (6.4-8.2)
[2022-11-07] MEDS: diazePAM 5 MG TABLET PO SCH ×2 (17:39→22:30)
[2022-11-07] MEDS ORDERED: MELATONIN 5 MG TABLETS PO SCH (22:00)
[2022-11-07] MEDS ORDERED: QUEtiapine FUMARATE 100 MG TABLET (FP) PO SCH (22:00)
[2022-11-07] MEDS ORDERED: THIAMINE HCL 100 MG TABLET (FP) PO SCH (22:00)
[2022-11-08] MEDS: diazePAM 5 MG TABLET PO SCH ×2 (05:39→10:19)
[2022-11-08 09:24] VITALS: BP 108/62; PULSE 90; RESP 16; TEMP 97.9
[2022-11-08] MEDS: PRENATAL VITAMINS W/ FOLIC ACID TABLET (FP) PO SCH (10:18)
[2022-11-09] MEDS ORDERED: diazePAM 5 MG TABLET PO SCH (06:00)
[2022-11-10] MEDS ORDERED: diazePAM 5 MG TABLET PO SCH (06:00)
[2022-11-11] MEDS ORDERED: diazePAM 5 MG TABLET PO ONE (06:00)
== END 2022-11-08 10:58 | disposition home or self-care (01) | DRG 774 ==
LOC: YASAS 11:31 → Y3N 12:57
PROVIDERS: ADMIT Allergy & Immunology; ATTEND Surgery
PROC: HZ2ZZZZ Detoxification Services for Substance Abuse Treatment (ICD-10-PCS; principal; 2022-11-07)
DX: F10.230 Alcohol dependence with withdrawal, uncomplicated (principal); F14.20 Cocaine dependence, uncomplicated; F12.20 Cannabis dependence, uncomplicated; F17.210 Nicotine dependence, cigarettes, uncomplicated; F31.9 Bipolar disorder, unspecified; E72.20 Disorder of urea cycle metabolism, unspecified; G47.00 Insomnia, unspecified; K21.9 Gastro-esophageal reflux disease without esophagitis; L30.9 Dermatitis, unspecified; Z88.6 Allergy status to analgesic agent; Z88.8 Allergy status to other drugs, medicaments and biological substances
CPT/HCPCS: 36415; 80053; 82140; 85027; 86780; 87811; C9803-CS; U0003; U0005

== ENCOUNTER 2022-12-04 10:55 | Inpatient (IN) | payer OTHER ==
[2022-12-04 12:04] VITALS: BMI 29.7
[2022-12-04] MEDS ORDERED: MAGNESIUM HYDROX 2400MG/30ML ORAL SUSPENSION 30 ML CUP PO PRN (12:52)
[2022-12-04] MEDS ORDERED: BISMUTH SUBSALICYLATE 262 MG/15 ML BTL PO PRN (12:52)
[2022-12-04] MEDS ORDERED: ONDANSETRON *ODT* 4 MG TABLET SL PRN (12:52)
[2022-12-04] MEDS ORDERED: BENZONATATE 200 MG CAPSULE PO PRN (12:52)
[2022-12-04] MEDS ORDERED: NALOXONE HCL 0.4 MG/ML VIAL IM PRN (12:52)
[2022-12-04] MEDS ORDERED: POLYETHYLENE GLYCOL (HEALTHYLAX) 3350 17 GM PACKET PO PRN (12:52)
[2022-12-04] MEDS ORDERED: DICYCLOMINE HCL 10 MG CAPSULE PO PRN (12:52)
[2022-12-04] MEDS ORDERED: ACETAMINOPHEN 325 MG TABLET (FP) PO PRN (12:52)
[2022-12-04] MEDS ORDERED: BENZOCAINE/MENTHOL (CHLORASEPTIC ) LOZENGE MM PRN (12:52)
[2022-12-04] MEDS ORDERED: IBUPROFEN 400 MG TABLET (FP) PO PRN (12:52)
[2022-12-04] MEDS ORDERED: LOPERAMIDE HCL 2 MG CAPSULE PO PRN (12:52)
[2022-12-04] MEDS ORDERED: guaiFENesin 600 MG TABLET.ER (FP) PO PRN (12:52)
[2022-12-04] MEDS ORDERED: NICOTINE 10 MG CARTRIDGE (INHALER) IH PRN (12:52)
[2022-12-04] MEDS ORDERED: MAG HYDROX/AL HYDROX/SIMETH 30 ML UNIT-DOSE CUP PO PRN (12:52)
[2022-12-04] MEDS ORDERED: LORazepam 1 MG TABLET PO PRN (12:52)
[2022-12-04] MEDS ORDERED: IBUPROFEN 600 MG TABLET (FP) PO PRN (12:52)
[2022-12-04] MEDS ORDERED: NALOXONE HCL (KLOXXADO) 8 MG SPRAY NS PRN (12:52)
[2022-12-04] MEDS ORDERED: ALBUTEROL SO4 HFA INHALER IH PRN (13:28)
[2022-12-04] MEDS: PRENATAL VITAMINS W/ FOLIC ACID TABLET (FP) PO SCH (14:48)
[2022-12-04] MEDS: NICOTINE 7 MG/24 HOURS TOPICAL PATCH TD SCH (14:48)
[2022-12-04] MEDS ORDERED: NICOTINE 7 MG/24 HOURS TOPICAL PATCH TD ONE (15:10)
[2022-12-04] MEDS ORDERED: PRENATAL VITAMINS W/ FOLIC ACID TABLET (FP) PO ONE (15:11)
[2022-12-04] MEDS: LORazepam 2 MG TABLET PO SCH ×2 (17:23→22:22)
[2022-12-04 17:42] LABS: POTASSIUM 3.9 mmol/L (3.5-5.1)
[2022-12-04 17:44] LABS: HEMOGLOBIN 11.6 GM/dL (11.7-16.9); MCH 26.6 pg (25.7-33.7); MCHC 32.2 g/dl (32.0-35.9); MEAN CELL VOLUME 82.5 fl (80-96); MEAN PLT VOLUME 8.7 fl (7.5-11.1); PLATELET COUNT 244 10^3/uL (134-434); RBC 4.36 M/mm3 (4.00-5.60); RDW 13.2 % (11.9-15.9); WHITE BLOOD COUNT 3.7 K/mm3 (4.0-10.0)
[2022-12-04 17:45] LABS: ALBUMIN 3.2 g/dl (3.4-5.0); BLOOD UREA NITROGEN 19.4 mg/dL (7-18); CALCIUM 8.4 mg/dL (8.5-10.1)
[2022-12-04 17:48] LABS: CREATININE 1.1 mg/dL (0.55-1.3)
[2022-12-04 17:52] LABS: BILIRUBIN,TOTAL 0.3 mg/dL (0.2-1); TOT PROT 6.9 g/dl (6.4-8.2)
[2022-12-04] MEDS ORDERED: MELATONIN 5 MG TABLETS PO SCH (22:00)
[2022-12-04] MEDS: QUEtiapine FUMARATE 100 MG TABLET (FP) PO SCH (22:22)
[2022-12-04] MEDS: THIAMINE HCL 100 MG TABLET (FP) PO SCH (22:22)
[2022-12-05] MEDS: LORazepam 2 MG TABLET PO SCH ×4 (05:49→22:13)
[2022-12-05] MEDS: PRENATAL VITAMINS W/ FOLIC ACID TABLET (FP) PO SCH (10:20)
[2022-12-05] MEDS: NICOTINE 7 MG/24 HOURS TOPICAL PATCH TD SCH (10:20)
[2022-12-05] MEDS: LACTULOSE 20 GM/30 ML UDC (FOR ORAL USE ONLY) PO SCH ×4 (10:20→22:13)
[2022-12-05] MEDS: hydrOXYzine PAMOATE 25 MG CAPSULE (FP) PO PRN (10:20)
[2022-12-05] MEDS: METHOCARBAMOL 500 MG TABLET PO PRN (10:20)
[2022-12-05] MEDS: THIAMINE HCL 100 MG TABLET (FP) PO SCH (22:13)
[2022-12-05] MEDS: QUEtiapine FUMARATE 100 MG TABLET (FP) PO SCH (22:13)
[2022-12-06] MEDS: LORazepam 1 MG TABLET PO SCH ×4 (05:22→22:03)
[2022-12-06] MEDS: PRENATAL VITAMINS W/ FOLIC ACID TABLET (FP) PO SCH (10:17)
[2022-12-06] MEDS: LACTULOSE 20 GM/30 ML UDC (FOR ORAL USE ONLY) PO SCH ×4 (10:17→22:04)
[2022-12-06] MEDS: METHOCARBAMOL 500 MG TABLET PO PRN (10:18)
[2022-12-06] MEDS: hydrOXYzine PAMOATE 25 MG CAPSULE (FP) PO PRN (10:18)
[2022-12-06] MEDS: NICOTINE 7 MG/24 HOURS TOPICAL PATCH TD SCH (10:21)
[2022-12-06] MEDS: QUEtiapine FUMARATE 100 MG TABLET (FP) PO SCH (22:02)
[2022-12-06] MEDS: THIAMINE HCL 100 MG TABLET (FP) PO SCH (22:02)
[2022-12-07] MEDS ORDERED: LORazepam 0.5 MG TABLET PO PRN
[2022-12-07] MEDS: LORazepam 0.5 MG TABLET PO SCH ×4 (06:00→22:27)
[2022-12-07] MEDS: LACTULOSE 20 GM/30 ML UDC (FOR ORAL USE ONLY) PO SCH ×4 (10:33→22:27)
[2022-12-07] MEDS: PRENATAL VITAMINS W/ FOLIC ACID TABLET (FP) PO SCH (10:33)
[2022-12-07] MEDS: METHOCARBAMOL 500 MG TABLET PO PRN (10:33)
[2022-12-07] MEDS: hydrOXYzine PAMOATE 25 MG CAPSULE (FP) PO PRN (10:33)
[2022-12-07] MEDS: NICOTINE 7 MG/24 HOURS TOPICAL PATCH TD SCH (10:34)
[2022-12-07 20:48] VITALS: RESP 18
[2022-12-07] MEDS: THIAMINE HCL 100 MG TABLET (FP) PO SCH (22:26)
[2022-12-07] MEDS: QUEtiapine FUMARATE 100 MG TABLET (FP) PO SCH (22:26)
[2022-12-08] MEDS ORDERED: LORazepam 0.5 MG TABLET PO ONE (05:00)
[2022-12-08 09:57] VITALS: BP 145/81; PULSE 76; TEMP 97.7
[2022-12-08] MEDS: LACTULOSE 20 GM/30 ML UDC (FOR ORAL USE ONLY) PO SCH (10:43)
[2022-12-08] MEDS: NICOTINE 7 MG/24 HOURS TOPICAL PATCH TD SCH (10:43)
[2022-12-08] MEDS: PRENATAL VITAMINS W/ FOLIC ACID TABLET (FP) PO SCH (10:43)
== END 2022-12-08 10:50 | disposition home or self-care (01) | DRG 774 ==
LOC: YASAS 10:55 → Y6N 14:49
PROVIDERS: ADMIT Allergy & Immunology; ATTEND Surgery
PROC: HZ2ZZZZ Detoxification Services for Substance Abuse Treatment (ICD-10-PCS; principal; 2022-12-04)
DX: F10.230 Alcohol dependence with withdrawal, uncomplicated (principal); F14.20 Cocaine dependence, uncomplicated; F12.20 Cannabis dependence, uncomplicated; F17.210 Nicotine dependence, cigarettes, uncomplicated; F19.282 Other psychoactive substance dependence with psychoactive substance-induced sleep disorder; F31.9 Bipolar disorder, unspecified; K21.9 Gastro-esophageal reflux disease without esophagitis; L30.9 Dermatitis, unspecified; R79.89 Other specified abnormal findings of blood chemistry; Z88.8 Allergy status to other drugs, medicaments and biological substances
CPT/HCPCS: 36415; 80053; 82140; 82310; 83036; 85027; 86780; 87635

== ENCOUNTER 2023-01-09 11:22 | Inpatient (IN) | payer OTHER ==
[2023-01-09 12:00] VITALS: BMI 31.6
[2023-01-09] MEDS ORDERED: ONDANSETRON *ODT* 4 MG TABLET SL PRN (13:12)
[2023-01-09] MEDS ORDERED: MAG HYDROX/AL HYDROX/SIMETH 30 ML UNIT-DOSE CUP PO PRN (13:12)
[2023-01-09] MEDS ORDERED: NALOXONE HCL (KLOXXADO) 8 MG SPRAY NS PRN (13:12)
[2023-01-09] MEDS ORDERED: MAGNESIUM HYDROX 2400MG/30ML ORAL SUSPENSION 30 ML CUP PO PRN (13:12)
[2023-01-09] MEDS ORDERED: IBUPROFEN 600 MG TABLET (FP) PO PRN (13:12)
[2023-01-09] MEDS ORDERED: METHOCARBAMOL 500 MG TABLET PO PRN (13:12)
[2023-01-09] MEDS ORDERED: BENZONATATE 200 MG CAPSULE PO PRN (13:12)
[2023-01-09] MEDS ORDERED: BENZOCAINE/MENTHOL (CHLORASEPTIC ) LOZENGE MM PRN (13:12)
[2023-01-09] MEDS ORDERED: ACETAMINOPHEN 325 MG TABLET (FP) PO PRN (13:12)
[2023-01-09] MEDS ORDERED: DICYCLOMINE HCL 10 MG CAPSULE PO PRN (13:12)
[2023-01-09] MEDS ORDERED: LOPERAMIDE HCL 2 MG CAPSULE PO PRN (13:12)
[2023-01-09] MEDS ORDERED: POLYETHYLENE GLYCOL (HEALTHYLAX) 3350 17 GM PACKET PO PRN (13:12)
[2023-01-09] MEDS ORDERED: NALOXONE HCL 0.4 MG/ML VIAL IM PRN (13:12)
[2023-01-09] MEDS ORDERED: hydrOXYzine PAMOATE 25 MG CAPSULE (FP) PO PRN (13:12)
[2023-01-09] MEDS ORDERED: LORazepam 1 MG TABLET PO PRN (13:12)
[2023-01-09] MEDS ORDERED: BISMUTH SUBSALICYLATE 262 MG/15 ML BTL PO PRN (13:12)
[2023-01-09] MEDS ORDERED: guaiFENesin 600 MG TABLET.ER (FP) PO PRN (13:12)
[2023-01-09] MEDS ORDERED: IBUPROFEN 400 MG TABLET (FP) PO PRN (13:12)
[2023-01-09] MEDS ORDERED: PRENATAL VITAMINS W/ FOLIC ACID TABLET (FP) PO ONE (14:18)
[2023-01-09] MEDS ORDERED: NICOTINE 7 MG/24 HOURS TOPICAL PATCH TD ONE (14:19)
[2023-01-09] MEDS: PRENATAL VITAMINS W/ FOLIC ACID TABLET (FP) PO SCH (14:21)
[2023-01-09] MEDS: NICOTINE 7 MG/24 HOURS TOPICAL PATCH TD SCH (14:21)
[2023-01-09] MEDS: LORazepam 2 MG TABLET PO SCH ×2 (17:14→21:59)
[2023-01-09 17:20] LABS: HEMOGLOBIN 11.3 GM/dL (11.7-16.9); MCH 26.8 pg (25.7-33.7); MCHC 33.1 g/dl (32.0-35.9); MEAN PLT VOLUME 8.1 fl (7.5-11.1); PLATELET COUNT 218 10^3/uL (134-434); RDW 13.9 % (11.9-15.9); WHITE BLOOD COUNT 4.6 K/mm3 (4.0-10.0)
[2023-01-09 17:35] LABS: ALBUMIN 3.2 g/dl (3.4-5.0)
[2023-01-09 17:36] LABS: CALCIUM 7.9 mg/dL (8.5-10.1)
[2023-01-09 17:37] LABS: BLOOD UREA NITROGEN 16.9 mg/dL (7-18)
[2023-01-09 17:40] LABS: CREATININE 1.1 mg/dL (0.55-1.3)
[2023-01-09 17:41] LABS: TOT PROT 7.3 g/dl (6.4-8.2)
[2023-01-09 17:42] LABS: BILIRUBIN,TOTAL 0.3 mg/dL (0.2-1)
[2023-01-09] MEDS: MELATONIN 5 MG TABLETS PO SCH (21:59)
[2023-01-09] MEDS: THIAMINE HCL 100 MG TABLET (FP) PO SCH (21:59)
[2023-01-10] MEDS: LORazepam 2 MG TABLET PO SCH ×4 (05:33→22:28)
[2023-01-10] MEDS: NICOTINE 7 MG/24 HOURS TOPICAL PATCH TD SCH (10:08)
[2023-01-10] MEDS: PRENATAL VITAMINS W/ FOLIC ACID TABLET (FP) PO SCH (10:08)
[2023-01-10 13:17] VITALS: RESP 17
[2023-01-10] MEDS: LACTULOSE 20 GM/30 ML UDC (FOR ORAL USE ONLY) PO SCH ×3 (13:21→22:30)
[2023-01-10] MEDS ORDERED: QUEtiapine FUMARATE 100 MG TABLET (FP) PO SCH (22:00)
[2023-01-10] MEDS: THIAMINE HCL 100 MG TABLET (FP) PO SCH (22:28)
[2023-01-10] MEDS: MELATONIN 5 MG TABLETS PO SCH (23:22)
[2023-01-11] MEDS: LORazepam 1 MG TABLET PO SCH ×2 (05:41→11:11)
[2023-01-11 05:51] VITALS: BP 101/59; PULSE 80; TEMP 97.7
[2023-01-11] MEDS: NICOTINE 7 MG/24 HOURS TOPICAL PATCH TD SCH (11:10)
[2023-01-11] MEDS: PRENATAL VITAMINS W/ FOLIC ACID TABLET (FP) PO SCH (11:10)
[2023-01-11] MEDS: LACTULOSE 20 GM/30 ML UDC (FOR ORAL USE ONLY) PO SCH (11:10)
[2023-01-12] MEDS ORDERED: LORazepam 0.5 MG TABLET PO PRN
[2023-01-12] MEDS ORDERED: LORazepam 0.5 MG TABLET PO SCH (05:00)
[2023-01-13] MEDS ORDERED: LORazepam 0.5 MG TABLET PO ONE (05:00)
== END 2023-01-11 11:05 | disposition left against medical advice (07) | DRG 770 ==
LOC: YASAS 11:22 → Y6N 14:12
PROVIDERS: ADMIT Allergy & Immunology; ATTEND Surgery
PROC: HZ2ZZZZ Detoxification Services for Substance Abuse Treatment (ICD-10-PCS; principal; 2023-01-09)
DX: F10.230 Alcohol dependence with withdrawal, uncomplicated (principal); F14.20 Cocaine dependence, uncomplicated; F12.20 Cannabis dependence, uncomplicated; F17.210 Nicotine dependence, cigarettes, uncomplicated; F39 Unspecified mood [affective] disorder; F19.282 Other psychoactive substance dependence with psychoactive substance-induced sleep disorder; K21.9 Gastro-esophageal reflux disease without esophagitis; L30.9 Dermatitis, unspecified; R73.9 Hyperglycemia, unspecified; R79.89 Other specified abnormal findings of blood chemistry; Z88.8 Allergy status to other drugs, medicaments and biological substances
CPT/HCPCS: 26055; 36415; 80053; 82140; 85027; 86780; 87635; 87811

== ENCOUNTER 2023-01-31 09:31 | Inpatient (IN) | payer OTHER ==
[2023-01-31 10:16] VITALS: BMI 29.2
[2023-01-31] MEDS ORDERED: NALOXONE HCL 0.4 MG/ML VIAL IM PRN (13:23)
[2023-01-31] MEDS ORDERED: BENZONATATE 200 MG CAPSULE PO PRN (13:23)
[2023-01-31] MEDS ORDERED: guaiFENesin 600 MG TABLET.ER (FP) PO PRN (13:23)
[2023-01-31] MEDS ORDERED: hydrOXYzine PAMOATE 25 MG CAPSULE (FP) PO PRN (13:23)
[2023-01-31] MEDS ORDERED: LORazepam 1 MG TABLET PO PRN (13:23)
[2023-01-31] MEDS ORDERED: ONDANSETRON *ODT* 4 MG TABLET SL PRN (13:23)
[2023-01-31] MEDS ORDERED: NALOXONE HCL (KLOXXADO) 8 MG SPRAY NS PRN (13:23)
[2023-01-31] MEDS ORDERED: ACETAMINOPHEN 325 MG TABLET (FP) PO PRN (13:23)
[2023-01-31] MEDS ORDERED: MAGNESIUM HYDROX 2400MG/30ML ORAL SUSPENSION 30 ML CUP PO PRN (13:23)
[2023-01-31] MEDS ORDERED: IBUPROFEN 400 MG TABLET (FP) PO PRN (13:23)
[2023-01-31] MEDS ORDERED: LOPERAMIDE HCL 2 MG CAPSULE PO PRN (13:23)
[2023-01-31] MEDS ORDERED: BISMUTH SUBSALICYLATE 524 MG/30 ML PO PRN (13:23)
[2023-01-31] MEDS ORDERED: BENZOCAINE/MENTHOL (CHLORASEPTIC ) LOZENGE MM PRN (13:23)
[2023-01-31] MEDS ORDERED: POLYETHYLENE GLYCOL (HEALTHYLAX) 3350 17 GM PACKET PO PRN (13:23)
[2023-01-31] MEDS ORDERED: IBUPROFEN 600 MG TABLET (FP) PO PRN (13:23)
[2023-01-31] MEDS ORDERED: DICYCLOMINE HCL 10 MG CAPSULE PO PRN (13:23)
[2023-01-31] MEDS ORDERED: MAG HYDROX/AL HYDROX/SIMETH 30 ML UNIT-DOSE CUP PO PRN (13:23)
[2023-01-31] MEDS ORDERED: METHOCARBAMOL 500 MG TABLET PO PRN (13:23)
[2023-01-31] MEDS ORDERED: PRENATAL VITAMINS W/ FOLIC ACID TABLET (FP) PO ONE (13:46)
[2023-01-31] MEDS: PRENATAL VITAMINS W/ FOLIC ACID TABLET (FP) PO SCH ×2 (13:50→14:03)
[2023-01-31 16:58] LABS: POTASSIUM 3.9 mmol/L (3.5-5.1)
[2023-01-31 17:00] LABS: CALCIUM 7.9 mg/dL (8.5-10.1)
[2023-01-31 17:01] LABS: ALBUMIN 3.3 g/dl (3.4-5.0); BLOOD UREA NITROGEN 11.2 mg/dL (7-18); HEMATOCRIT 37.4 % (35.4-49); HEMOGLOBIN 12.3 GM/dL (11.7-16.9); MCH 26.6 pg (25.7-33.7); MCHC 32.9 g/dl (32.0-35.9); MEAN CELL VOLUME 80.9 fl (80-96); MEAN PLT VOLUME 7.8 fl (7.5-11.1); PLATELET COUNT 267 10^3/uL (134-434); RBC 4.62 M/mm3 (4.00-5.60); RDW 14.5 % (11.9-15.9); WHITE BLOOD COUNT 3.7 K/mm3 (4.0-10.0)
[2023-01-31 17:04] LABS: CREATININE 1.1 mg/dL (0.55-1.3)
[2023-01-31 17:05] LABS: BILIRUBIN,TOTAL 0.3 mg/dL (0.2-1)
[2023-01-31 17:06] LABS: TOT PROT 7.8 g/dl (6.4-8.2)
[2023-01-31] MEDS: LORazepam 2 MG TABLET PO SCH ×2 (17:23→22:16)
[2023-01-31] MEDS: THIAMINE HCL 100 MG TABLET (FP) PO SCH (22:16)
[2023-01-31] MEDS: MELATONIN 5 MG TABLETS PO SCH (22:16)
[2023-01-31] MEDS: DIVALPROEX SODIUM 250 MG TABLET E.C. PO SCH (22:16)
[2023-02-01] MEDS: LORazepam 2 MG TABLET PO SCH ×4 (05:44→22:30)
[2023-02-01] MEDS: PRENATAL VITAMINS W/ FOLIC ACID TABLET (FP) PO SCH (10:33)
[2023-02-01] MEDS: LACTULOSE 20 GM/30 ML UDC (FOR ORAL USE ONLY) PO SCH ×3 (13:45→22:29)
[2023-02-01] MEDS: DIVALPROEX SODIUM 250 MG TABLET E.C. PO SCH (22:30)
[2023-02-01] MEDS: QUEtiapine FUMARATE 100 MG TABLET (FP) PO SCH (22:30)
[2023-02-01] MEDS: THIAMINE HCL 100 MG TABLET (FP) PO SCH (22:30)
[2023-02-01] MEDS: MELATONIN 5 MG TABLETS PO SCH (22:31)
[2023-02-02] MEDS: LORazepam 1 MG TABLET PO SCH ×4 (05:24→22:38)
[2023-02-02] MEDS: PRENATAL VITAMINS W/ FOLIC ACID TABLET (FP) PO SCH (10:33)
[2023-02-02] MEDS: LACTULOSE 20 GM/30 ML UDC (FOR ORAL USE ONLY) PO SCH ×4 (10:35→22:38)
[2023-02-02 17:14] VITALS: RESP 18
[2023-02-02] MEDS: QUEtiapine FUMARATE 100 MG TABLET (FP) PO SCH (22:38)
[2023-02-02] MEDS: DIVALPROEX SODIUM 250 MG TABLET E.C. PO SCH (22:38)
[2023-02-02] MEDS: MELATONIN 5 MG TABLETS PO SCH (22:38)
[2023-02-02] MEDS: THIAMINE HCL 100 MG TABLET (FP) PO SCH (22:38)
[2023-02-03] MEDS ORDERED: LORazepam 0.5 MG TABLET PO PRN
[2023-02-03] MEDS: LORazepam 0.5 MG TABLET PO SCH ×4 (05:27→22:22)
[2023-02-03] MEDS: PRENATAL VITAMINS W/ FOLIC ACID TABLET (FP) PO SCH (10:39)
[2023-02-03] MEDS: LACTULOSE 20 GM/30 ML UDC (FOR ORAL USE ONLY) PO SCH ×4 (10:41→22:23)
[2023-02-03] MEDS: QUEtiapine FUMARATE 100 MG TABLET (FP) PO SCH (22:22)
[2023-02-03] MEDS: DIVALPROEX SODIUM 250 MG TABLET E.C. PO SCH (22:22)
[2023-02-03] MEDS: THIAMINE HCL 100 MG TABLET (FP) PO SCH (22:22)
[2023-02-03] MEDS: MELATONIN 5 MG TABLETS PO SCH (22:23)
[2023-02-04] MEDS ORDERED: LORazepam 0.5 MG TABLET PO ONE (05:00)
[2023-02-04 09:29] VITALS: BP 143/77; PULSE 87; TEMP 97.7
[2023-02-04] MEDS: PRENATAL VITAMINS W/ FOLIC ACID TABLET (FP) PO SCH (10:51)
[2023-02-04] MEDS: LACTULOSE 20 GM/30 ML UDC (FOR ORAL USE ONLY) PO SCH (10:51)
== END 2023-02-04 12:09 | disposition other institution (70) | DRG 774 ==
LOC: YASAS 09:31 → Y6N 13:25
PROVIDERS: ADMIT Allergy & Immunology; ATTEND Allergy & Immunology
PROC: HZ2ZZZZ Detoxification Services for Substance Abuse Treatment (ICD-10-PCS; principal; 2023-01-31)
DX: F10.230 Alcohol dependence with withdrawal, uncomplicated (principal); F14.20 Cocaine dependence, uncomplicated; F12.20 Cannabis dependence, uncomplicated; F17.210 Nicotine dependence, cigarettes, uncomplicated; F19.282 Other psychoactive substance dependence with psychoactive substance-induced sleep disorder; F25.0 Schizoaffective disorder, bipolar type; F31.9 Bipolar disorder, unspecified; E72.20 Disorder of urea cycle metabolism, unspecified; L30.9 Dermatitis, unspecified; Z88.8 Allergy status to other drugs, medicaments and biological substances
CPT/HCPCS: 36415; 80053; 82140; 85027; 86780; 87635; 87811

== ENCOUNTER 2023-02-04 12:17 | Inpatient (IN) | payer OTHER ==
[2023-02-04] MEDS ORDERED: METHOCARBAMOL 500 MG TABLET PO PRN (13:49)
[2023-02-04] MEDS ORDERED: MAGNESIUM HYDROX 2400MG/30ML ORAL SUSPENSION 30 ML CUP PO PRN (13:49)
[2023-02-04] MEDS ORDERED: BENZOCAINE/MENTHOL (CHLORASEPTIC ) LOZENGE MM PRN (13:49)
[2023-02-04] MEDS ORDERED: AMMONIUM LACTATE 12% LOTION 225 GM BOTTLE TP PRN (13:49)
[2023-02-04] MEDS ORDERED: NICOTINE 7 MG/24 HOURS TOPICAL PATCH TD PRN (13:49)
[2023-02-04] MEDS ORDERED: MAG HYDROX/AL HYDROX/SIMETH 30 ML UNIT-DOSE CUP PO PRN (13:49)
[2023-02-04] MEDS ORDERED: IBUPROFEN 400 MG TABLET (FP) PO PRN (13:49)
[2023-02-04] MEDS ORDERED: hydrOXYzine PAMOATE 25 MG CAPSULE (FP) PO PRN (13:49)
[2023-02-04] MEDS ORDERED: LOPERAMIDE HCL 2 MG CAPSULE PO PRN (13:49)
[2023-02-04] MEDS ORDERED: BENZONATATE 200 MG CAPSULE PO PRN (13:49)
[2023-02-04] MEDS ORDERED: guaiFENesin 600 MG TABLET.ER (FP) PO PRN (13:49)
[2023-02-04] MEDS ORDERED: POLYETHYLENE GLYCOL (HEALTHYLAX) 3350 17 GM PACKET PO PRN (13:49)
[2023-02-04] MEDS ORDERED: COLLOIDAL OATMEAL 1 BAR EACH TP PRN (13:49)
[2023-02-04] MEDS ORDERED: ACETAMINOPHEN 325 MG TABLET (FP) PO PRN (13:49)
[2023-02-04] MEDS ORDERED: NICOTINE POLACRILEX 2 MG GUM BUC PRN (13:49)
[2023-02-04] MEDS ORDERED: IBUPROFEN 600 MG TABLET (FP) PO PRN (13:49)
[2023-02-04] MEDS: LACTULOSE 20 GM/30 ML UDC (FOR ORAL USE ONLY) PO SCH ×3 (14:47→21:27)
[2023-02-04] MEDS: QUEtiapine FUMARATE 100 MG TABLET (FP) PO SCH (21:28)
[2023-02-04] MEDS: DIVALPROEX SODIUM 250 MG TABLET E.C. PO SCH (21:28)
[2023-02-04] MEDS: MELATONIN 5 MG TABLETS PO SCH (21:28)
[2023-02-04] MEDS: THIAMINE HCL 100 MG TABLET (FP) PO SCH (21:28)
[2023-02-05] MEDS: LACTULOSE 20 GM/30 ML UDC (FOR ORAL USE ONLY) PO SCH ×4 (09:49→21:16)
[2023-02-05] MEDS: PRENATAL VITAMINS W/ FOLIC ACID TABLET (FP) PO SCH (09:49)
[2023-02-05 16:16] LABS: HIV INTERPRETATION PRESUMPTIVE POSITIVE (NEGATIVE)
[2023-02-05] MEDS: DIVALPROEX SODIUM 250 MG TABLET E.C. PO SCH (21:16)
[2023-02-05] MEDS: MELATONIN 5 MG TABLETS PO SCH (21:16)
[2023-02-05] MEDS: QUEtiapine FUMARATE 100 MG TABLET (FP) PO SCH (21:16)
[2023-02-05] MEDS: THIAMINE HCL 100 MG TABLET (FP) PO SCH (21:16)
[2023-02-06] MEDS: PRENATAL VITAMINS W/ FOLIC ACID TABLET (FP) PO SCH (09:57)
[2023-02-06] MEDS: LACTULOSE 20 GM/30 ML UDC (FOR ORAL USE ONLY) PO SCH ×4 (09:57→21:13)
[2023-02-06] MEDS ORDERED: TUBERCULIN PPD 5 TU/0.1ML VIAL ID ONE (11:55)
[2023-02-06] MEDS: FLUTICASONE PROP 0.05% 16 GM NASAL SPRAY NS SCH (13:43)
[2023-02-06] MEDS: DIVALPROEX SODIUM 250 MG TABLET E.C. PO SCH (21:13)
[2023-02-06] MEDS: THIAMINE HCL 100 MG TABLET (FP) PO SCH (21:14)
[2023-02-06] MEDS: MELATONIN 5 MG TABLETS PO SCH (21:14)
[2023-02-06] MEDS: QUEtiapine FUMARATE 100 MG TABLET (FP) PO SCH (21:14)
[2023-02-07] MEDS: FLUTICASONE PROP 0.05% 16 GM NASAL SPRAY NS SCH (10:03)
[2023-02-07] MEDS: PRENATAL VITAMINS W/ FOLIC ACID TABLET (FP) PO SCH (10:04)
[2023-02-07] MEDS: LACTULOSE 20 GM/30 ML UDC (FOR ORAL USE ONLY) PO SCH ×4 (10:04→21:26)
[2023-02-07] MEDS: QUEtiapine FUMARATE 100 MG TABLET (FP) PO SCH (21:26)
[2023-02-07] MEDS: MELATONIN 5 MG TABLETS PO SCH (21:26)
[2023-02-07] MEDS: THIAMINE HCL 100 MG TABLET (FP) PO SCH (21:26)
[2023-02-07] MEDS: DIVALPROEX SODIUM 250 MG TABLET E.C. PO SCH (21:26)
[2023-02-08] MEDS: LACTULOSE 20 GM/30 ML UDC (FOR ORAL USE ONLY) PO SCH ×4 (10:04→21:40)
[2023-02-08] MEDS: FLUTICASONE PROP 0.05% 16 GM NASAL SPRAY NS SCH (10:04)
[2023-02-08] MEDS: PRENATAL VITAMINS W/ FOLIC ACID TABLET (FP) PO SCH (10:05)
[2023-02-08] MEDS: DIVALPROEX SODIUM 250 MG TABLET E.C. PO SCH (21:40)
[2023-02-08] MEDS: THIAMINE HCL 100 MG TABLET (FP) PO SCH (21:40)
[2023-02-08] MEDS: QUEtiapine FUMARATE 100 MG TABLET (FP) PO SCH (21:40)
[2023-02-08] MEDS: MELATONIN 5 MG TABLETS PO SCH (21:41)
[2023-02-09] MEDS: PRENATAL VITAMINS W/ FOLIC ACID TABLET (FP) PO SCH (10:19)
[2023-02-09] MEDS: LACTULOSE 20 GM/30 ML UDC (FOR ORAL USE ONLY) PO SCH ×4 (10:20→21:33)
[2023-02-09] MEDS: FLUTICASONE PROP 0.05% 16 GM NASAL SPRAY NS SCH (10:21)
[2023-02-09] MEDS: MELATONIN 5 MG TABLETS PO SCH (21:33)
[2023-02-09] MEDS: THIAMINE HCL 100 MG TABLET (FP) PO SCH (21:33)
[2023-02-09] MEDS: DIVALPROEX SODIUM 250 MG TABLET E.C. PO SCH (21:33)
[2023-02-09] MEDS: QUEtiapine FUMARATE 100 MG TABLET (FP) PO SCH (21:33)
[2023-02-10 07:10] VITALS: TEMP 97.6
[2023-02-10] MEDS: LACTULOSE 20 GM/30 ML UDC (FOR ORAL USE ONLY) PO SCH ×4 (09:39→21:13)
[2023-02-10] MEDS: FLUTICASONE PROP 0.05% 16 GM NASAL SPRAY NS SCH (09:39)
[2023-02-10] MEDS: PRENATAL VITAMINS W/ FOLIC ACID TABLET (FP) PO SCH (09:39)
[2023-02-10] MEDS: MELATONIN 5 MG TABLETS PO SCH (21:12)
[2023-02-10] MEDS: QUEtiapine FUMARATE 100 MG TABLET (FP) PO SCH (21:12)
[2023-02-10] MEDS: THIAMINE HCL 100 MG TABLET (FP) PO SCH (21:12)
[2023-02-10] MEDS: DIVALPROEX SODIUM 250 MG TABLET E.C. PO SCH (21:12)
[2023-02-11 07:09] VITALS: BP 109/75; PULSE 77; RESP 16
== END 2023-02-11 09:15 | disposition home or self-care (01) | DRG 772 ==
LOC: YASAS 12:17 → Y5N 12:18
PROVIDERS: ADMIT Allergy & Immunology; ATTEND Psychiatry & Neurology Pain Medicine
PROC: HZ42ZZZ Group Counseling for Substance Abuse Treatment, Cognitive-Behavioral (ICD-10-PCS; principal; 2023-02-04)
DX: F10.20 Alcohol dependence, uncomplicated (principal); F17.210 Nicotine dependence, cigarettes, uncomplicated; E72.20 Disorder of urea cycle metabolism, unspecified; R75 Inconclusive laboratory evidence of human immunodeficiency virus [HIV]; Z59.01 Sheltered homelessness; Z88.8 Allergy status to other drugs, medicaments and biological substances
CPT/HCPCS: 36415; 82140; 86480; 87389

== ENCOUNTER 2023-02-28 10:26 | Inpatient (IN) | payer OTHER ==
[2023-02-28 11:25] VITALS: BMI 30.7
[2023-02-28] MEDS ORDERED: guaiFENesin 600 MG TABLET.ER (FP) PO PRN (12:05)
[2023-02-28] MEDS ORDERED: ONDANSETRON *ODT* 4 MG TABLET SL PRN (12:05)
[2023-02-28] MEDS ORDERED: POLYETHYLENE GLYCOL (HEALTHYLAX) 3350 17 GM PACKET PO PRN (12:05)
[2023-02-28] MEDS ORDERED: METHOCARBAMOL 500 MG TABLET PO PRN (12:05)
[2023-02-28] MEDS ORDERED: BENZOCAINE/MENTHOL (CHLORASEPTIC ) LOZENGE MM PRN (12:05)
[2023-02-28] MEDS ORDERED: MAG HYDROX/AL HYDROX/SIMETH 30 ML UNIT-DOSE CUP PO PRN (12:05)
[2023-02-28] MEDS ORDERED: MAGNESIUM HYDROX 2400MG/30ML ORAL SUSPENSION 30 ML CUP PO PRN (12:05)
[2023-02-28] MEDS ORDERED: BENZONATATE 200 MG CAPSULE PO PRN (12:05)
[2023-02-28] MEDS ORDERED: LOPERAMIDE HCL 2 MG CAPSULE PO PRN (12:05)
[2023-02-28] MEDS ORDERED: hydrOXYzine PAMOATE 25 MG CAPSULE (FP) PO PRN (12:05)
[2023-02-28] MEDS ORDERED: BISMUTH SUBSALICYLATE 524 MG/30 ML PO PRN (12:05)
[2023-02-28] MEDS ORDERED: IBUPROFEN 400 MG TABLET (FP) PO PRN (12:05)
[2023-02-28] MEDS ORDERED: DICYCLOMINE HCL 10 MG CAPSULE PO PRN (12:05)
[2023-02-28] MEDS ORDERED: IBUPROFEN 600 MG TABLET (FP) PO PRN (12:05)
[2023-02-28] MEDS ORDERED: MELATONIN 5 MG TABLETS PO SCH (22:00)
[2023-02-28] MEDS: QUEtiapine FUMARATE 100 MG TABLET (FP) PO SCH (22:38)
[2023-02-28] MEDS: THIAMINE HCL 100 MG TABLET (FP) PO SCH (22:38)
[2023-03-01] MEDS: BICTEGRAV/EMTRICIT/TENOFOV (BIKTARVY) 50-200-25 MG TABLET PO SCH (10:20)
[2023-03-01] MEDS: PRENATAL VITAMINS W/ FOLIC ACID TABLET (FP) PO SCH (10:20)
[2023-03-01] MEDS: THIAMINE HCL 100 MG TABLET (FP) PO SCH (22:21)
[2023-03-01] MEDS: QUEtiapine FUMARATE 100 MG TABLET (FP) PO SCH (22:21)
[2023-03-02] MEDS: BICTEGRAV/EMTRICIT/TENOFOV (BIKTARVY) 50-200-25 MG TABLET PO SCH (09:48)
[2023-03-02] MEDS: PRENATAL VITAMINS W/ FOLIC ACID TABLET (FP) PO SCH (09:49)
[2023-03-02] MEDS: LORazepam 1 MG TABLET PO SCH ×3 (10:35→22:24)
[2023-03-02] MEDS ORDERED: LORazepam 0.5 MG TABLET PO PRN (11:00)
[2023-03-02] MEDS: THIAMINE HCL 100 MG TABLET (FP) PO SCH (22:24)
[2023-03-02] MEDS: QUEtiapine FUMARATE 100 MG TABLET (FP) PO SCH (22:24)
[2023-03-03] MEDS: LORazepam 0.5 MG TABLET PO SCH ×4 (06:01→22:42)
[2023-03-03] MEDS: PRENATAL VITAMINS W/ FOLIC ACID TABLET (FP) PO SCH (10:12)
[2023-03-03] MEDS: BICTEGRAV/EMTRICIT/TENOFOV (BIKTARVY) 50-200-25 MG TABLET PO SCH (10:12)
[2023-03-03] MEDS: THIAMINE HCL 100 MG TABLET (FP) PO SCH (22:42)
[2023-03-03] MEDS: QUEtiapine FUMARATE 100 MG TABLET (FP) PO SCH (22:42)
[2023-03-04] MEDS ORDERED: LORazepam 0.5 MG TABLET PO ONE (05:00)
[2023-03-04 09:33] VITALS: BP 138/90; PULSE 100; RESP 16; TEMP 98.7
[2023-03-04] MEDS: PRENATAL VITAMINS W/ FOLIC ACID TABLET (FP) PO SCH (10:25)
[2023-03-04] MEDS: BICTEGRAV/EMTRICIT/TENOFOV (BIKTARVY) 50-200-25 MG TABLET PO SCH (10:25)
== END 2023-03-04 12:55 | disposition home or self-care (01) | DRG 774 ==
LOC: YASAS 10:26 → Y3N 12:12
PROVIDERS: ADMIT Allergy & Immunology; ATTEND Surgery
PROC: HZ2ZZZZ Detoxification Services for Substance Abuse Treatment (ICD-10-PCS; principal; 2023-02-28)
DX: F10.230 Alcohol dependence with withdrawal, uncomplicated (principal); F14.20 Cocaine dependence, uncomplicated; F12.20 Cannabis dependence, uncomplicated; F17.210 Nicotine dependence, cigarettes, uncomplicated; F19.282 Other psychoactive substance dependence with psychoactive substance-induced sleep disorder; K21.9 Gastro-esophageal reflux disease without esophagitis; L30.9 Dermatitis, unspecified; Z88.8 Allergy status to other drugs, medicaments and biological substances
CPT/HCPCS: 87635; 87811

== ENCOUNTER 2023-04-16 15:01 | Inpatient (IN) | payer OTHER ==
[~2023-04-16 15:01] MED LIST: ACETAMINOPHEN 325 MG TABLET (FP) PO PRN; BENZOCAINE/MENTHOL (CHLORASEPTIC ) LOZENGE MM PRN; BENZONATATE 200 MG CAPSULE PO PRN; COLLOIDAL OATMEAL 1 BAR EACH TP PRN; IBUPROFEN 400 MG TABLET (FP) PO PRN; IBUPROFEN 600 MG TABLET (FP) PO PRN; LOPERAMIDE HCL 2 MG CAPSULE PO PRN; MAG HYDROX/AL HYDROX/SIMETH 30 ML UNIT-DOSE CUP PO PRN; MAGNESIUM HYDROX 2400MG/30ML ORAL SUSPENSION 30 ML CUP PO PRN; METHOCARBAMOL 500 MG TABLET PO PRN; NICOTINE 7 MG/24 HOURS TOPICAL PATCH TD PRN; NICOTINE POLACRILEX 2 MG GUM BUC PRN; POLYETHYLENE GLYCOL (HEALTHYLAX) 3350 17 GM PACKET PO PRN; guaiFENesin 600 MG TABLET.ER (FP) PO PRN
[2023-04-16] MEDS: MELATONIN 5 MG TABLETS PO SCH (22:09)
[2023-04-16] MEDS: QUEtiapine FUMARATE 100 MG TABLET (FP) PO SCH (22:09)
[2023-04-16] MEDS: THIAMINE HCL 100 MG TABLET (FP) PO SCH (22:09)
[2023-04-17] MEDS: hydrOXYzine PAMOATE 25 MG CAPSULE (FP) PO PRN (06:28)
[2023-04-17] MEDS: BICTEGRAV/EMTRICIT/TENOFOV (BIKTARVY) 50-200-25 MG TABLET PO SCH (07:06)
[2023-04-17 09:09] VITALS: RESP 18
[2023-04-17] MEDS: PRENATAL VITAMINS W/ FOLIC ACID TABLET (FP) PO SCH (10:07)
[2023-04-17] MEDS: QUEtiapine FUMARATE 100 MG TABLET (FP) PO SCH (21:04)
[2023-04-17] MEDS: THIAMINE HCL 100 MG TABLET (FP) PO SCH (21:04)
[2023-04-17] MEDS: MELATONIN 5 MG TABLETS PO SCH (21:04)
[2023-04-18] MEDS: hydrOXYzine PAMOATE 25 MG CAPSULE (FP) PO PRN (06:03)
[2023-04-18 06:41] VITALS: TEMP 97.5
[2023-04-18] MEDS: BICTEGRAV/EMTRICIT/TENOFOV (BIKTARVY) 50-200-25 MG TABLET PO SCH (07:04)
[2023-04-18 09:04] VITALS: BP 117/70; PULSE 91
[2023-04-18] MEDS: PRENATAL VITAMINS W/ FOLIC ACID TABLET (FP) PO SCH (10:13)
== END 2023-04-18 10:40 | disposition left against medical advice (07) | DRG 770 ==
LOC: YASAS 15:01 → Y3W 15:02
PROVIDERS: ADMIT Allergy & Immunology; ATTEND Psychiatry & Neurology Pain Medicine
PROC: HZ42ZZZ Group Counseling for Substance Abuse Treatment, Cognitive-Behavioral (ICD-10-PCS; principal; 2023-04-16)
DX: F10.20 Alcohol dependence, uncomplicated (principal); F14.20 Cocaine dependence, uncomplicated; F12.20 Cannabis dependence, uncomplicated; F17.210 Nicotine dependence, cigarettes, uncomplicated; F31.9 Bipolar disorder, unspecified; F41.9 Anxiety disorder, unspecified; Z21 Asymptomatic human immunodeficiency virus [HIV] infection status; K21.9 Gastro-esophageal reflux disease without esophagitis; Z88.8 Allergy status to other drugs, medicaments and biological substances; Z59.00 Homelessness unspecified

== ENCOUNTER 2023-06-22 12:59 | Inpatient (IN) | payer OTHER ==
[2023-06-22 13:26] VITALS: BMI 32.9
[2023-06-22] MEDS ORDERED: P-EPHED 60MG/TRIPROLIDI 2.5MG TABLET PO PRN (15:13)
[2023-06-22] MEDS ORDERED: IBUPROFEN 400 MG TABLET (FP) PO PRN (15:13)
[2023-06-22] MEDS ORDERED: IBUPROFEN 600 MG TABLET (FP) PO PRN (15:13)
[2023-06-22] MEDS ORDERED: ACETAMINOPHEN 325 MG TABLET (FP) PO PRN (15:13)
[2023-06-22] MEDS ORDERED: DICYCLOMINE HCL 10 MG CAPSULE PO PRN (15:13)
[2023-06-22] MEDS ORDERED: ONDANSETRON *ODT* 4 MG TABLET SL PRN (15:13)
[2023-06-22] MEDS ORDERED: NICOTINE POLACRILEX 2 MG GUM BUC PRN (15:13)
[2023-06-22] MEDS ORDERED: NALOXONE HCL 0.4 MG/ML VIAL IM PRN (15:13)
[2023-06-22] MEDS ORDERED: guaiFENesin 600 MG TABLET.ER (FP) PO PRN (15:13)
[2023-06-22] MEDS ORDERED: POLYETHYLENE GLYCOL (HEALTHYLAX) 3350 17 GM PACKET PO PRN (15:13)
[2023-06-22] MEDS ORDERED: LORazepam 1 MG TABLET PO PRN (15:13)
[2023-06-22] MEDS ORDERED: BENZOCAINE/MENTHOL (CHLORASEPTIC ) LOZENGE MM PRN (15:13)
[2023-06-22] MEDS ORDERED: BISMUTH SUBSALICYLATE 524 MG/30 ML PO PRN (15:13)
[2023-06-22] MEDS ORDERED: hydrOXYzine PAMOATE 25 MG CAPSULE (FP) PO PRN (15:13)
[2023-06-22] MEDS ORDERED: MAGNESIUM HYDROX 2400MG/30ML ORAL SUSPENSION 30 ML CUP PO PRN (15:13)
[2023-06-22] MEDS ORDERED: MAG HYDROX/AL HYDROX/SIMETH 30 ML UNIT-DOSE CUP PO PRN (15:13)
[2023-06-22] MEDS ORDERED: NALOXONE HCL (KLOXXADO) 8 MG SPRAY NS PRN (15:13)
[2023-06-22] MEDS ORDERED: LOPERAMIDE HCL 2 MG CAPSULE PO PRN (15:13)
[2023-06-22] MEDS ORDERED: BENZONATATE 200 MG CAPSULE PO PRN (15:13)
[2023-06-22] MEDS ORDERED: AZITHROMYCIN 500 MG TABLET PO ONE (16:00)
[2023-06-22] MEDS: LORazepam 2 MG TABLET PO SCH ×2 (17:20→22:40)
[2023-06-22] MEDS: THIAMINE HCL 100 MG TABLET (FP) PO SCH (22:40)
[2023-06-22] MEDS: METHOCARBAMOL 500 MG TABLET PO PRN (22:40)
[2023-06-22] MEDS: MELATONIN 5 MG TABLETS PO SCH (22:41)
[2023-06-23] MEDS: LORazepam 2 MG TABLET PO SCH ×4 (05:34→22:47)
[2023-06-23] MEDS: BICTEGRAV/EMTRICIT/TENOFOV (BIKTARVY) 50-200-25 MG TABLET PO SCH (10:17)
[2023-06-23] MEDS: PRENATAL VITAMINS W/ FOLIC ACID TABLET (FP) PO SCH (10:17)
[2023-06-23] MEDS: AZITHROMYCIN 250 MG TABLET PO SCH (10:17)
[2023-06-23 12:53] LABS: HEMATOCRIT 35.6 % (35.4-49); HEMOGLOBIN 11.7 GM/dL (11.7-16.9); MCH 26.7 pg (25.7-33.7); MCHC 32.8 g/dl (32.0-35.9); MEAN CELL VOLUME 81.3 fl (80-96); MEAN PLT VOLUME 8.5 fl (7.5-11.1); PLATELET COUNT 235 10^3/uL (134-434); RBC 4.38 M/mm3 (4.00-5.60); RDW 14.5 % (11.9-15.9); WHITE BLOOD COUNT 6.8 K/mm3 (4.0-10.0)
[2023-06-23] MEDS: amLODIPine BESYLATE 5 MG TABLET (FP) PO SCH (14:46)
[2023-06-23] MEDS: MELATONIN 5 MG TABLETS PO SCH (22:47)
[2023-06-23] MEDS: THIAMINE HCL 100 MG TABLET (FP) PO SCH (22:47)
[2023-06-24] MEDS: LORazepam 1 MG TABLET PO SCH ×4 (05:49→23:17)
[2023-06-24] MEDS: BICTEGRAV/EMTRICIT/TENOFOV (BIKTARVY) 50-200-25 MG TABLET PO SCH (07:31)
[2023-06-24] MEDS: AZITHROMYCIN 250 MG TABLET PO SCH (10:34)
[2023-06-24] MEDS: PRENATAL VITAMINS W/ FOLIC ACID TABLET (FP) PO SCH (10:34)
[2023-06-24] MEDS: amLODIPine BESYLATE 5 MG TABLET (FP) PO SCH (10:34)
[2023-06-24 12:32] LABS: CHLORIDE 107 mmol/L (98-107); POTASSIUM 4.5 mmol/L (3.5-5.1); SODIUM 138 mmol/L (136-145)
[2023-06-24 12:35] LABS: ALBUMIN 3.3 g/dl (3.4-5.0); ANION GAP 7 mmol/L (4-13); BLOOD UREA NITROGEN 12.8 mg/dL (7-18); CALCIUM 8.4 mg/dL (8.5-10.1); CO2 24 mmol/L (21-32); GLUCOSE,RANDOM 123 mg/dL (74-106)
[2023-06-24 12:38] LABS: CREATININE 0.8 mg/dL (0.55-1.3); SGOT/AST 27 U/L (15-37); SGPT/ALT 28 U/L (13-61)
[2023-06-24 12:40] LABS: BILIRUBIN,TOTAL 0.3 mg/dL (0.2-1); TOT PROT 7.2 g/dl (6.4-8.2)
[2023-06-24 12:41] LABS: ALK PHOS 70 U/L (45-117)
[2023-06-24] MEDS: METHOCARBAMOL 500 MG TABLET PO PRN (17:17)
[2023-06-24] MEDS: THIAMINE HCL 100 MG TABLET (FP) PO SCH (23:17)
[2023-06-24] MEDS: MELATONIN 5 MG TABLETS PO SCH (23:17)
[2023-06-25] MEDS ORDERED: LORazepam 0.5 MG TABLET PO PRN
[2023-06-25] MEDS: LORazepam 0.5 MG TABLET PO SCH ×4 (05:58→22:41)
[2023-06-25] MEDS: BICTEGRAV/EMTRICIT/TENOFOV (BIKTARVY) 50-200-25 MG TABLET PO SCH (07:02)
[2023-06-25] MEDS: AZITHROMYCIN 250 MG TABLET PO SCH (10:30)
[2023-06-25] MEDS: PRENATAL VITAMINS W/ FOLIC ACID TABLET (FP) PO SCH (10:30)
[2023-06-25] MEDS: amLODIPine BESYLATE 5 MG TABLET (FP) PO SCH (10:30)
[2023-06-25 18:40] VITALS: RESP 18
[2023-06-25] MEDS: MELATONIN 5 MG TABLETS PO SCH (22:41)
[2023-06-25] MEDS: METHOCARBAMOL 500 MG TABLET PO PRN (22:41)
[2023-06-25] MEDS: THIAMINE HCL 100 MG TABLET (FP) PO SCH (22:41)
[2023-06-26] MEDS ORDERED: LORazepam 0.5 MG TABLET PO ONE (05:00)
[2023-06-26] MEDS: BICTEGRAV/EMTRICIT/TENOFOV (BIKTARVY) 50-200-25 MG TABLET PO SCH (07:05)
[2023-06-26] MEDS: amLODIPine BESYLATE 5 MG TABLET (FP) PO SCH (09:12)
[2023-06-26] MEDS: PRENATAL VITAMINS W/ FOLIC ACID TABLET (FP) PO SCH (09:12)
[2023-06-26 09:23] VITALS: BP 129/73; PULSE 91; TEMP 97.7
== END 2023-06-26 09:23 | disposition home or self-care (01) | DRG 774 ==
LOC: YASAS 12:59 → Y6N 14:56
PROVIDERS: ADMIT Allergy & Immunology; ATTEND Allergy & Immunology
PROC: HZ2ZZZZ Detoxification Services for Substance Abuse Treatment (ICD-10-PCS; principal; 2023-06-26)
DX: F10.230 Alcohol dependence with withdrawal, uncomplicated (principal); F14.20 Cocaine dependence, uncomplicated; F12.20 Cannabis dependence, uncomplicated; F17.210 Nicotine dependence, cigarettes, uncomplicated; F25.0 Schizoaffective disorder, bipolar type; F31.9 Bipolar disorder, unspecified; F19.982 Other psychoactive substance use, unspecified with psychoactive substance-induced sleep disorder; I10 Essential (primary) hypertension; Z21 Asymptomatic human immunodeficiency virus [HIV] infection status; K21.9 Gastro-esophageal reflux disease without esophagitis; J06.9 Acute upper respiratory infection, unspecified; Z88.6 Allergy status to analgesic agent; Z56.0 Unemployment, unspecified; Z59.00 Homelessness unspecified
CPT/HCPCS: 0241U-QW; 36415; 80053; 80307; 85027; 86780; 87635

== ENCOUNTER 2023-08-08 09:42 | Inpatient (IN) | payer OTHER ==
[2023-08-08 09:58] VITALS: BMI 34.0
[2023-08-08] MEDS ORDERED: diazePAM 5 MG TABLET PO PRN (10:40)
[2023-08-08] MEDS ORDERED: POLYETHYLENE GLYCOL (HEALTHYLAX) 3350 17 GM PACKET PO PRN (10:40)
[2023-08-08] MEDS ORDERED: NALOXONE HCL (KLOXXADO) 8 MG SPRAY NS PRN (10:40)
[2023-08-08] MEDS ORDERED: MAG HYDROX/AL HYDROX/SIMETH 30 ML UNIT-DOSE CUP PO PRN (10:40)
[2023-08-08] MEDS ORDERED: NALOXONE HCL 0.4 MG/ML VIAL IM PRN (10:40)
[2023-08-08] MEDS ORDERED: NICOTINE POLACRILEX 2 MG GUM BUC PRN (10:40)
[2023-08-08] MEDS ORDERED: BISMUTH SUBSALICYLATE 262 MG/15 ML BTL PO PRN (10:40)
[2023-08-08] MEDS ORDERED: DICYCLOMINE HCL 10 MG CAPSULE PO PRN (10:40)
[2023-08-08] MEDS ORDERED: guaiFENesin 600 MG TABLET.ER (FP) PO PRN (10:40)
[2023-08-08] MEDS ORDERED: hydrOXYzine PAMOATE 25 MG CAPSULE (FP) PO PRN (10:40)
[2023-08-08] MEDS ORDERED: ONDANSETRON *ODT* 4 MG TABLET SL PRN (10:40)
[2023-08-08] MEDS ORDERED: BENZONATATE 200 MG CAPSULE PO PRN (10:40)
[2023-08-08] MEDS ORDERED: LOPERAMIDE HCL 2 MG CAPSULE PO PRN (10:40)
[2023-08-08] MEDS ORDERED: IBUPROFEN 400 MG TABLET (FP) PO PRN (10:40)
[2023-08-08] MEDS ORDERED: MAGNESIUM HYDROX 2400MG/30ML ORAL SUSPENSION 30 ML CUP PO PRN (10:40)
[2023-08-08] MEDS ORDERED: IBUPROFEN 600 MG TABLET (FP) PO PRN (10:40)
[2023-08-08] MEDS ORDERED: BENZOCAINE/MENTHOL (CHLORASEPTIC ) LOZENGE MM PRN (10:40)
[2023-08-08 15:15] LABS: HEMOGLOBIN 12.7 GM/dL (11.7-16.9); MCH 27.4 pg (25.7-33.7); MCHC 33.4 g/dl (32.0-35.9); MEAN PLT VOLUME 8.1 fl (7.5-11.1); PLATELET COUNT 260 10^3/uL (134-434); RBC 4.64 M/mm3 (4.00-5.60); RDW 14.7 % (11.9-15.9); WHITE BLOOD COUNT 5.7 K/mm3 (4.0-10.0)
[2023-08-08 15:17] LABS: CHLORIDE 106 mmol/L (98-107); POTASSIUM 4.2 mmol/L (3.5-5.1); SODIUM 140 mmol/L (136-145)
[2023-08-08 15:18] LABS: ALBUMIN 3.8 g/dl (3.4-5.0); ANION GAP 6 mmol/L (4-13); BLOOD UREA NITROGEN 17.5 mg/dL (7-18); CO2 28 mmol/L (21-32); GLUCOSE,RANDOM 110 mg/dL (74-106)
[2023-08-08 15:22] LABS: CREATININE 1.2 mg/dL (0.55-1.3); SGOT/AST 28 U/L (15-37); SGPT/ALT 55 U/L (13-61)
[2023-08-08 15:23] LABS: BILIRUBIN,TOTAL 0.3 mg/dL (0.2-1); TOT PROT 8.1 g/dl (6.4-8.2)
[2023-08-08 15:25] LABS: ALK PHOS 58 U/L (45-117)
[2023-08-08] MEDS: diazePAM 5 MG TABLET PO SCH (17:59)
[2023-08-08] MEDS: THIAMINE HCL 100 MG TABLET (FP) PO SCH (22:23)
[2023-08-08] MEDS: MELATONIN 5 MG TABLETS PO SCH (22:24)
[2023-08-09] MEDS: amLODIPine BESYLATE 5 MG TABLET (FP) PO SCH (10:26)
[2023-08-09] MEDS: PRENATAL VITAMINS W/ FOLIC ACID TABLET (FP) PO SCH (10:26)
[2023-08-09] MEDS: METHOCARBAMOL 500 MG TABLET PO PRN (10:28)
[2023-08-09] MEDS: LACTULOSE 20 GM/30 ML UDC (FOR ORAL USE ONLY) PO SCH (22:27)
[2023-08-10] MEDS: diazePAM 5 MG TABLET PO SCH (05:28)
[2023-08-10] MEDS: BICTEGRAV/EMTRICIT/TENOFOV (BIKTARVY) 50-200-25 MG TABLET PO SCH (09:12)
[2023-08-11] MEDS: diazePAM 5 MG TABLET PO SCH (05:40)
[2023-08-12] MEDS: diazePAM 5 MG TABLET PO ONE (06:04)
[2023-08-12 07:08] VITALS: RESP 18
[2023-08-12 10:10] VITALS: BP 141/76; PULSE 89; TEMP 98
== END 2023-08-12 10:40 | disposition home or self-care (01) | DRG 774 ==
LOC: YASAS 09:42 → Y6N 11:37
PROVIDERS: ADMIT Allergy & Immunology; ATTEND Surgery
PROC: HZ2ZZZZ Detoxification Services for Substance Abuse Treatment (ICD-10-PCS; principal; 2023-08-08)
DX: F10.230 Alcohol dependence with withdrawal, uncomplicated (principal); F14.20 Cocaine dependence, uncomplicated; F12.20 Cannabis dependence, uncomplicated; Z21 Asymptomatic human immunodeficiency virus [HIV] infection status; E72.20 Disorder of urea cycle metabolism, unspecified; I10 Essential (primary) hypertension; R05.2 Subacute cough; Z87.891 Personal history of nicotine dependence
CPT/HCPCS: 36415; 80053; 80307; 82140; 85027; 86780; 87635; 93005; 93010

== ENCOUNTER 2023-08-29 12:36 | Inpatient (IN) | payer OTHER ==
[2023-08-29 12:53] VITALS: BMI 32.9
[2023-08-29] MEDS ORDERED: IBUPROFEN 600 MG TABLET (FP) PO PRN (13:59)
[2023-08-29] MEDS ORDERED: NALOXONE HCL 0.4 MG/ML VIAL IM PRN (13:59)
[2023-08-29] MEDS ORDERED: ACETAMINOPHEN 325 MG TABLET (FP) PO PRN (13:59)
[2023-08-29] MEDS ORDERED: NALOXONE HCL (KLOXXADO) 8 MG SPRAY NS PRN (13:59)
[2023-08-29] MEDS ORDERED: guaiFENesin 600 MG TABLET.ER (FP) PO PRN (13:59)
[2023-08-29] MEDS ORDERED: LOPERAMIDE HCL 2 MG CAPSULE PO PRN (13:59)
[2023-08-29] MEDS ORDERED: IBUPROFEN 400 MG TABLET (FP) PO PRN (13:59)
[2023-08-29] MEDS ORDERED: POLYETHYLENE GLYCOL (HEALTHYLAX) 3350 17 GM PACKET PO PRN (13:59)
[2023-08-29] MEDS ORDERED: MAGNESIUM HYDROX 2400MG/30ML ORAL SUSPENSION 30 ML CUP PO PRN (13:59)
[2023-08-29] MEDS ORDERED: BENZOCAINE/MENTHOL (CHLORASEPTIC ) LOZENGE MM PRN (13:59)
[2023-08-29] MEDS ORDERED: MAG HYDROX/AL HYDROX/SIMETH 30 ML UNIT-DOSE CUP PO PRN (13:59)
[2023-08-29] MEDS ORDERED: hydrOXYzine PAMOATE 25 MG CAPSULE (FP) PO PRN (13:59)
[2023-08-29] MEDS ORDERED: BENZONATATE 200 MG CAPSULE PO PRN (13:59)
[2023-08-29] MEDS: MELATONIN 5 MG TABLETS PO SCH (21:25)
[2023-08-29] MEDS: THIAMINE HCL 100 MG TABLET (FP) PO SCH (21:25)
[2023-08-30] MEDS: PRENATAL VITAMINS W/ FOLIC ACID TABLET (FP) PO SCH (09:44)
[2023-08-30 12:22] LABS: HEMATOCRIT 36.3 % (35.4-49); MCH 27.4 pg (25.7-33.7); MEAN CELL VOLUME 83.1 fl (80-96); MEAN PLT VOLUME 8.3 fl (7.5-11.1); PLATELET COUNT 252 10^3/uL (134-434); RBC 4.37 M/mm3 (4.00-5.60); RDW 14.8 % (11.9-15.9); WHITE BLOOD COUNT 3.9 K/mm3 (4.0-10.0)
[2023-08-30 12:45] LABS: CHLORIDE 106 mmol/L (98-107); POTASSIUM 4.4 mmol/L (3.5-5.1); SODIUM 138 mmol/L (136-145)
[2023-08-30 12:50] LABS: ANION GAP 5 mmol/L (4-13); CALCIUM 8.1 mg/dL (8.5-10.1); CO2 27 mmol/L (21-32)
[2023-08-30 12:51] LABS: BLOOD UREA NITROGEN 12.5 mg/dL (7-18); GLUCOSE,RANDOM 122 mg/dL (74-106)
[2023-08-30 12:52] LABS: CREATININE 0.9 mg/dL (0.55-1.3); SGOT/AST 26 U/L (15-37); SGPT/ALT 34 U/L (13-61)
[2023-08-30 12:54] LABS: BILIRUBIN,TOTAL 0.4 mg/dL (0.2-1); TOT PROT 6.4 g/dl (6.4-8.2)
[2023-08-30 12:55] LABS: ALK PHOS 63 U/L (45-117)
[2023-08-30 17:50] LABS: URINE APPEARANCE CLEAR; URINE BILIRUBIN NEGATIVE (NEGATIVE); URINE COLOR YELLOW; URINE GLUCOSE (UA) NEGATIVE (NEGATIVE); URINE KETONE NEGATIVE (NEGATIVE); URINE LEUK ESTERASE NEGATIVE (NEGATIVE); URINE NITRITE NEGATIVE (NEGATIVE); URINE PROTEIN NEGATIVE (NEGATIVE); URINE UROBILINOGEN 0.2 mg/dL (0.2-1.0)
[2023-08-30] MEDS: QUEtiapine FUMARATE 100 MG TABLET (FP) PO SCH (21:14)
[2023-09-10 06:32] VITALS: RESP 16
[2023-09-11 06:30] VITALS: TEMP 98.3
[2023-09-11 08:43] VITALS: BP 126/82; PULSE 99
== END 2023-09-11 10:05 | disposition home or self-care (01) | DRG 772 ==
LOC: YASAS 12:36 → Y3E 18:10
PROVIDERS: ADMIT Allergy & Immunology; ATTEND Psychiatry & Neurology Pain Medicine
PROC: HZ42ZZZ Group Counseling for Substance Abuse Treatment, Cognitive-Behavioral (ICD-10-PCS; principal; 2023-08-29)
DX: F10.20 Alcohol dependence, uncomplicated (principal); F14.20 Cocaine dependence, uncomplicated; F31.9 Bipolar disorder, unspecified; F19.282 Other psychoactive substance dependence with psychoactive substance-induced sleep disorder; Z21 Asymptomatic human immunodeficiency virus [HIV] infection status; I10 Essential (primary) hypertension; K21.9 Gastro-esophageal reflux disease without esophagitis; L30.9 Dermatitis, unspecified; Z86.19 Personal history of other infectious and parasitic diseases; Z87.891 Personal history of nicotine dependence; Z88.6 Allergy status to analgesic agent; Z88.8 Allergy status to other drugs, medicaments and biological substances
CPT/HCPCS: 36415; 80053; 80305; 80307; 81003; 83036; 85027; 86780; 87635; 87811; 93005; 93010

== ENCOUNTER 2024-01-15 14:33 | Inpatient (IN) | payer OTHER ==
[2024-01-15 15:41] VITALS: BMI 27.8
[2024-01-15] MEDS ORDERED: BENZOCAINE/MENTHOL (CHLORASEPTIC ) LOZENGE MM PRN (16:34)
[2024-01-15] MEDS ORDERED: BENZONATATE 200 MG CAPSULE PO PRN (16:34)
[2024-01-15] MEDS ORDERED: IBUPROFEN 400 MG TABLET (FP) PO PRN (16:34)
[2024-01-15] MEDS ORDERED: DOCUSATE SODIUM 100 MG CAPSULE (FP) PO PRN (16:34)
[2024-01-15] MEDS ORDERED: NICOTINE POLACRILEX 2 MG LOZENGE BC PRN (16:34)
[2024-01-15] MEDS ORDERED: NICOTINE POLACRILEX 2 MG GUM BUC PRN (16:34)
[2024-01-15] MEDS ORDERED: hydrOXYzine PAMOATE 25 MG CAPSULE (FP) PO PRN (16:34)
[2024-01-15] MEDS ORDERED: POLYETHYLENE GLYCOL (HEALTHYLAX) 3350 17 GM PACKET PO PRN (16:34)
[2024-01-15] MEDS ORDERED: MAGNESIUM HYDROX 2400MG/30ML ORAL SUSPENSION 30 ML CUP PO PRN (16:34)
[2024-01-15] MEDS ORDERED: MAG HYDROX/AL HYDROX/SIMETH 30 ML UNIT-DOSE CUP PO PRN (16:34)
[2024-01-15] MEDS ORDERED: LOPERAMIDE HCL 2 MG CAPSULE PO PRN (16:34)
[2024-01-15] MEDS ORDERED: guaiFENesin 600 MG TABLET.ER (FP) PO PRN (16:34)
[2024-01-15] MEDS: THIAMINE 100 MG TABLET PO SCH (21:09)
[2024-01-15] MEDS: MELATONIN 5 MG TABLETS PO SCH (21:10)
[2024-01-16] MEDS: PRENATAL VITAMINS W/ FOLIC ACID TABLET (FP) PO SCH (11:06)
[2024-01-16 12:00] LABS: CHLORIDE 107 mmol/L (98-107); HEMATOCRIT 38.6 % (35.4-49); HEMOGLOBIN 12.6 GM/dL (11.7-16.9); MCH 26.7 pg (25.7-33.7); MCHC 32.6 g/dl (32.0-35.9); MEAN CELL VOLUME 81.9 fl (80-96); MEAN PLT VOLUME 8.4 fl (7.5-11.1); PLATELET COUNT 206 10^3/uL (134-434); POTASSIUM 4.4 mmol/L (3.5-5.1); RBC 4.71 M/mm3 (4.00-5.60); RDW 14.3 % (11.9-15.9); SODIUM 140 mmol/L (136-145); WHITE BLOOD COUNT 4.5 K/mm3 (4.0-10.0)
[2024-01-16 12:11] LABS: ALBUMIN 3.1 g/dl (3.4-5.0); ANION GAP 5 mmol/L (4-13); BLOOD UREA NITROGEN 11.5 mg/dL (7-18); CALCIUM 8.1 mg/dL (8.5-10.1); CO2 28 mmol/L (21-32); GLUCOSE,RANDOM 78 mg/dL (74-106)
[2024-01-16 12:14] LABS: CREATININE 0.8 mg/dL (0.55-1.3)
[2024-01-16 12:15] LABS: SGOT/AST 13 U/L (15-37); SGPT/ALT 15 U/L (13-61)
[2024-01-16 12:17] LABS: ALK PHOS 58 U/L (45-117); BILIRUBIN,TOTAL 0.8 mg/dL (0.2-1); TOT PROT 7.2 g/dl (6.4-8.2)
[2024-01-16 16:59] LABS: URINE APPEARANCE CLEAR; URINE BILIRUBIN NEGATIVE (NEGATIVE); URINE COLOR YELLOW; URINE GLUCOSE (UA) NEGATIVE (NEGATIVE); URINE KETONE NEGATIVE (NEGATIVE); URINE LEUK ESTERASE NEGATIVE (NEGATIVE); URINE NITRITE NEGATIVE (NEGATIVE); URINE PROTEIN NEGATIVE (NEGATIVE); URINE UROBILINOGEN 0.2 mg/dL (0.2-1.0)
[2024-01-17 06:20] VITALS: RESP 18
[2024-01-17] MEDS: IBUPROFEN 600 MG TABLET (FP) PO PRN (10:16)
[2024-01-18 06:51] VITALS: TEMP 97.8
[2024-01-20 06:37] VITALS: BP 118/76; PULSE 82
== END 2024-01-20 10:55 | disposition left against medical advice (07) | DRG 770 ==
LOC: YASAS 14:33 → Y5N 17:05
PROVIDERS: ADMIT Allergy & Immunology; ATTEND Psychiatry & Neurology Pain Medicine
PROC: HZ42ZZZ Group Counseling for Substance Abuse Treatment, Cognitive-Behavioral (ICD-10-PCS; principal; 2024-01-15)
DX: F10.20 Alcohol dependence, uncomplicated (principal); F14.20 Cocaine dependence, uncomplicated; F12.20 Cannabis dependence, uncomplicated; F17.210 Nicotine dependence, cigarettes, uncomplicated; F31.9 Bipolar disorder, unspecified; I10 Essential (primary) hypertension; Z21 Asymptomatic human immunodeficiency virus [HIV] infection status; Z59.00 Homelessness unspecified
CPT/HCPCS: 36415; 80053; 80305; 80307; 81003; 85027; 86780; 87811

== ENCOUNTER 2024-04-15 12:05 | Inpatient (IN) | payer OTHER ==
[2024-04-15 12:28] VITALS: BMI 30.8
[2024-04-15] MEDS ORDERED: diazePAM 5 MG TABLET PO PRN (12:42)
[2024-04-15] MEDS ORDERED: IBUPROFEN 400 MG TABLET (FP) PO PRN (12:44)
[2024-04-15] MEDS ORDERED: LOPERAMIDE HCL 2 MG CAPSULE PO PRN (12:44)
[2024-04-15] MEDS ORDERED: BENZOCAINE/MENTHOL (CHLORASEPTIC ) LOZENGE MM PRN (12:44)
[2024-04-15] MEDS ORDERED: NICOTINE POLACRILEX 2 MG GUM BUC PRN (12:44)
[2024-04-15] MEDS ORDERED: POLYETHYLENE GLYCOL (HEALTHYLAX) 3350 17 GM PACKET PO PRN (12:44)
[2024-04-15] MEDS ORDERED: hydrOXYzine PAMOATE 25 MG CAPSULE (FP) PO PRN (12:44)
[2024-04-15] MEDS ORDERED: ONDANSETRON *ODT* 4 MG TABLET SL PRN (12:44)
[2024-04-15] MEDS ORDERED: DICYCLOMINE HCL 10 MG CAPSULE PO PRN (12:44)
[2024-04-15] MEDS ORDERED: MAGNESIUM HYDROX 2400MG/30ML ORAL SUSPENSION 30 ML CUP PO PRN (12:44)
[2024-04-15] MEDS ORDERED: MAG HYDROX/AL HYDROX/SIMETH 30 ML UNIT-DOSE CUP PO PRN (12:44)
[2024-04-15] MEDS ORDERED: IBUPROFEN 600 MG TABLET (FP) PO PRN (12:44)
[2024-04-15] MEDS ORDERED: BENZONATATE 200 MG CAPSULE PO PRN (12:44)
[2024-04-15] MEDS ORDERED: BISMUTH SUBSALICYLATE 262 MG/15 ML BTL PO PRN (12:44)
[2024-04-15] MEDS ORDERED: METHOCARBAMOL 500 MG TABLET PO PRN (12:44)
[2024-04-15] MEDS ORDERED: guaiFENesin 600 MG TABLET.ER (FP) PO PRN (12:44)
[2024-04-15] MEDS ORDERED: NICOTINE POLACRILEX 2 MG LOZENGE BC PRN (12:44)
[2024-04-15] MEDS ORDERED: NALOXONE (NARCAN) HCL 4 MG/0.1 ML SPRAY NS PRN (12:44)
[2024-04-15] MEDS: diazePAM 5 MG TABLET PO SCH (17:18)
[2024-04-15] MEDS: QUEtiapine FUMARATE 100 MG TABLET (FP) PO SCH (22:33)
[2024-04-15] MEDS: THIAMINE 100 MG TABLET PO SCH (22:33)
[2024-04-15] MEDS: MELATONIN 5 MG TABLETS PO SCH (22:33)
[2024-04-16] MEDS: diazePAM 5 MG TABLET PO SCH (05:31)
[2024-04-16] MEDS: amLODIPine BESYLATE 5 MG TABLET (FP) PO SCH (10:03)
[2024-04-16] MEDS: PRENATAL VITAMINS W/ FOLIC ACID TABLET (FP) PO SCH (10:03)
[2024-04-16] MEDS: BICTEGRAV/EMTRICIT/TENOFOV (BIKTARVY) 50-200-25 MG TABLET PO SCH (10:03)
[2024-04-16 12:28] LABS: HEMATOCRIT 37.2 % (35.4-49); HEMOGLOBIN 12.6 GM/dL (11.7-16.9); MCH 27.9 pg (25.7-33.7); MEAN CELL VOLUME 82.2 fl (80-96); MEAN PLT VOLUME 8.2 fl (7.5-11.1); PLATELET COUNT 231 10^3/uL (134-434); RBC 4.53 M/mm3 (4.00-5.60); RDW 16.1 % (11.9-15.9); WHITE BLOOD COUNT 4.1 K/mm3 (4.0-10.0)
[2024-04-16 14:55] LABS: CHLORIDE 109 mmol/L (98-107); POTASSIUM 4.7 mmol/L (3.5-5.1); SODIUM 140 mmol/L (136-145)
[2024-04-16 14:57] LABS: ALBUMIN 3.3 g/dl (3.4-5.0); CALCIUM 8.6 mg/dL (8.5-10.1)
[2024-04-16 14:58] LABS: ANION GAP 5 mmol/L (4-13); BLOOD UREA NITROGEN 16.7 mg/dL (7-18); CO2 26 mmol/L (21-32); GLUCOSE,RANDOM 105 mg/dL (74-106)
[2024-04-16 15:01] LABS: SGOT/AST 18 U/L (15-37); SGPT/ALT 24 U/L (13-61)
[2024-04-16 15:02] LABS: BILIRUBIN,TOTAL 0.4 mg/dL (0.2-1); TOT PROT 7.1 g/dl (6.4-8.2)
[2024-04-16 15:04] LABS: ALK PHOS 64 U/L (45-117)
[2024-04-17] MEDS: diazePAM 5 MG TABLET PO SCH (05:30)
[2024-04-18] MEDS: diazePAM 5 MG TABLET PO ONE (05:33)
[2024-04-18] MEDS: NALOXONE (NYS OPIOID OVERDOSE PROGRAM) 4 MG/0.1 ML SPRAY NS PRN (08:38)
[2024-04-18 08:52] VITALS: BP 123/80; PULSE 100; RESP 16; TEMP 98.1
== END 2024-04-18 09:04 | disposition home or self-care (01) | DRG 774 ==
LOC: YASAS 12:05 → Y6N 13:15
PROVIDERS: ADMIT Allergy & Immunology; ATTEND Surgery
PROC: HZ2ZZZZ Detoxification Services for Substance Abuse Treatment (ICD-10-PCS; principal; 2024-04-15)
DX: F10.230 Alcohol dependence with withdrawal, uncomplicated (principal); F14.20 Cocaine dependence, uncomplicated; F12.20 Cannabis dependence, uncomplicated; F17.210 Nicotine dependence, cigarettes, uncomplicated; F19.24 Other psychoactive substance dependence with psychoactive substance-induced mood disorder; F31.9 Bipolar disorder, unspecified; Z21 Asymptomatic human immunodeficiency virus [HIV] infection status; K21.9 Gastro-esophageal reflux disease without esophagitis; Z59.01 Sheltered homelessness
CPT/HCPCS: 36415; 80053; 80305; 80307; 85027

== ENCOUNTER 2024-06-08 14:29 | Inpatient (IN) | payer OTHER ==
[2024-06-08 15:22] VITALS: BMI 30.9
[2024-06-08] MEDS ORDERED: BISMUTH SUBSALICYLATE 524 MG/30 ML PO PRN (17:19)
[2024-06-08] MEDS ORDERED: MAG HYDROX/AL HYDROX/SIMETH 30 ML UNIT-DOSE CUP PO PRN (17:19)
[2024-06-08] MEDS ORDERED: ONDANSETRON *ODT* 4 MG TABLET SL PRN (17:19)
[2024-06-08] MEDS ORDERED: DICYCLOMINE HCL 10 MG CAPSULE PO PRN (17:19)
[2024-06-08] MEDS ORDERED: guaiFENesin 600 MG TABLET.ER (FP) PO PRN (17:19)
[2024-06-08] MEDS ORDERED: BENZONATATE 200 MG CAPSULE PO PRN (17:19)
[2024-06-08] MEDS ORDERED: POLYETHYLENE GLYCOL (HEALTHYLAX) 3350 17 GM PACKET PO PRN (17:19)
[2024-06-08] MEDS ORDERED: MAGNESIUM HYDROX 2400MG/30ML ORAL SUSPENSION 30 ML CUP PO PRN (17:19)
[2024-06-08] MEDS ORDERED: IBUPROFEN 400 MG TABLET (FP) PO PRN (17:19)
[2024-06-08] MEDS ORDERED: BENZOCAINE/MENTHOL (CHLORASEPTIC ) LOZENGE MM PRN (17:19)
[2024-06-08] MEDS ORDERED: LOPERAMIDE HCL 2 MG CAPSULE PO PRN (17:19)
[2024-06-08] MEDS: MELATONIN 5 MG TABLETS PO SCH (22:18)
[2024-06-08] MEDS: THIAMINE 100 MG TABLET PO SCH (22:18)
[2024-06-09] MEDS: IBUPROFEN 600 MG TABLET (FP) PO PRN (05:53)
[2024-06-09] MEDS: hydrOXYzine PAMOATE 25 MG CAPSULE (FP) PO PRN (09:38)
[2024-06-09] MEDS: METHOCARBAMOL 500 MG TABLET PO PRN (09:38)
[2024-06-09] MEDS: amLODIPine BESYLATE 5 MG TABLET (FP) PO SCH (09:38)
[2024-06-09] MEDS: PRENATAL VITAMINS W/ FOLIC ACID TABLET (FP) PO SCH (09:39)
[2024-06-09 12:30] LABS: HEMATOCRIT 38.1 % (35.4-49); HEMOGLOBIN 12.6 GM/dL (11.7-16.9); MCH 27.4 pg (25.7-33.7); MCHC 33.2 g/dl (32.0-35.9); MEAN CELL VOLUME 82.8 fl (80-96); PLATELET COUNT 227 10^3/uL (134-434); POTASSIUM 4.4 mmol/L (3.5-5.1); RDW 14.3 % (11.9-15.9); WHITE BLOOD COUNT 4.3 K/mm3 (4.0-10.0)
[2024-06-09 12:32] LABS: ALBUMIN 3.2 g/dl (3.4-5.0); BLOOD UREA NITROGEN 19.9 mg/dL (7-18); CALCIUM 8.9 mg/dL (8.5-10.1)
[2024-06-09 12:35] LABS: CREATININE 0.9 mg/dL (0.55-1.3)
[2024-06-09 12:37] LABS: BILIRUBIN,TOTAL 0.2 mg/dL (0.2-1); TOT PROT 6.8 g/dl (6.4-8.2)
[2024-06-09] MEDS ORDERED: diazePAM 5 MG TABLET PO PRN (12:46)
[2024-06-09] MEDS: diazePAM 5 MG TABLET PO SCH (17:38)
[2024-06-09] MEDS: QUEtiapine FUMARATE 50 MG TABLET PO SCH (22:27)
[2024-06-11] MEDS: diazePAM 5 MG TABLET PO SCH (05:24)
[2024-06-12] MEDS: diazePAM 5 MG TABLET PO SCH (05:41)
[2024-06-12 06:41] VITALS: TEMP 97.6
[2024-06-12 09:06] VITALS: BP 112/66; PULSE 98; RESP 18
[2024-06-12] MEDS: NALOXONE (NYS OPIOID OVERDOSE PROGRAM) 4 MG/0.1 ML SPRAY NS SCH (10:54)
[2024-06-13] MEDS ORDERED: diazePAM 5 MG TABLET PO ONE (06:00)
== END 2024-06-12 10:30 | disposition home or self-care (01) | DRG 774 ==
LOC: YASAS 14:29 → Y6N 17:57 → UNDOADMIN 17:57 → UNDODISIN 06-12 10:30
PROVIDERS: ADMIT Allergy & Immunology; ATTEND Surgery
PROC: HZ2ZZZZ Detoxification Services for Substance Abuse Treatment (ICD-10-PCS; principal; 2024-06-08)
DX: F10.230 Alcohol dependence with withdrawal, uncomplicated (principal); F14.20 Cocaine dependence, uncomplicated; F12.20 Cannabis dependence, uncomplicated; F17.210 Nicotine dependence, cigarettes, uncomplicated; F19.282 Other psychoactive substance dependence with psychoactive substance-induced sleep disorder; F19.24 Other psychoactive substance dependence with psychoactive substance-induced mood disorder; F41.8 Other specified anxiety disorders; Z21 Asymptomatic human immunodeficiency virus [HIV] infection status; G47.00 Insomnia, unspecified; I10 Essential (primary) hypertension; K21.9 Gastro-esophageal reflux disease without esophagitis; Z56.0 Unemployment, unspecified; Z59.01 Sheltered homelessness
CPT/HCPCS: 36415; 80053; 85027

== ENCOUNTER 2024-09-02 09:49 | Inpatient (IN) | payer OTHER ==
[2024-09-02 10:02] VITALS: BMI 28.5
[2024-09-02] MEDS ORDERED: ONDANSETRON *ODT* 4 MG TABLET SL PRN (10:21)
[2024-09-02] MEDS ORDERED: POLYETHYLENE GLYCOL (HEALTHYLAX) 3350 17 GM PACKET PO PRN (10:21)
[2024-09-02] MEDS ORDERED: NICOTINE POLACRILEX 2 MG GUM BUC PRN (10:21)
[2024-09-02] MEDS ORDERED: MAG HYDROX/AL HYDROX/SIMETH 30 ML UNIT-DOSE CUP PO PRN (10:21)
[2024-09-02] MEDS ORDERED: guaiFENesin 600 MG TABLET.ER (FP) PO PRN (10:21)
[2024-09-02] MEDS ORDERED: BENZONATATE 200 MG CAPSULE PO PRN (10:21)
[2024-09-02] MEDS ORDERED: IBUPROFEN 400 MG TABLET (FP) PO PRN (10:21)
[2024-09-02] MEDS ORDERED: MAGNESIUM HYDROX 2400MG/30ML ORAL SUSPENSION 30 ML CUP PO PRN (10:21)
[2024-09-02] MEDS ORDERED: ACETAMINOPHEN 325 MG TABLET (FP) PO PRN (10:21)
[2024-09-02] MEDS ORDERED: DICYCLOMINE HCL 10 MG CAPSULE PO PRN (10:21)
[2024-09-02] MEDS ORDERED: BENZOCAINE/MENTHOL (CHLORASEPTIC ) LOZENGE MM PRN (10:21)
[2024-09-02] MEDS ORDERED: hydrOXYzine PAMOATE 25 MG CAPSULE (FP) PO PRN (10:21)
[2024-09-02] MEDS ORDERED: LOPERAMIDE HCL 2 MG CAPSULE PO PRN (10:21)
[2024-09-02] MEDS ORDERED: METHOCARBAMOL 500 MG TABLET PO PRN (10:21)
[2024-09-02] MEDS ORDERED: NALOXONE (NARCAN) HCL 4 MG/0.1 ML SPRAY NS PRN (10:21)
[2024-09-02] MEDS ORDERED: PATIENT'S OWN MEDICATION (NON-FORMULARY) (Dolutegravir Sodium/Lamivudine [Dovato 50-300 Mg PO SCH (10:30)
[2024-09-02] MEDS: amLODIPine BESYLATE 5 MG TABLET (FP) PO SCH (11:27)
[2024-09-02] MEDS: BISMUTH SUBSALICYLATE 262 MG/15 ML BTL PO PRN (12:33)
[2024-09-02] MEDS: IBUPROFEN 600 MG TABLET (FP) PO PRN (12:33)
[2024-09-02] MEDS: DOLUTEGRAVIR SODIUM 50 MG TABLET (NON-FORMULARY) PO SCH (12:33)
[2024-09-02] MEDS: NALTREXONE HCL 50 MG TABLET PO SCH (15:47)
[2024-09-02] MEDS: MELATONIN 5 MG TABLETS PO SCH (21:51)
[2024-09-02] MEDS: QUEtiapine FUMARATE 50 MG TABLET PO SCH (21:51)
[2024-09-02] MEDS: BENZTROPINE MESYLATE 0.5 MG TABLET (FP) PO SCH (21:51)
[2024-09-02] MEDS: THIAMINE 100 MG TABLET PO SCH (21:51)
[2024-09-02] MEDS: MIRTAZAPINE 15 MG TABLET (FP) PO SCH (21:51)
[2024-09-02] MEDS ORDERED: QUEtiapine FUMARATE 100 MG TABLET (FP) PO PRN (22:00)
[2024-09-03 06:12] VITALS: RESP 16
[2024-09-03] MEDS: PRENATAL VITAMINS W/ FOLIC ACID TABLET (FP) PO SCH (09:42)
[2024-09-03 11:03] LABS: POTASSIUM 3.8 mmol/L (3.5-5.1)
[2024-09-03 11:06] LABS: ALBUMIN 3.9 g/dl (3.4-5.0); BLOOD UREA NITROGEN 8.4 mg/dL (7-18); CALCIUM 8.9 mg/dL (8.5-10.1)
[2024-09-03 11:10] LABS: CREATININE 1.1 mg/dL (0.55-1.3)
[2024-09-03 11:11] LABS: BILIRUBIN,TOTAL 0.7 mg/dL (0.2-1); TOT PROT 8.3 g/dl (6.4-8.2)
[2024-09-03 11:22] LABS: HEMATOCRIT 39.9 % (40.1-51.0); HEMOGLOBIN 12.9 g/dL (13.7-17.5); MCHC 32.3 g/dl (32.3-36.5); MEAN CELL VOLUME 81.4 fl (79.0-92.2); MEAN PLT VOLUME 10.9 fl (9.4-12.4); PLATELET COUNT # 214 x10^3/uL (163-337); RDW 12.8 % (12.1-15.9)
[2024-09-03 12:38] VITALS: BP 117/62; PULSE 63; TEMP 98
== END 2024-09-03 15:00 | disposition other institution (70) | DRG 774 ==
LOC: YASAS 09:49 → Y3N 11:30
PROVIDERS: ADMIT Allergy & Immunology; ATTEND Allergy & Immunology
PROC: HZ2ZZZZ Detoxification Services for Substance Abuse Treatment (ICD-10-PCS; principal; 2024-09-02)
DX: F10.20 Alcohol dependence, uncomplicated (principal); F14.20 Cocaine dependence, uncomplicated; F17.210 Nicotine dependence, cigarettes, uncomplicated; F19.282 Other psychoactive substance dependence with psychoactive substance-induced sleep disorder; F19.24 Other psychoactive substance dependence with psychoactive substance-induced mood disorder; F41.8 Other specified anxiety disorders; Z21 Asymptomatic human immunodeficiency virus [HIV] infection status; I10 Essential (primary) hypertension; K21.9 Gastro-esophageal reflux disease without esophagitis; Z79.899 Other long term (current) drug therapy; Z88.8 Allergy status to other drugs, medicaments and biological substances
CPT/HCPCS: 36415; 80053; 80305; 80307; 85027; 86593; 86780; 86803; 93005; 93010